=== PATIENT | male | born 1955 | race Caucasian/White ===

== ENCOUNTER 2016-09-20 09:13 | Emergency (ER) | payer MEDICARE ==
[~2016-09-20 09:13] MED LIST: ASPI81TA82 PO; PRAV20 PO
[2016-09-20 09:15] VITALS: BP 120/92; PULSE 94; RESP 22; TEMP 98.6; O2SAT 97
[2016-09-20] MEDS ORDERED: TETANUS/DIPHTHERIA TOXOID ADULT 0.5 ML VIAL IM ONE (09:15)
[2016-09-20] MEDS ORDERED: LIDOCAINE 1%/EPINEPHrine 1:100,000 SOLN 20 ML VIAL INFIL ONE (09:15)
--- NOTE | 2016-09-20 09:24 | PD ---
HPI Chief Complaint: seizure Time Seen by Provider: 09:15 Travel History International Travel<30 days: No Contact w/Intl Traveler<30days: No Traveled to known affect area: No History of Present Illness HPI 61-year-old male was brought in by EMS after a seizure episode. Patient was at a local store and had a seizure episode. Witnesses described the seizure generalized tonic clonic. Patient fell and hit his head. Patient has a laceration to the back of the head. Patient states that he has burning pain to the back to the head. Patient also states that he bit his tongue. Patient denies any visual change. Patient denies any neck pain. Patient denies any chest pain or shortness of breath. Patient denies abdominal pain. Patient denies any focal weakness or numbness of extremity. Patient denies any history of illicit drug abuse. Patient states that he drinks alcohol once in a while. Patient denies any history of DT in the past. Patient denies any history of seizure. Patient states that he is not up-to-date with TD booster. Patient has history of neck and back surgery in the past. Patient also has history of left ventricular ejection fraction of 50%. PFSH Past Medical History Hx Anticoagulant Therapy: No Arthritis: No Asthma: No Heart Rhythm Problems: No Cancer: No Cardiovascular Problems: No Chemotherapy: No Congestive Heart Failure: No COPD: No Cerebrovascular Accident: No Diabetes: No Diminished Hearing: No Endocrine: No GERD: No Glaucoma: No Genitourinary: No Headaches: No Hepatitis: No Hiatal Hernia: No Hypertension: No Immune Disorder: No Implanted Vascular Access Dvce: Yes Musculoskeletal: Yes Neurologic: No Psychiatric: No Reproductive: No Respiratory: No Immunizations Current: No Migraines: No Renal Failure: No Seizures: No Thyroid Disease: No Ulcer: No Past Surgical History Abdominal Surgery: No Body Medical Devices: CERVICAL HARDWARE Cardiac Surgery: No Ear Surgery: No Endocrine Surgery: No Eye Surgery: No Genitourinary Surgery: No Gynecologic Surgery: No Oral Surgery: No Pacemaker: No Thoracic Surgery: No Other Surgery: Yes Social History Alcohol Use: Yes ("VERY RARELY") Tobacco Use: No Substance Use: No Allergies-Medications (Allergen,Severity, Reaction): Coded Allergies: Aspirin (Verified Adverse Reaction, Severe, NAUSEA, 09/20/16) Codeine (Verified Adverse Reaction, Severe, HIVES, 09/20/16) Darvocet-N 100 (Verified Adverse Reaction, Severe, NAUSEA, 09/20/16) Ibuprofen (Verified Adverse Reaction, Severe, NAUSEA, 09/20/16) Reported Meds & Prescriptions Reported Meds & Active Scripts Active Keppra (Levetiracetam) 750 Mg Tab 750 Mg PO BID Augmentin (Amoxicillin-Clavulanate) 875-125 Mg Tab 1 Tab PO BID Review of Systems General / Constitutional: No: Fever Eyes: No: Visual changes HENT: Positive: Headaches Cardiovascular: No: Chest Pain or Discomfort Respiratory: No: Shortness of Breath Gastrointestinal: No: Abdominal Pain Genitourinary: No: Dysuria Musculoskeletal: No: Pain Skin: No Rash Neurologic: No: Weakness Psychiatric: No: Depression Endocrine: No: Polydipsia Hematologic/Lymphatic: No: Easy Bruising Physical Exam Narrative GENERAL: Well-nourished, well-developed patient. SKIN: Focused skin assessment warm/dry. HEAD: Normocephalic. Patient has a V-shaped laceration measuring about 7 centimeter on the occipital area of the scalp. No active bleeding. EYES: No scleral icterus. No injection or drainage. Pupils 3 mm equal reactive. Patient has abrasion and with mild ecchymosis tip of the tongue. No active bleeding. NECK: Supple, trachea midline. No JVD or lymphadenopathy. CARDIOVASCULAR: Regular rate and rhythm without murmurs, gallops, or rubs. RESPIRATORY: Breath sounds equal bilaterally. No accessory muscle use. GASTROINTESTINAL: Abdomen soft, non-tender, nondistended. MUSCULOSKELETAL: No cyanosis, or edema. BACK: Nontender without obvious deformity. No CVA tenderness. Neurologic exam: Patient is awake and alert oriented 3. No obvious focal neurological deficit. Data Data Last Documented VS Vital Signs Date Time Temp Pulse Resp B/P Pulse Ox O2 Delivery O2 Flow Rate FiO2 09/20/16 10:13 98.6 88 20 95/74 96 Orders Electrocardiogram (09/20/16 09:15) Complete Blood Count With Diff (09/20/16 09:15) Comprehensive Metabolic Panel (09/20/16 09:15) Prothrombin Time / Inr (Pt) (09/20/16 09:15) Act Partial Throm Time (Ptt) (09/20/16 09:15) Urinalysis - C+S If Indicated (09/20/16 09:15) Thyroid Stimulating Hormone (09/20/16 09:15) Chest, Single Ap (09/20/16 09:15) Ct Brain W/O Iv Contrast(Rout) (09/20/16 09:15) Iv Access Insert/Monitor (09/20/16 09:15) Ecg Monitoring (09/20/16 09:15) Oximetry (09/20/16 09:15) Drug Screen, Random Urine (09/20/16 09:15) Tetanus/Diphtheria Tox Adult (Tetanus/Di (09/20/16 09:15) Lidocai-Epi 1%-1:100,000 Inj (Xylocaine- (09/20/16 09:30) Sodium Chlor 0.9% 1000 Ml Inj (Ns 1000 M (09/20/16 10:15) Labs Laboratory Tests Test 09/20/16 09:25 White Blood Count 9.2 TH/MM3 Red Blood Count 4.43 MIL/MM3 Hemoglobin 13.2 GM/DL Hematocrit 37.8 % Mean Corpuscular Volume 85.4 FL Mean Corpuscular Hemoglobin 29.9 PG Mean Corpuscular Hemoglobin 35.0 % Concent Red Cell Distribution Width 13.0 % Platelet Count 265 TH/MM3 Mean Platelet Volume 7.3 FL Neutrophils (%) (Auto) % Lymphocytes (%) (Auto) % Monocytes (%) (Auto) % Eosinophils (%) (Auto) % Basophils (%) (Auto) % Neutrophils # (Auto) TH/MM3 Lymphocytes # (Auto) TH/MM3 Monocytes # (Auto) TH/MM3 Eosinophils # (Auto) TH/MM3 Basophils # (Auto) TH/MM3 CBC Comment AUTO DIFF Differential Total Cells 100 Counted Neutrophils % (Manual) 82 % Lymphocytes % 9 % Monocytes % 8 % Eosinophils % 1 % Neutrophils # (Manual) 7.5 TH/MM3 Differential Comment FINAL DIFF MANUAL Platelet Estimate NORMAL Platelet Morphology Comment NORMAL Red Cell Morphology Comment NORMAL Prothrombin Time 10.7 SEC Prothromb Time International 1.0 RATIO Ratio Activated Partial 27.0 SEC Thromboplast Time Sodium Level 140 MEQ/L Potassium Level 3.4 MEQ/L Chloride Level 105 MEQ/L Carbon Dioxide Level 24.2 MEQ/L Anion Gap 11 MEQ/L Blood Urea Nitrogen 31 MG/DL Creatinine 1.20 MG/DL Estimat Glomerular Filtration 62 ML/MIN Rate Random Glucose 118 MG/DL Calcium Level 8.4 MG/DL Total Bilirubin 0.8 MG/DL Aspartate Amino Transf 37 U/L (AST/SGOT) Alanine Aminotransferase 32 U/L (ALT/SGPT) Alkaline Phosphatase 106 U/L Total Protein 7.3 GM/DL Albumin 3.7 GM/DL Thyroid Stimulating Hormone 1.990 uIU/ML [address] [place] [address] Medical Decision Making Medical Screen Exam Complete: Yes Emergency Medical Condition: Yes Interpretation(s) Last Impressions Head CT 09/20/16914 Signed Impressions: Service Date/Time: Tuesday, September 20, 2016 09:35 - CONCLUSION: Bilateral maxillary sinus air-fluid levels and mucosal thickening. Sumeet Ruffin MD Chest X-Ray 09/20/16914 Signed Impressions: Service Date/Time: Tuesday, September 20, 2016 09:37 - CONCLUSION: No acute disease. Sumeet Rufifn MD 10:27 AM. CBC within normal limit. Potassium 3.4. CMP otherwise within normal limit. BUN 31. Differential Diagnosis Differential diagnosis including seizure, TIA, CVA, electrolyte abnormality, head injury Narrative Course 61-year-old male with seizure and head injury. TD booster given. I spoke with neurologist treasury management sales consultant, Dr. New. Advised Keppra and follow-up in the office. Keppra 1 g IV given. Normal saline solution 1 L IV bolus. Procedures Procedure Narrative LACERATION LOCATION: Scalp LENGTH: 7 cm NUMBER OF STITCHES/MACK: 14 REPAIR: The area of the laceration was prepped with Betadine and sterilely draped. The laceration was infiltrated with 1% lidocaine with epinephrine. The wound was copiously irrigated and explored without evidence of foreign body , tendon injury or neurovascular injury. The wound was closed using mack. This was a single layer repair. A sterile dressing was applied. The patient was advised to keep the dressing clean and dry. Patient tolerated the procedure well. Diagnosis Primary Impression: Seizure Additional Impressions: Scalp laceration Qualified Code: S01.01XA - Scalp laceration, initial encounter Sinusitis Qualified Code: J01.00 - Acute non-recurrent maxillary sinusitis Dehydration Abrasion of tongue Qualified Code: S00.512A - Abrasion of tongue, initial encounter Patient Instructions: General Instructions Additional Instructions: Keppra as directed. Augmentin as directed. Follow-up with neurologist. No driving until cleared by neurologist. Head trauma instructions given. Wound care daily. Return or see physician in 10 days for staple removal. Med/Other Pt SpecificInfo: Prescription(s) given Scripts Levetiracetam (Keppra)750 Mg Hyo812 Mg PO BID #60 TAB Ref 0 Prov:Buck Mercedes MD 09/20/16 Amoxicillin-Clavulanate (Augmentin)875-125 Mg Tab1 Tab PO BID #20 TAB Prov:Buck Mercedes MD 09/20/16 Disposition: 01 DISCHARGE HOME Condition: Stable Buck Mercedes MD Sep 20, 2016 09:24
[2016-09-20 09:30] VITALS: O2SAT 97
[2016-09-20] MEDS ORDERED: LIDOCAINE 1%/EPINEPHrine 1:100,000 SOLN 30 ML VIAL INFIL ONE (09:30)
[2016-09-20 09:36] LABS: HEMATOCRIT 37.8 % (39.0-51.0); MEAN CELL VOLUME 85.4 FL (80.0-100.0); MEAN CORPUSCULAR HEMOGLOBIN 29.9 PG (27.0-34.0); PLATELET COUNT 265 TH/MM3 (150-450); RED BLOOD COUNT 4.43 MIL/MM3 (4.50-5.90); WHITE BLOOD COUNT 9.2 TH/MM3 (4.0-11.0)
--- NOTE | 2016-09-20 09:46 | RADRPT ---
EXAM DATE/TIME: 09/20/2016 09:37 [facility] COMPARISON: CHEST SINGLE AP, September 18, 2015, 15:14. INDICATIONS : Syncope with fall MEDICAL HISTORY : None. SURGICAL HISTORY : Spinal ENCOUNTER: Initial ACUITY: 1 day PAIN SCORE: 0/10 LOCATION: Bilateral chest FINDINGS: A single view of the chest demonstrates the lungs to be symmetrically aerated without evidence of mas s, infiltrate or effusion. The cardiomediastinal contours are unremarkable. Osseous structures are intact. ACDF hardware overlies the cervical spine. CONCLUSION: No acute disease. Sumeet Ruffin MD on September 20, 2016 at 9:43 Board Certified Radiologist. This report was verified electronically.
[2016-09-20 09:52] LABS: HEMO FLAGS AUTO DIFF
[2016-09-20 09:55] LABS: CHLORIDE 105 MEQ/L (98-107); POTASSIUM 3.4 MEQ/L (3.5-5.1); SODIUM (NA) 140 MEQ/L (136-145)
[2016-09-20 09:58] LABS: ANION GAP 11 MEQ/L (5-15); BICARBONATE 24.2 MEQ/L (21.0-32.0)
[2016-09-20 09:59] LABS: BLOOD UREA NITROGEN 31 MG/DL (7-18); PROTHROMBIN TIME - PATIENT 10.7 SEC (9.8-11.6)
[2016-09-20 10:01] LABS: ALT (GPT) 32 U/L (12-78)
[2016-09-20 10:02] LABS: GLOMERULAR FILTRATION RATE 62 ML/MIN (>89)
[2016-09-20 10:03] LABS: AST (GOT) 37 U/L (15-37); TOTAL BILIRUBIN ADULT 0.8 MG/DL (0.2-1.0)
[2016-09-20 10:04] LABS: ALKALINE PHOSPHATASE 106 U/L (45-117)
[2016-09-20 10:07] LABS: EOSINOPHILS 1 % (0-4); NEUTROPHIL # MANUAL DIFF 7.5 TH/MM3 (1.8-7.7); PLATELET ESTIMATE SMEAR NORMAL (NORMAL); PLATELET MORPHOLOGY NORMAL (NORMAL); POLYS (SEG NEUTROPHILS) 82 % (16-70); SCAN/DIFF FINAL DIFF MANUAL; WBC DIFF SAMPLE 100
--- NOTE | 2016-09-20 10:08 | RADRPT ---
EXAM DATE/TIME: 09/20/2016 09:35 [facility] COMPARISON: No previous studies available for comparison. INDICATIONS : Witnessed seizure fell, hit the back of his head, laceration. RADIATION DOSE: 65.14 CTDIvol (mGy) MEDICAL HISTORY : None SURGICAL HISTORY : Fusion, cervical. ENCOUNTER: Initial ACUITY: 1 day PAIN SCALE: 7/10 LOCATION: posterior head TECHNIQUE: Multiple contiguous axial images were obtained of the head. Using automated exposure control and adj ustment of the mA and/or kV according to patient size, radiation dose was kept as low as reasonably a chievable to obtain optimal diagnostic quality images. DICOM format image data is available electro nically for review and comparison. FINDINGS: CEREBRUM: The ventricles are normal for age. No evidence of midline shift, mass lesion, hemorrhage or acute in farction. No extra-axial fluid collections are seen. POSTERIOR FOSSA: The cerebellum and brainstem are intact. The 4th ventricle is midline. The cerebellopontine angle i s unremarkable. EXTRACRANIAL: The visualized portion of the orbits is intact. SKULL: The calvaria is intact. No evidence of skull fracture. Air-fluid levels and mucosal thickening in bi lateral maxillary sinuses. CONCLUSION: Bilateral maxillary sinus air-fluid levels and mucosal thickening. Sumeet Ruffin MD on September 20, 2016 at 10:03 Board Certified Radiologist. This report was verified electronically.
[2016-09-20 10:13] VITALS: BP 95/74; PULSE 88; RESP 20; TEMP 98.6; O2SAT 96
[2016-09-20] MEDS ORDERED: SODIUM CHLOR 0.9% 1000 ML INJ 1,000 ML IV ONE (10:15)
[2016-09-20] MEDS ORDERED: AUGM875T3 PO (10:29)
[2016-09-20] MEDS ORDERED: KEPP750T PO (10:29)
[2016-09-20] MEDS ORDERED: levETIRAcetam 1000 MG INJ 100 ML IV ONE (10:45)
[2016-09-20 11:20] VITALS: BP 106/77
--- NOTE | 2016-09-20 11:50 | EKG ---
Date Performed: 09/20/2016 Time Performed: 09:30:20 PTAGE: 61 years EKG: Sinus rhythm LEFT ATRIAL ENLARGEMENT POSSIBLE LEFT VENTRICULAR HYPERTROPHY NONSPECIFIC ST & T-WAVE ABNORMALITY AB NORMAL ECG Compared to prior electrocardiogram, T-wave changes are more prominent. PREVIOUS TRACING : 09/18/2015 20.35 DOCTOR: Terry Jean Interpretating Date/Time 09/20/2016 11:50:12
== END 2016-09-20 11:21 | disposition home or self-care (01) ==
LOC: PHED 09:13
DX: S01.01XA Laceration without foreign body of scalp, initial encounter (principal); S00.512A Abrasion of oral cavity, initial encounter; E86.0 Dehydration; J01.00 Acute maxillary sinusitis, unspecified; R56.9 Unspecified convulsions; Z23 Encounter for immunization; R94.31 Abnormal electrocardiogram [ECG] [EKG]; W18.30XA Fall on same level, unspecified, initial encounter; Y93.9 Activity, unspecified; Y99.9 Unspecified external cause status; Y92.512 Supermarket, store or market as the place of occurrence of the external cause; I51.7 Cardiomegaly
CPT/HCPCS: 12002; 70450; 71010; 80053; 84443; 85007; 85027; 85610; 85730; 90714; 93005; 96365; 96372; 99285; J1953; J7030

== ENCOUNTER 2016-10-02 07:35 | Emergency (ER) | payer MEDICARE ==
[~2016-10-02] VITALS: Ht 170.2 cm; Wt 88.0 kg
[~2016-10-02 07:35] MED LIST changes: -ASPI81TA82 PO; +AUGM875T3 PO; +KEPP750T PO; -PRAV20 PO
--- NOTE | 2016-10-02 07:53 | PD ---
HPI Chief Complaint: Staple removal Time Seen by Provider: 07:37 Travel History International Travel<30 days: No Contact w/Intl Traveler<30days: No History of Present Illness HPI 61yo M presents to the ED for staple removal. Pt was here on 09/20/16 and had scalp laceration after seizure. States he has an outpatient neurologist appointment set up. Denies any fever, chest pain, sob, n/v, abdominal pain, focal weakness or numbness or any other seizure. PFSH Past Medical History Hx Anticoagulant Therapy: No Arthritis: No Asthma: No Heart Rhythm Problems: No Cancer: No Cardiovascular Problems: No Chemotherapy: No Congestive Heart Failure: No COPD: No Cerebrovascular Accident: No Diabetes: No Diminished Hearing: No Endocrine: No GERD: No Glaucoma: No Genitourinary: No Headaches: No Hepatitis: No Hiatal Hernia: No Hypertension: No Immune Disorder: No Implanted Vascular Access Dvce: Yes Musculoskeletal: Yes Neurologic: No Psychiatric: No Reproductive: No Respiratory: No Immunizations Current: No Migraines: No Renal Failure: No Seizures: No Thyroid Disease: No Ulcer: No Past Surgical History Abdominal Surgery: No Body Medical Devices: CERVICAL HARDWARE Cardiac Surgery: No Ear Surgery: No Endocrine Surgery: No Eye Surgery: No Genitourinary Surgery: No Gynecologic Surgery: No Oral Surgery: No Pacemaker: No Thoracic Surgery: No Other Surgery: Yes Social History Alcohol Use: Yes ("VERY RARELY") Tobacco Use: No Substance Use: No Allergies-Medications (Allergen,Severity, Reaction): Coded Allergies: Aspirin (Verified Adverse Reaction, Severe, NAUSEA, 09/20/16) Codeine (Verified Adverse Reaction, Severe, HIVES, 09/20/16) Darvocet-N 100 (Verified Adverse Reaction, Severe, NAUSEA, 09/20/16) Ibuprofen (Verified Adverse Reaction, Severe, NAUSEA, 09/20/16) Reported Meds & Prescriptions Reported Meds & Active Scripts Active Keppra (Levetiracetam) 750 Mg Tab 750 Mg PO BID Augmentin (Amoxicillin-Clavulanate) 875-125 Mg Tab 1 Tab PO BID Review of Systems Except as stated in HPI: all other systems reviewed are Neg Physical Exam Narrative GENERAL: 61yo M not in distress. SKIN: Focused skin assessment warm/dry. HEAD: +14 rosalba posterior scalp. EYES: Pupils equal and round. No scleral icterus. No injection or drainage. ENT: No nasal bleeding or discharge. Mucous membranes pink and moist. NECK: Trachea midline. No JVD. CARDIOVASCULAR: Regular rate and rhythm. No murmur appreciated. RESPIRATORY: No accessory muscle use. Clear to auscultation. Breath sounds equal bilaterally. GASTROINTESTINAL: Abdomen soft, non-tender, nondistended. MUSCULOSKELETAL: No obvious deformities. No clubbing. No cyanosis. No edema. NEUROLOGICAL: Awake and alert. No obvious cranial nerve deficits. Motor grossly within normal limits. Normal speech. PSYCHIATRIC: Appropriate mood and affect; insight and judgment normal. Data Data Last Documented VS Vital Signs Date Time Temp Pulse Resp B/P Pulse Ox O2 Delivery O2 Flow Rate FiO2 10/02/16 07:55 98.4 74 16 99/72 98 MDM Medical Decision Making Medical Screen Exam Complete: Yes Emergency Medical Condition: Yes Differential Diagnosis Staple removal Narrative Course 61yo M here with staple removal. There were some superficial bleeding after staple removal but wound is well approximated. +Scabs. Pt tolerated procedure. Procedures Procedure Narrative Total of 14 rosalba were removed. Diagnosis Primary Impression: Removal of rosalba Patient Instructions: General Instructions Departure Forms: Tests/Procedures Additional Instructions: Please follow up with your PMD in 3-7 days. Return to the ED if symptoms worsen. Med/Other Pt SpecificInfo: No Change to Meds Disposition: 01 DISCHARGE HOME Condition: Stable Yvonne Ospina DO Oct 02, 2016 07:53
[2016-10-02 07:55] VITALS: BP 99/72; PULSE 74; RESP 16; TEMP 98.4; O2SAT 98
== END 2016-10-02 08:48 | disposition home or self-care (01) ==
LOC: PHED 07:35
DX: S01.01XD Laceration without foreign body of scalp, subsequent encounter (principal); X58.XXXD Exposure to other specified factors, subsequent encounter; Z48.02 Encounter for removal of sutures
CPT/HCPCS: 99281

== ENCOUNTER 2016-11-19 10:36 | Emergency (ER) | payer MEDICARE, OTHER ==
[~2016-11-19] VITALS: Ht 170.2 cm; Wt 88.0 kg
[2016-11-19 10:39] VITALS: BP 115/78; PULSE 101; RESP 16; TEMP 97.4; O2SAT 99
[2016-11-19] MEDS ORDERED: PRED20 PO (11:22)
[2016-11-19] MEDS ORDERED: NORC5TAB PO (11:22)
[2016-11-19] MEDS ORDERED: CYCL1TAB29 PO (11:22)
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
== END 2016-11-19 11:29 | disposition home or self-care (01) ==
LOC: PHED 10:36 → PHEFT 11:29
DX: M43.6 Torticollis (principal)
CPT/HCPCS: 99284

== ENCOUNTER 2016-12-29 04:52 | Inpatient (IN) | payer MEDICARE, OTHER ==
[~2016-12-29] VITALS: Ht 172.7 cm; Wt 91.5 kg
[2016-12-29] VITALS (12 sets, daily range): BP systolic 119–135; BP diastolic 89–107; PULSE 46–100; RESP 18–20; TEMP 96.3–98.6; O2SAT 95–99
[~2016-12-29 04:52] MED LIST changes: -AUGM875T3 PO; +CYCL1TAB29 PO; -KEPP750T PO; +NORC5TAB PO; +PRED20 PO
[2016-12-29] MEDS ORDERED: SODIUM CHLORIDE 0.9% FLUSH 10 ML FLUSH IVF PRN (05:15)
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
[2016-12-29 05:27] LABS: BASOPHIL % 0.4 % (0.0-2.0); EOSINOPHIL % 0.7 % (0.0-4.0); HEMATOCRIT 41.5 % (39.0-51.0); HEMO FLAGS DIFF FINAL; LYMPH % 21.9 % (9.0-44.0); LYMPHOCYTE # 1.5 TH/MM3 (1.0-4.8); MEAN CELL VOLUME 87.2 FL (80.0-100.0); MEAN CORPUSCULAR HEMOGLOBIN 28.4 PG (27.0-34.0); MEAN CORPUSCULAR HGB CONC 32.5 % (32.0-36.0); MONO % 4.1 % (0.0-8.0); NEUT % 72.9 % (16.0-70.0); PLATELET COUNT 284 TH/MM3 (150-450); RED BLOOD COUNT 4.76 MIL/MM3 (4.50-5.90); RED CELL DISTRIBUTION WIDTH 14.2 % (11.6-17.2); WHITE BLOOD COUNT 6.8 TH/MM3 (4.0-11.0)
[2016-12-29 05:33] LABS: CHLORIDE 107 MEQ/L (98-107); POTASSIUM 4.4 MEQ/L (3.5-5.1); SODIUM (NA) 138 MEQ/L (136-145)
[2016-12-29 05:37] LABS: ANION GAP 7 MEQ/L (5-15); BLOOD UREA NITROGEN 23 MG/DL (7-18)
[2016-12-29 05:40] LABS: ALT (GPT) 42 U/L (12-78); AST (GOT) 23 U/L (15-37); GLOMERULAR FILTRATION RATE 68 ML/MIN (>89)
[2016-12-29 05:41] LABS: TOTAL BILIRUBIN ADULT 0.5 MG/DL (0.2-1.0)
[2016-12-29 05:43] LABS: ALKALINE PHOSPHATASE 97 U/L (45-117)
--- NOTE | 2016-12-29 05:50 | RADRPT ---
EXAM DATE/TIME: 12/29/2016 05:17 [facility] COMPARISON: CHEST SINGLE AP, September 20, 2016, 9:37. INDICATIONS : Shortness of breath. MEDICAL HISTORY : None. SURGICAL HISTORY : Fusion, cervical. ENCOUNTER: Initial ACUITY: 1 day PAIN SCORE: 0/10 LOCATION: Bilateral chest FINDINGS: Lungs are focally clear. No pleural effusion evident. Cardiac contours are stable and satisfactory cu rrent for technique and projection. CONCLUSION: No acute disease Mirza Russ MD on December 29, 2016 at 5:48 Board Certified Radiologist. This report was verified electronically.
[2016-12-29 05:57] LABS: APTT (PATIENT) 28.1 SEC (24.3-30.1); PROTHROMBIN TIME - PATIENT 10.7 SEC (9.8-11.6)
[2016-12-29 05:58] LABS: CREATINE KINASE 100 U/L (39-308)
[2016-12-29] MEDS ORDERED: IOHEXOL 350 MG/ML 10 ML VIAL (for RAD DIAG) IVCONTRAST ONE (06:43)
--- NOTE | 2016-12-29 06:49 | RADRPT ---
EXAM DATE/TIME: 12/29/2016 06:24 [facility] COMPARISON: No previous studies available for comparison. INDICATIONS : Shortness of breath. IV CONTRAST: 75 cc Omnipaque 350 (iohexol) IV RADIATION DOSE: 18.59 CTDIvol (mGy) MEDICAL HISTORY : None SURGICAL HISTORY : None. ENCOUNTER: Initial ACUITY: 1 day PAIN SCALE: 6/10 LOCATION: Bilateral chest TECHNIQUE: Volumetric scanning of the chest was performed using a pulmonary embolism protocol MIP images were re constructed. Using automated exposure control and adjustment of the mA and/or kV according to patien t size, radiation dose was kept as low as reasonably achievable to obtain optimal diagnostic quality images. DICOM format image data is available electronically for review and comparison. Follow-up recommendations for detected pulmonary nodules are based at a minimum on nodule size and pa tient risk factors according to Fleischner Society Guidelines. FINDINGS: PULMONARY ARTERIES: No filling defects are seen in the pulmonary arteries through the segmental level. LUNGS: Middle basilar atelectasis. PLEURAE: Small-moderate size bilateral effusions. Fissural fluid present. MEDIASTINUM: Mild prominence of central mediastinal lymph nodes. Coronary artery calcifications. MUSCULOSKELETAL: Within normal limits for patient age. MISCELLANEOUS: The visualized upper abdominal organs demonstrate no acute abnormality. CONCLUSION: Bilateral pleural effusions. Mild basilar atelectasis. No evidence of pulmonary embolism. Mirza Russ MD on December 29, 2016 at 6:44 Board Certified Radiologist. This report was verified electronically.
[2016-12-29] MEDS ORDERED: FUROSEMIDE 40 MG/4 ML VIAL IV PUSH ONE (07:00)
[2016-12-29] MEDS ORDERED: SODIUM CHLORIDE 0.9% FLUSH 10 ML FLUSH IV FLUSH PRN (07:15)
[2016-12-29] MEDS: SODIUM CHLORIDE 0.9% FLUSH 10 ML FLUSH IV FLUSH SCH ×2 (09:00→21:15)
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
--- NOTE | 2016-12-29 12:42 | EKG ---
Date Performed: 12/29/2016 Time Performed: 05:23:58 PTAGE: 61 years EKG: Sinus rhythm LEFT ATRIAL ENLARGEMENT NONSPECIFIC T-WAVE ABNORMALITY ABNORMAL ECG Compared to prior tracing no sig nificant change PREVIOUS TRACING : 09/20/2016 09.30 DOCTOR: Ashutosh Thomas Interpretating Date/Time 12/29/2016 12:36:54
[2016-12-29] MEDS: PANTOPRAZOLE SOD 40 MG DELAYED RELEASE TAB PO SCH (17:19)
[2016-12-29] MEDS ORDERED: diphenhydrAMINE HCL 50 MG CAP PO PRN (17:30)
[2016-12-30] VITALS (10 sets, daily range): BP systolic 107–142; BP diastolic 83–110; PULSE 84–99; RESP 17–20; TEMP 97.1–98; O2SAT 96–99
[2016-12-30 06:56] LABS: BICARBONATE 27.7 MEQ/L (21.0-32.0); POTASSIUM 3.6 MEQ/L (3.5-5.1)
[2016-12-30] MEDS: PANTOPRAZOLE SOD 40 MG DELAYED RELEASE TAB PO SCH (08:16)
[2016-12-30] MEDS: SODIUM CHLORIDE 0.9% FLUSH 10 ML FLUSH IV FLUSH SCH ×2 (08:16→21:00)
[2016-12-30] MEDS ORDERED: LISINOPRIL 10 MG TAB PO SCH (09:30)
--- NOTE | 2016-12-30 09:59 | PD.PN.STU ---
Subjective Remarks Pt is a 61y M who came in the ER on 12/29/16 for SOB lasting about a week. Initially, symptomatic on exertion and relieved by rest, but progressed to symptoms while at rest with no relief. Today, pt reports feeling well and denies SOB, MACKAY, CP, peripheral edema. Pt reports ambulating well to the bathroom and around the room. Objective Vitals Vital Signs Date Time Temp Pulse Resp B/P (MAP) Pulse Ox O2 Delivery O2 Flow Rate FiO2 12/30/16 08:00 97.9 90 18 120/94 (103) 98 12/30/16 04:00 97.9 91 20 142/110 (121) 99 12/30/16 00:00 97.9 94 18 131/97 (108) 98 12/29/16 20:29 95 21 12/29/16 20:00 98.6 98 20 120/92 (101) 96 12/29/16 16:00 98.5 100 20 133/107 (116) 97 12/29/16 12:00 98.2 93 18 119/100 (106) 98 12/29/16 10:13 46 I/O 12/29/16 12/29/16 12/29/16 12/30/16 12/30/16 12/30/16 07:00 15:00 23:00 07:00 15:00 23:00 Intake Total 60 ml 240 ml Output Total 300 ml Balance -240 ml 240 ml Intake Oral 60 ml 240 ml Output Urine Total 300 ml # Voids 5 # Bowel Movements 1 Result Diagram: 12/29/16 0510 12/30/16 0617 Other Results 12/30/16 12/30/16 12/31/16 15:00 23:00 07:00 Intake Total 240 ml Balance 240 ml Intake Oral 240 ml # Voids 5 # Bowel Movements 1 Imaging Laboratory Tests Test 12/29/16 05:10 12/29/16 12:15 12/30/16 06:17 Neutrophils (%) (Auto) 72.9 % (16.0-70.0) D-Dimer Quantitative (PE/DVT) 1.30 MG/L FEU (0.00-0.50) Blood Urea Nitrogen 23 MG/DL (7-18) 24 MG/DL (7-18) Calcium Level 8.3 MG/DL (8.5-10.1) Estimat Glomerular Filtration Rate 68 ML/MIN (>89) 62 ML/MIN (>89) Troponin I 0.06 NG/ML (0.02-0.05) B-Type Natriuretic Peptide 1513 PG/ML (0-100) Last Impressions CT Angiography 12/29/16 0559 Signed Impressions: Service Date/Time: Thursday, December 29, 2016 06:24 - CONCLUSION: Bilateral pleural effusions. Mild basilar atelectasis. No evidence of pulmonary embolism. Mirza Russ MD Chest X-Ray 12/29/16 0509 Signed Impressions: Service Date/Time: Thursday, December 29, 2016 05:17 - CONCLUSION: No acute disease Mirza Russ MD Objective Remarks GENERAL: very pleasant, well-developed male who was in no acute distress SKIN: Warm and dry. HEAD: Normocephalic. EYES: No scleral icterus. No injection or drainage. NECK: Supple, trachea midline. No JVD or lymphadenopathy. CARDIOVASCULAR: Regular rate and rhythm with a systolic murmur heard in left 3rd and 4th intercostal space. RESPIRATORY: Breath sounds equal bilaterally. No accessory muscle use. GASTROINTESTINAL: Abdomen soft, non-tender, nondistended. MUSCULOSKELETAL: moves all 4 extremities with no difficulty. No cyanosis, or edema. BACK: Nontender without obvious deformity. Procedures Reviewed echo results from Dr. Pyane A/P Assessment and Plan 1. SOB- improved. Echo results reviewed, consulted cardiology for severe aortic stenosis/chf, transfer patient to [facility] for poss aortic valve replacement surgery. Troponin and TSH wnl. 2. Mildly elevated troponin- normalized 3. Mild hypocalcemia- normalized Medical Decision Making Impression and Plan The exam, history, and the medical decision-making described in the above note were completed by the student with my assistance as the dictating practitioner. I attest that I had a [id number] encounter with the patient on the same day, and personally performed all of the history, exam, or medical decision making. I reviewed and agree with the plan. Patient examined, Plan discussed with patient, spouse and [id number] at bedside Care plan also discussed with instructor watch assembly Dr. Payne Patient will transfer to the [facility] for left heart catheter and further evaluation and treatment planning for symptomatic severe aortic stenosis with congestive heart failure Padmini Fuentes M3 Dec 30, 2016 09:59 Deana Rojas MD Dec 30, 2016 11:56
--- NOTE | 2016-12-30 10:56 | RADRPT ---
EXAM DATE/TIME: 12/30/2016 10:08 [facility] COMPARISON: CT PULMONARY ANGIOGRAM, December 29, 2016, 6:24. INDICATIONS : Short of breath. Pleural effusion. MEDICAL HISTORY : None. SURGICAL HISTORY : Discectomy, cervical. Tonsillectomy. ENCOUNTER: Initial ACUITY: 2 days PAIN SCORE: 0/10 LOCATION: chest FINDINGS: Interstitial prominence associated with small pleural effusions and fluid within the interlobar fissu res has developed. Heart remains normal in size. There are no consolidating infiltrates. CONCLUSION: Diffuse interstitial prominence associated with small bilateral effusions and fluid in interlobar fis sures. This characteristic of either mild congestion or acute interstitial pneumonitis. Ricardo Chase MD on December 30, 2016 at 10:52 Board Certified Radiologist. This report was verified electronically.
--- NOTE | 2016-12-30 11:33 | ECHRPT ---
Indication: Heart Failure CONCLUSIONS The left ventricular systolic function is severely reduced with an estimated ejection fraction in th e range of 25-30%. Mildly dilated left ventricle. There is global left ventricular dysfunction. Mild mitral valve regurgitation. Severe calcification of the aortic valve. Possible bicuspid aortic valve, although difficult to determine from this study Severe aortic valve stenosis (peak 71, mean 45, PARTH 0.5) Trace aortic valve regurgitation. BP: 131 / 97 HR: 108 Rhythm: Sinus MEASUREMENTS (Male / Female) Normal Values Technical Quality:Good 2D ECHO LV Diastolic Diameter PLAX 5.7 cm 4.2 - 5.9 / 3.9 - 5.3 cm LV Systolic Diameter PLAX 4.8 cm IVS Diastolic Thickness 1.0 cm 0.6 - 1.0 / 0.6 - 0.9 cm LVPW Diastolic Thickness 1.0 cm 0.6 - 1.0 / 0.6 - 0.9 cm LV Relative Wall Thickness 0.4 RV Internal Dim ED PLAX 2.5 cm LVOT Diameter 2.5 cm LA Systolic Diameter LX 4.0 cm 3.0 - 4.0 / 2.7 - 3.8 cm LV Ejection Fraction MOD 4C 29.7 % LV Cardiac Index MOD 4C 2932.9 cm/minm LV Ejection Fraction 4C AL 27.8 % LV Cardiac Index 4C AL 2813.2 cm/minm M-MODE Aortic Root Diameter MM 3.7 cm LA Systolic Diameter MM 4.0 cm LA Ao Ratio MM 1.1 AV Cusp Separation MM 1.0 cm DOPPLER AV Peak Velocity 421.5 cm/s AV Peak Gradient 71.1 mmHg AV Mean Gradient 44.5 mmHg AV Velocity Time Integral 95.0 cm AI Peak Velocity 347.0 cm/s AI Peak Gradient 48.2 mmHg AI Pressure Half Time 586.0 ms LVOT Peak Velocity 42.8 cm/s LVOT Peak Gradient 0.7 mmHg LVOT Velocity Time Integral 10.3 cm LVOT Cardiac Index 2698.7 cm/minm AV Area Cont Eq vti 0.5 cm AV Area Cont Eq pk 0.5 cm MV Peak Velocity 88.2 cm/s MV Peak Gradient 3.1 mmHg MV Mean Velocity 45.5 cm/s MV Mean Gradient 1.0 mmHg MV Area PHT 2.3 cm Mitral E Point Velocity 104.0 cm/s Mitral A Point Velocity 51.8 cm/s Mitral E to A Ratio 2.0 LV E' Lateral Velocity 5.0 cm/s Mitral E to LV E' Lateral Ratio 20.9 PV Peak Velocity 57.0 cm/s PV Peak Gradient 1.3 mmHg FINDINGS LEFT VENTRICLE The left ventricular systolic function is severely reduced with an estimated ejection fraction in th e range of 25-30%. Mildly dilated left ventricle. Wall thickness is normal. There is global left ventricular dysfunction. RIGHT VENTRICLE The right ventricular systoilc function is mildly decreased. LEFT ATRIUM The left atrial size is normal. RIGHT ATRIUM The right atrial size is normal. ATRIAL SEPTUM Normal atrial septal thickness without atrial level shunting by limited color doppler interrogation. AORTA The aortic root and proximal ascending aorta are normal in size on limited imaging. MITRAL VALVE Structurally normal mitral valve. Mild thickening of the mitral valve leaflets. Mild mitral valve regurgitation. No mitral valve stenosis. AORTIC VALVE The aortic valve is not well visualized. Severe calcification of the aortic valve. Possible bicuspid aortic valve, although difficult to determine from this study Trace aortic valve regurgitation. Severe aortic valve stenosis (peak 71, mean 45, PARTH 0.5) TRICUSPID VALVE Structurally normal tricuspid valve. No tricuspid valve stenosis or regurgitation. PULMONARY VALVE The pulmonary valve is not well visualized. VESSELS The inferior vena cava is normal in size. PERICARDIUM No pericardial effusion. Al Payne DO (Electronically Signed) Final Date:30 December 2016 11:32
[2016-12-31] VITALS (30 sets, daily range): BP systolic 90–111; BP diastolic 63–81; PULSE 72–101; RESP 16–18; TEMP 97.1–98.6; O2SAT 97–100
[2016-12-31] MEDS ORDERED: HEPARIN-NS/PF INJ 1,500 ML ONE (08:13)
[2016-12-31] MEDS ORDERED: MIDAZOLAM HCL 2 MG/2 ML VIAL ONE (08:13)
[2016-12-31] MEDS ORDERED: HEPARIN SODIUM - IV 10,000 UNITS/10 ML VIAL ONE (08:14)
[2016-12-31] MEDS ORDERED: VERAPAMIL HCL 5 MG/2 ML VIAL ONE (08:14)
[2016-12-31] MEDS ORDERED: NITROGLYCERIN INJ 5 ML ONE (08:14)
[2016-12-31] MEDS: SODIUM CHLORIDE 0.9% FLUSH 10 ML FLUSH IV FLUSH SCH ×2 (09:00→21:00)
[2016-12-31] MEDS ORDERED: ATROPINE SULFATE 1 MG/ML VIAL IV PUSH PRN (09:45)
[2016-12-31] MEDS ORDERED: SODIUM CHLOR 0.9% 250 ML INJ 250 ML IV PRN (09:45)
[2016-12-31] MEDS ORDERED: ONDANSETRON HCL 4 MG/2 ML VIAL IV PUSH PRN (09:45)
[2016-12-31] MEDS ORDERED: MISC INFORMATION XX ONE (09:45)
--- NOTE | 2016-12-31 09:45 | CATHPROC ---
[facility] HIS Report Study Information Study Number Admission Scheduled Start Study Start [id number] Dec 30 2016 11:54AM 12/30/2016 Dec 31 2016 8:00AM [place] Service Cardiac Catheterization Admit Source Facility Department Emergency department [facility] - [facility] Physician and Clinical Staff Initial MD Payne, Al Investigator Fraudfabiana Villegas RN, Jon Recorder Mounika Clark,COAT EXAMINER TECH2 Scrub Tatianna Nowak,STU TECH2 Procedures Performed Procedure Location (Site) Vessel Name Coronary Angiograms LCA Left Coronary Coronary Angiograms RCA Right Coronary IVUS Lft Main Prox Left Coronary Wire insertion Fem Art (right) Femoral Art Equipment Time Ruffling Hemmer Automatic Description Size Mfg Part Number Used/Scraped [id number] 09:17 GUIDO [employer] WIRE, ASACEED Tech PROWATER 180CM 180CM Used *[id number] 08:39 GRANGER VELÁZQUEZ SWAN RAFIA CATHETER FR 7 Used *[id number] TRANSDUCER, TRUWAVE [id number] 08:39 GRANGER VELÁZQUEZ * Used W/STOCKCOCK *[id number] TRANSDUCER, TRUWAVE [id number] 08:39 GRANGER VELÁZQUEZ * Used W/STOCKCOCK *[id number]- INTRODUCER SET, 08:47 [employer]. FR 5 SC-NT-U-SST Used MICROPUNCTURE, STIFFENED *[id number] [id number] *[id number] [id number] *[id number] 534-521T *[id number] 08:39 Baoku PACK, CCL CUSTOM * Used *[id number] 09:16 MEDTRONIC/AVE EBU 3.5 Z2 GUIDE CATHETER FR 6 Used *[id number] 08:39 SandForce MEDICAL SHEATH, FR5.5 PRELUDE 11CM FR 5 [id number] Used [id number]- 09:16 MERIT MEDICAL SHEATH, FR6.5 PRELUDE 11CM FR 6.5 038ACT Used *[id number]- 08:40 MERIT MEDICAL SHEATH, FR7.5 PRELUDE 11CM FR 7.5 11CM Used 038ACT [id number] 08:39 [employer] MEDICAL WIRE, 3MMJ .035 180CM 180CM Used *[id number] 08:39 NAMIC MANIFOLD, 2 PORT * Used *[id number] 08:39 NAMIC MANIFOLD, 4 PORT * Used *[id number] 08:39 NYCOMED OMNIPAQUE, 350 MG, 150ML 150ML [id number] Used [id number] 08:39 [employer] [place] MEDICAL BLANKET,WARM AIR CCL * Used *[id number] CATHETER, NENANA EYE KONGIGANAK [id number] 09:19 [place]OL[place]O Used IMAGING *[id number] Equipment Model, Serial, Lot Number and Expiration Data Description Model Number Serial Number Lot Number Expiration Date CATHETER, NENANA EYE KONGIGANAK [id number] 10-20-2018 IMAGING History: Allergies Allergy Reaction aspirin NAUSEA codeine HIVES Darvocet-N 100 NAUSEA ibuprofen NAUSEA propoxyphene NAUSEA acetaminophen NAUSEA No Known Allergies History: Risk Factors Family History of Hypertension Dyslipidemia Previous MD Previous Heart Failure Premature CAD No No No No No Prior Valve Prior PCI Prior CABG Surgery No No No Cerebrovascular Peripheral Artery Chronic Lung On Dialysis Diabetes Disease Disease Disease No No No No No History: Symptoms/Diagnosis Selection Items MCGILL SOB History: Stress Tests Stress or Imaging Studies Performed No History: Other Current Smoker No Labs Hgb (g/dl) Hct (%) RBC (MIL/MM3) WBC (l/cumm) Platelets (thousands) 11.60-17.00 35.00-51.00 4.00-5.90 4.00-11.00 150.00-450.00 13.5 41.5 4.7 6.8 284 Glucose (mg/dl) BUN (mg/dl) Creatinine (mg/dl) BUN:Creatinine (1:x) 74.00-106.00 7.00-18.00 0.50-1.30 10.00-20.00 101 27 1.2 22.5 Na (meq/l) K (meq/l) Cl (meq/l) CO2 (mmol/L) Ca (mg/dl) 136.00-145.00 3.50-5.10 98.00-107.00 21.00-32.00 8.50-10.10 139 3.6 105 27.7 8.5 PT (sec) PTT (sec) INR (PTT:PT) 9.80-11.60 24.30-30.10 0.90-1.10 10.7 28.1 1 Troponin I (ng/ml) 0.02-0.05 0.05 Medication Medication Total Dose (Bolus/Oral) Medication Total Dosage/Unit 1% XYLOCAINE 20 mL FENTANYL 50 mcg HEPARIN 6300 units Medications (Bolus/Oral) Medication Time Given Dosage/Unit Administered By Reason FENTANYL 12/31/2016 8:36:13 AM 50 mcg Jon Villegas RN 50 mcg FENTANYL given in lab by Jon Villegas RN in Left Antecubital via Peripheral IV. Ordered by Al Bennett. 1% XYLOCAINE 12/31/2016 8:37:38 AM 20 mL Al Payne 20 mL 1% XYLOCAINE given in lab by Al Payne in Right Groin via Subcutaneous. Ordered by Al Wallis. HEPARIN 12/31/2016 9:19:07 AM 6300 units Jon Villegas RN 6300 units HEPARIN given in lab by Jon Villegas RN in Left Antecubital via Peripheral IV. Ordered by Al Payne. Medication (Drip) Medication Time Given Dosage/Unit Concentration/Unit Diluent (ml) Solution IV Solutions 12/31/2016 8:15:11 AM 0 mL (IV) 500 NaCl .9 IV Solutions given in lab by Jon Villegas RN in Left Antecubital via Peripheral IV. Pump/Drip Flow = 20 ml/hr using NaCl .9. Ordered by Al Payne. Initial Case Assessment Cardiovascular HR NIBP 89 114/94 Edema Present Skin color Skin None Normal Warm Dry Circulatory - Right Pulses Dorsalis Pedis Femoral 3 3 Scale (0,1,2,3,4,d) Circulatory - Left Pulses Dorsalis Pedis Femoral 3 3 Scale (0,1,2,3,4,d) Neurological State Oriented to time-place- Alert Moves all extremities person Respiration - General Respiration Rate SpO2 (%) (B/min) 18 99 Final Case Assessment Cardiovascular HR NIBP 87 103/88 Edema Present Skin color Skin None Normal Warm Dry Circulatory - Right Pulses Dorsalis Pedis Femoral 3 3 Scale (0,1,2,3,4,d) Circulatory - Left Pulses Dorsalis Pedis Femoral 3 3 Scale (0,1,2,3,4,d) Neurological State Oriented to time-place- Alert Moves all extremities person Respiration - General Respiration Rate SpO2 (%) (B/min) 15 95 Chronological Log Time Study Chronological Log 8:09:11 Patient arrived via Bed. 8:09:13 Patient Name, D.O.B, / Armband Verified By R.N. 8:09:14 Consent signed by the physician and the patient and verified by the [facility] staff. 8:15:02 Pre-op and post- op instructions given; patient acknowledges understanding of instructions. 8:15:04 Patient has been NPO for More than 6Hrs. 8:15:05 NO Skin Breakdown- 8:15:06 Patient Warmer Placed on the Table. 8:15:07 Pablito Prominences Protected 8:15:10 A # 2 IV was noted in the Antecubital (left). Grade = 0 IV Solutions given in lab by Jon Villegas RN in Left Antecubital via Peripheral IV. Pump/Drip F low = 20 ml/hr using NaCl 8:15:11 .9. Ordered by Al Payne. Vitals capture started with the following parameters, Patient=Adult, Interval=3 min, Initial Pr grhovi=711 mmHg, 8:18:08 Deflation Rate=5 mmHg, Cuff placed on Left Ankle 8:18:43 HR=89 bpm, ZVGH=859/94 mmhg, SpO2=98.0 %, Resp=18 B/min, Pain=0, Kimmy=10, Ty=2 Assessment: Initial Case, HR=89 BPM, ENIC=705/94 mmhg, Edema=None, Color=Normal, Skin = Warm, D ry Right Pulses: Osman Ped=3, Femoral=3 8:18:56 Left Pulses: Osman Ped=3, Femoral=3 Neurological: State=Alert, Ox3, ARELLANO Respiration: Resp=18 B/min, SpO2=99 % 8:20:59 Reference ECG taken 8:21:35 HR=89 bpm, SZHJ=300/88 mmhg, SpO2=99.0 %, Resp=19 B/min, Pain=0, Kimmy=10, Ty=2 8:24:35 HR=79 bpm, DXRL=497/85 mmhg, SpO2=98 %, Resp=15 B/min, Pain=0, Kimmy=10, Ty=2 8:27:35 HR=91 bpm, UKOJ=404/85 mmhg, SpO2=98.0 %, Resp=14 B/min, Pain=0, Kimmy=10, Ty=2 8:30:38 HR=85 bpm, TRVK=681/87 mmhg, SpO2=99.0 %, Resp=13 B/min, Pain=0, Kimmy=10, Ty=2 8:31:23 Bilateral groins prepped with 2% chlorhexidine, and draped after a 3 minute waiting time. 8:32:22 Pressure channel 1 zeroed. 8:33:36 HR=92 bpm, AACJ=775/89 mmhg, SpO2=97 %, Resp=15 B/min, Pain=0, Kimmy=10, Ty=2 Time Out. Correct patient, correct procedure, correct physician, power injector not loaded with contrast with surgical 8:35:51 team present. Time Out Concurred by MD and individual staff in procedure. 8:36:13 50 mcg FENTANYL given in lab by Jon Villegas RN in Left Antecubital via Peripheral IV. Order ed by Al Payne. 8:36:36 HR=88 bpm, LJMI=834/75 mmhg, SpO2=95.0 %, Resp=14 B/min, Pain=0, Kimmy=10, Ty=2 8:36:38 Case Start 8:37:38 20 mL 1% XYLOCAINE given in lab by Al Payne in Right Groin via Subcutaneous. Ordere d by Al Payne. 8:39:16 Access site was Right Femoral Artery. A INTRODUCER SET, MICROPUNCTURE, STIFFENED FR 5 was advanced into the Fem Art (right) using the Modified 8:39:21 Seldinger technique. 8:39:34 HR=86 bpm, GWRU=675/86 mmhg, SpO2=98.0 %, Resp=14 B/min, Pain=0, Kimmy=10, Ty=2 A SHEATH, FR5.5 PRELUDE 11CM FR 5 was exchanged in the Fem Art (right). This was necessary in or itzel to achieve 8:39:40 vascular hemostasis. 8:42:35 HR=91 bpm, UVDQ=736/88 mmhg, SpO2=95.0 %, Resp=15 B/min, Pain=0, Kimmy=10, Ty=2 8:45:20 Access site was Right Femoral Vein. 8:45:35 HR=91 bpm, QLHA=142/87 mmhg, SpO2=96 %, Resp=13 B/min, Pain=0, Kimmy=10, Ty=2 A INTRODUCER SET, MICROPUNCTURE, STIFFENED FR 5 was advanced into the Fem Vein (right) using the Modified 8:45:40 Seldinger technique. A SHEATH, FR7.5 PRELUDE 11CM FR 7.5 11CM was exchanged in the Fem Vein (right). This was necessa ry in order 8:46:06 to achieve vascular hemostasis. Recorded Pressure: FA, HR=84, Condition=Condition 1 8:48:11 (Femoral Artery) FA 116/81/95 8:48:35 HR=95 bpm, VGDM=812/93 mmhg, SpO2=96 %, Resp=15 B/min, Pain=0, Kimmy=10, Ty=2 8:48:50 A SWAN RAFIA CATHETER FR 7 was inserted via Fem Vein (right) Recorded Pressure: PCW, HR=84, Condition=Condition 1 8:51:27 (Pulmonary Capillary Wedge) PCW 37/34/32 8:51:37 HR=85 bpm, NIBP=99/81 mmhg, SpO2=96 %, Resp=19 B/min, Pain=0, Kimmy=10, Ty=2 Recorded Pressure: MPA, HR=89, Condition=Condition 1 8:54:25 (Main Pulmonary Artery) MPA 55/37/44 8:54:33 HR=86 bpm, TJNM=192/85 mmhg, SpO2=96 %, Resp=15 B/min, Pain=0, Kimmy=10, Ty=2 Recorded Pressure: RV, HR=92, Condition=Condition 1 8:55:06 (Right Ventricle) RV 43/7/10 Recorded Pressure: RA, HR=88, Condition=Condition 1 8:55:28 (Right Atrium) RA 117 8:55:40 [place] Rafia Catheter Removed 8:56:07 Saturation: Site=Ao (Aorta) , O2=98.3 %, Hgb=98.3 gm/dl, Condition=Condition 1. Used in calc ulation. 8:56:28 Saturation: Site=PA (Pulmonary Artery) , O2=70.9 %, Hgb=13.5 gm/dl, Condition=Condition 1. U sed in calculation. A JR 4.0 INFINITI CATHETER FR 5 was advanced over a wire. OMNIPAQUE, 350 MG, 150ML 150ML was use d for 8:57:03 injections. Recorded Pressure: Ao, HR=92, Condition=Condition 1 8:57:19 (Aorta) Ao 112/90/101 8:57:38 HR=89 bpm, KNFA=657/81 mmhg, SpO2=95.0 %, Resp=15 B/min, Pain=0, Kimmy=10, Ty=2 After removing the current catheter a JL 4.0 INFINITI CATHETER FR 5 was advanced over a WIRE, 3M MJ .035 180CM 9:00:00 180CM. 9:00:38 HR=88 bpm, OFHO=204/80 mmhg, SpO2=97 %, Resp=17 B/min, Pain=0, Kimmy=10, Ty=2 9:02:26 The LCA was injected and visualized at various angles. OMNIPAQUE, 350 MG, 150ML 150ML used. 9:03:36 HR=92 bpm, KJLP=612/86 mmhg, SpO2=94 %, Resp=14 B/min, Pain=0, Kimmy=10, Ty=2 9:06:41 HR=87 bpm, LENY=966/77 mmhg, SpO2=95.0 %, Resp=14 B/min, Pain=0, Kimmy=10, Ty=2 After removing the current catheter a AL 1 INFINITI CATHETER FR 5 was advanced over a WIRE, 3MMJ .035 180CM 9:08:40 180CM. 9:09:39 HR=92 bpm, ONJB=290/82 mmhg, SpO2=94.0 %, Resp=17 B/min, Pain=0, Kimmy=10, Ty=2 9:11:33 The RCA was injected and visualized at various angles. OMNIPAQUE, 350 MG, 150ML 150ML used. 9:12:41 HR=94 bpm, GFXA=326/84 mmhg, SpO2=95.0 %, Resp=14 B/min, Pain=0, Kimmy=10, Ty=2 9:15:43 HR=85 bpm, NIBP=96/68 mmhg, SpO2=97 %, Resp=14 B/min, Pain=0, Kimmy=10, Ty=2 A SHEATH, FR6.5 PRELUDE 11CM FR 6.5 was exchanged in the Fem Art (right). This was necessary in order for 9:18:10 catheter support. 9:18:37 HR=86 bpm, NBVG=578/78 mmhg, SpO2=95.0 %, Resp=18 B/min, Pain=0, Kimmy=10, Ty=2 9:19:07 6300 units HEPARIN given in lab by Jon Villegas RN in Left Antecubital via Peripheral IV. Or dered by Al Payne. After removing the current catheter a EBU 3.5 Z2 GUIDE CATHETER FR 6 was advanced over a WIRE, 3 MMJ .035 9:19:22 180CM 180CM. 9:21:40 HR=89 bpm, DMQC=858/76 mmhg, SpO2=92 %, Resp=19 B/min, Pain=0, Kimmy=10, Ty=2 9:21:58 A WIRE, [employer] PROWATER 180CM 180CM was inserted via Fem Art (right). 9:23:45 An CATHETER, NENANA EYE KONGIGANAK IMAGING was advanced through the lesion. Images saved o [employer] IVUS hard drive 9:24:25 IVUS in progress using CATHETER, NENANA EYE KONGIGANAK IMAGING 9:24:42 HR=77 bpm, OPPI=623/81 mmhg, SpO2=92 %, Resp=17 B/min, Pain=0, Kimmy=10, Ty=2 9:25:11 IVUS catheter removed 9:25:59 Wire removed 9:26:06 A WIRE, 3MMJ .035 180CM 180CM was inserted via Fem Art (right). 9:26:26 Catheter was removed 9:27:22 Activated Clotting Time Drawn 9:27:40 HR=86 bpm, TLPV=840/80 mmhg, SpO2=95.0 %, Resp=13 B/min, Pain=0, Kimmy=10, Ty=2 9:30:07 Activated Clotting Time Drawn 9:30:40 HR=88 bpm, WTOO=604/81 mmhg, SpO2=95 %, Resp=11 B/min, Pain=0, Kimmy=10, Ty=2 9:33:05 Case End 9:33:39 HR=85 bpm, NPKQ=646/83 mmhg, SpO2=95.0 %, Resp=8 B/min, Pain=0, Kimmy=10, Ty=2 9:34:53 ACT (Normal Range 90-180) = 247 9:35:25 In the Fem Art (right) the SHEATH, FR6.5 PRELUDE 11CM FR 6.[address] by Tatianna Nowak RCIS TECH2. In the Fem Vein (right) the SHEATH, FR7.5 PRELUDE 11CM FR 7.5 11CM was sutured in place by Tatianna Brown RCIS 9:35:27 TECH2. 9:36:24 Sterile dressing applied to site 9:36:43 HR=87 bpm, QYCA=505/77 mmhg, SpO2=95 %, Resp=15 B/min, Pain=0, Kimmy=10, Ty=2 Assessment: Final Case, HR=87 BPM, REBC=351/88 mmhg, Edema=None, Color=Normal, Skin = Warm, Dry Right Pulses: Osman Ped=3, Femoral=3 9:38:01 Left Pulses: Osman Ped=3, Femoral=3 Neurological: State=Alert, Ox3, ARELLANO Respiration: Resp=15 B/min, SpO2=95 % Vitals capture started with the following parameters, Patient=Adult, Interval=3 min, Initial Pre glvrm=986 mmHg, 9:38:19 Deflation Rate=5 mmHg, Cuff placed on Left Ankle 9:38:55 Vitals capture stopped. 9:40:47 No case complications noted. 9:40:49 Cine recording checked. 9:40:52 Bedside Report will be given. 9:40:58 A Left and Right Heart Cath was performed. 9:41:03 Patient moved to stretcher 9:41:06 Clinical correlaton risk stratification. End Study - Contrast Media Used In Study Contrast Total Opened (mL) Total Used (mL) Total Wasted (mL) Omnipaque 100 100 0 End Study - Maximum Contrast Load Max Contrast Load (mL) 370.1 End Study - Radiation Exposure Fluoro Time (minutes) 11.8 End Study - Patient Disposition Complications Transferred To Telemetry Bed
[2016-12-31] MEDS ORDERED: INFLUENZA VIRUS VACCINE (QUADRIVALENT) 0.5 ML SYR IM ONE (10:00)
[2016-12-31] MEDS: PANTOPRAZOLE SOD 40 MG DELAYED RELEASE TAB PO SCH (11:55)
--- NOTE | 2016-12-31 13:16 | HHI.PR ---
Subjective Remarks Patient was transferred from [place] for evaluation with Dr. Payne underwent cardiac catheterization. It is felt that he will need coronary artery bypass graft of a couple vessels as well as a valve surgery Exact details are not available yet since the patient cardiac catheterization report is not available yet Cardiovascular surgery has been counseled to eval the patient also. Patient is currently laying flat in the bed with a right groin sheath in place Currently denies any nausea, vomiting, or diarrhea or constipation, denies any fevers, chills, or dysuria, urgency, frequency, hematuria, or hematochezia Objective Vitals Vital Signs Date Time Temp Pulse Resp B/P (MAP) Pulse Ox O2 Delivery O2 Flow Rate FiO2 12/31/16 12:00 91 12/31/16 11:15 97.1 72 16 111/80 (90) 98 12/31/16 11:00 81 12/31/16 10:00 90 12/31/16 09:00 78 12/31/16 07:30 97.4 89 16 107/81 (90) 97 12/31/16 07:00 84 12/31/16 06:29 75 12/31/16 05:08 90 12/31/16 04:24 93 12/31/16 03:42 78 12/31/16 03:42 97.6 90 16 98/65 (76) 97 12/31/16 03:30 97 12/31/16 02:28 97 12/31/16 01:22 95 12/31/16 00:10 89 12/30/16 23:30 84 12/30/16 23:30 98.0 88 17 110/83 (92) 97 12/30/16 22:12 89 12/30/16 21:30 92 12/30/16 20:40 97.6 99 18 113/83 (93) 98 12/30/16 20:40 96 12/30/16 20:00 97.1 89 20 110/93 (99) 97 12/30/16 16:01 97.7 92 18 108/91 (97) 97 I/O 12/30/16 12/30/16 12/30/16 12/31/16 12/31/16 12/31/16 07:00 15:00 23:00 07:00 15:00 23:00 Intake Total 240 ml 180 ml Output Total 200 ml Balance 240 ml -20 ml Intake Oral 240 ml 180 ml Output Urine Total 200 ml # Voids 5 # Bowel Movements 1 Result Diagram: 12/29/16 0510 12/30/16 0617 Other Results Laboratory Tests Test 12/29/16 05:10 12/29/16 12:15 12/30/16 06:17 12/31/16 01:30 White Blood Count 6.8 TH/MM3 Red Blood Count 4.76 MIL/MM3 Hemoglobin 13.5 GM/DL Hematocrit 41.5 % Mean Corpuscular Volume 87.2 FL Mean Corpuscular Hemoglobin 28.4 PG Mean Corpuscular Hemoglobin Concent 32.5 % Red Cell Distribution Width 14.2 % Platelet Count 284 TH/MM3 Mean Platelet Volume 8.1 FL Neutrophils (%) (Auto) 72.9 % Lymphocytes (%) (Auto) 21.9 % Monocytes (%) (Auto) 4.1 % Eosinophils (%) (Auto) 0.7 % Basophils (%) (Auto) 0.4 % Neutrophils # (Auto) 5.0 TH/MM3 Lymphocytes # (Auto) 1.5 TH/MM3 Monocytes # (Auto) 0.3 TH/MM3 Eosinophils # (Auto) 0.0 TH/MM3 Basophils # (Auto) 0.0 TH/MM3 CBC Comment DIFF FINAL Differential Comment Prothrombin Time 10.7 SEC Prothromb Time International Ratio 1.0 RATIO Activated Partial Thromboplast Time 28.1 SEC D-Dimer Quantitative (PE/DVT) 1.30 MG/L FEU Blood Urea Nitrogen 23 MG/DL 24 MG/DL Creatinine 1.10 MG/DL 1.20 MG/DL Random Glucose 102 MG/DL 101 MG/DL Total Protein 7.1 GM/DL Albumin 3.4 GM/DL Calcium Level 8.3 MG/DL 8.5 MG/DL Alkaline Phosphatase 97 U/L Aspartate Amino Transf (AST/SGOT) 23 U/L Alanine Aminotransferase (ALT/SGPT) 42 U/L Total Bilirubin 0.5 MG/DL Sodium Level 138 MEQ/L 139 MEQ/L Potassium Level 4.4 MEQ/L 3.6 MEQ/L Chloride Level 107 MEQ/L 105 MEQ/L Carbon Dioxide Level 24.0 MEQ/L 27.7 MEQ/L Anion Gap 7 MEQ/L 6 MEQ/L Estimat Glomerular Filtration Rate 68 ML/MIN 62 ML/MIN Total Creatine Kinase 100 U/L Troponin I 0.06 NG/ML 0.05 NG/ML B-Type Natriuretic Peptide 1513 PG/ML Thyroid Stimulating Hormone 3rd Gen 0.592 uIU/ML Urine Opiates Screen NEG Urine Barbiturates Screen NEG Urine Amphetamines Screen NEG Urine Benzodiazepines Screen NEG Urine Cocaine Screen NEG Urine Cannabinoids Screen NEG Imaging Last Impressions Chest X-Ray 12/30/16 0600 Signed Impressions: Service Date/Time: Friday, December 30, 2016 10:08 - CONCLUSION: Diffuse interstitial prominence associated with small bilateral effusions and fluid in interlobar fissures. This characteristic of either mild congestion or acute interstitial pneumonitis. Ricardo Chase MD CT Angiography 12/29/16 0559 Signed Impressions: Service Date/Time: Thursday, December 29, 2016 06:24 - CONCLUSION: Bilateral pleural effusions. Mild basilar atelectasis. No evidence of pulmonary embolism. Mirza Russ MD Objective Remarks GENERAL: Awake alert and oriented talkative and cooperative SKIN: Warm and dry. Multiple tattoos HEAD: Atraumatic. Normocephalic. EYES: Pupils equal and round. No scleral icterus. No injection or drainage. Extraocular muscles intact ENT: No nasal bleeding or discharge. Mucous membranes pink and moist. Tongue is midline NECK: Trachea midline. No JVD. Supple CARDIOVASCULAR: Regular rate and rhythm. S1 and S2 no S3 or S4 no heave or thrill or rub or gallop RESPIRATORY: No accessory muscle use. Clear to auscultation. Breath sounds equal bilaterally. GASTROINTESTINAL: Abdomen soft, non-tender, nondistended. Hepatic and splenic margins not palpable. MUSCULOSKELETAL: Extremities without clubbing, cyanosis, or edema. No obvious deformities. Right groin sheath in place NEUROLOGICAL: Awake and alert. No obvious cranial nerve deficits. Motor grossly within normal limits. Five out of 5 muscle strength in the arms and legs. Normal speech. PSYCHIATRIC: Appropriate mood and affect; insight and judgment normal. Procedures Cardiac catheterization December [address] Higgins Medications and IVs Current Medications Sodium Chloride (NS Flush) 2 ml UNSCH PRN IVF FLUSH AFTER USING IV ACCESS; Start 12/29/16 at 05:15; Stop 12/31/16 at 11:38; Status DC Iohexol (Omnipaque 350 Inj) 75 ml Delivered-MED ONCE IVCONTRAST Last administered on 12/29/16 06:43; Start 12/29/16 at 06:43; Stop 12/29/16 at 06:44; Status DC Furosemide (Lasix Inj) 40 mg ONCE ONCE IV PUSH Last administered on 12/29/16 07:22; Start 12/29/16 at 07:00; Stop 12/29/16 at 07:01; Status DC Sodium Chloride (NS Flush) 2 ml UNSCH PRN IV FLUSH FLUSH AFTER USING IV ACCESS ; Start 12/29/16 at 07:15 Sodium Chloride (NS Flush) 2 ml BID IV FLUSH Last administered on 12/31/16 09 :00; Start 12/29/16 at 09:00 Pantoprazole Sodium (Protonix) 40 mg DAILY PO Last administered on 12/31/16 11:55; Start 12/29/16 at 11:30 Diphenhydramine HCl (Benadryl) 50 mg HS PRN PO insomnia; Start 12/29/16 at 17: 30 Lisinopril (Prinivil) 10 mg DAILY PO Last administered on 12/30/16 09:41; Start 12/30/16 at 09:30; Stop 12/31/16 at 09:47; Status DC Influenza Virus Vaccine (Flu (Quadrivalent) Vaccine Inj) 0.5 ml ONCE ONCE IM Last administered on 12/31/16 11:57; Start 12/31/16 at 10:00; Stop 12/31/16 at 10:01; Status DC Heparin Sodium/ Sodium Chloride 1,500 ml @ As Directed STK-MED ONCE .ROUTE Last administered on 12/31/16 08:13; Start 12/31/16 at 08:13; Stop 12/31/16 at 08:14; Status DC Midazolam HCl (Versed Inj) 2 mg STK-MED ONCE .ROUTE ; Start 12/31/16 at 08:13; Stop 12/31/16 at 08:14; Status DC Fentanyl Citrate (fentaNYL INJ) 100 mcg STK-MED ONCE .ROUTE Last administered on 12/31/16 08:36; Start 12/31/16 at 08:14; Stop 12/31/16 at 08:15; Status DC Verapamil HCl (Isoptin Inj) 5 mg STK-MED ONCE .ROUTE ; Start 12/31/16 at 08:14 ; Stop 12/31/16 at 08:15; Status DC Heparin Sodium (Porcine) (Heparin Inj) 10,000 units STK-MED ONCE .ROUTE Last administered on 12/31/16 09:19; Start 12/31/16 at 08:14; Stop 12/31/16 at 08 :15; Status DC Nitroglycerin 5 ml @ As Directed STK-MED ONCE .ROUTE ; Start 12/31/16 at 08:14 ; Stop 12/31/16 at 08:15; Status DC Miscellaneous Information 1 ONCE ONCE XX Last administered on 12/31/16 09:45 ; Start 12/31/16 at 09:45; Stop 12/31/16 at 11:40; Status DC Atropine Sulfate (Atropine Inj) 0.5 mg UNSCH PRN IV PUSH VAGAL REPONSE; Start 12/31/16 at 09:45 Sodium Chloride 250 ml @ 500 mls/hr ONCE PRN IV VAGAL REPONSE; Start at 09:45; Stop 01/01/17 at 09:44 Ondansetron HCl (Zofran Inj) 4 mg Q4H PRN IV PUSH NAUSEA; Start 12/31/16 at 09 :45 Aspirin (Aspirin Chew) 81 mg DAILY CHEW ; Start 01/01/17 at 09:00 Urinary Catheter: No Vascular Central Line Catheter: No A/P Assessment and Plan 1. SOB- improved. Echo results reviewed, consulted cardiology for severe aortic stenosis/chf, transfer patient to [facility] for poss aortic valve replacement surgery. Troponin and TSH wnl. 2. Mildly elevated troponin- normalized 3. Mild hypocalcemia- normalized Severe aortic stenosis with congestive heart failure Underwent cardiac catheterization today with Dr. Higgins noted to have aortic valve issues and couple vessel coronary artery disease We'll get a.m. labs Discussed with patient and RN and family Await cardiovascular opinion and decision as to surgery Discharge Planning Await surgery before discharge Silvio Hernandez DO Dec 31, 2016 13:15
[2016-12-31] MEDS ORDERED: MAGNESIUM HYDROXIDE SUSP 30 ML CUP PO PRN (13:30)
[2016-12-31] MEDS ORDERED: SENNOSIDES 8.6 MG TAB PO PRN (13:30)
[2016-12-31] MEDS ORDERED: MORPHINE SULFATE 4 MG/ML INJ IV PUSH PRN ×2 (13:30)
[2016-12-31] MEDS ORDERED: LACTULOSE SYRUP 20 GM/30 ML CUP PO PRN (13:30)
[2016-12-31] MEDS ORDERED: SODIUM CHLORIDE 0.9% FLUSH 10 ML FLUSH IV FLUSH PRN ×2 (13:30→15:45)
[2016-12-31] MEDS ORDERED: BISACODYL 10 MG SUPP RECTAL PRN (13:30)
[2016-12-31] MEDS ORDERED: NALOXONE HCL 0.4 MG/ML AMP IV PUSH PRN (13:30)
[2016-12-31] MEDS ORDERED: ACETAMINOPHEN 325 MG TAB PO PRN ×2 (13:30)
[2016-12-31] MEDS ORDERED: PROCHLORPERAZINE 25 MG SUPP RECTAL PRN (13:30)
[2016-12-31] MEDS ORDERED: ONDANSETRON HCL 4 MG/2 ML VIAL IVP PRN (13:30)
[2016-12-31] MEDS ORDERED: IOHEXOL 350 MG/ML 100 ML BTL (for Cath Lab) OTHER ONE (13:32)
[2016-12-31] MEDS ORDERED: FUROSEMIDE 40 MG/4 ML VIAL IV PUSH ONE (14:45)
[2016-12-31 15:43] LABS: HEMOGLOBIN A1b 0.9 %; HEMOGLOBIN Ao 84.8 %; HEMOGLOBIN F 0.9 %; HEMOGLOBIN LA1C 2.2 %; HEMOGLOBIN P3 5.3 %
[2016-12-31] MEDS ORDERED: ceFAZolin 2 GM PREMIX 50 ML IV SCH (15:45)
[2016-12-31] MEDS ORDERED: METOPROLOL TARTRATE 25 MG TAB PO SCH (15:45)
[2016-12-31] MEDS ORDERED: INSULIN REGULAR (IV INFUSION) 100 UNITS in SODIUM CHLORIDE 0.9% INJ 99 ML IV PRN (15:45)
[2016-12-31] MEDS ORDERED: PAPAVERINE INJ 60 MG, NITROGLYCERIN INJ 100 MCG, DILTIAZEM INJ 100 MG in SODIUM CHLORID... IRRIGATION SCH (15:45)
[2016-12-31] MEDS ORDERED: CHLORHEXIDINE GLUCONATE 4% SOLN 120 ML BTL TOPICAL SCH (15:45)
[2016-12-31] MEDS ORDERED: CEFAZOLIN INJ 500 MG in SODIUM CHLORIDE 0.9% IRR BTL 500 ML IRRIGATION SCH (15:45)
--- NOTE | 2016-12-31 15:59 | PD.CAR.PN ---
CVT Progress Note Subjective/Hospital Course: sts data discussed with pt RISK SCORES About the STS Risk Calculator Procedure: AV Replacement + CAB Risk of Mortality: 2.743% Morbidity or Mortality: 20.268% Long Length of Stay: 9.22% Short Length of Stay: 29.512% Permanent Stroke: 1.035% Prolonged Ventilation: 13.134% DSW Infection: 0.334% Renal Failure: 3.765% Reoperation: 9.211% Objective: Vital Signs Date Time Temp Pulse Resp B/P (MAP) Pulse Ox O2 Delivery O2 Flow Rate FiO2 12/31/16 15:15 97.7 89 16 90/69 (76) 99 12/31/16 14:00 87 12/31/16 13:00 92 12/31/16 12:00 91 12/31/16 11:30 97.1 72 16 111/80 (90) 98 12/31/16 11:15 97.1 72 16 111/80 (90) 98 12/31/16 11:00 81 12/31/16 10:00 90 12/31/16 09:00 78 12/31/16 07:30 97.4 89 16 107/81 (90) 97 12/31/16 07:00 84 12/31/16 06:29 75 12/31/16 05:08 90 12/31/16 04:24 93 12/31/16 03:42 78 12/31/16 03:42 97.6 90 16 98/65 (76) 97 12/31/16 03:30 97 12/31/16 02:28 97 12/31/16 01:22 95 12/31/16 00:10 89 12/30/16 23:30 84 12/30/16 23:30 98.0 88 17 110/83 (92) 97 12/30/16 22:12 89 12/30/16 21:30 92 12/30/16 20:40 97.6 99 18 113/83 (93) 98 12/30/16 20:40 96 12/30/16 20:00 97.1 89 20 110/93 (99) 97 12/30/16 16:01 97.7 92 18 108/91 (97) 97 Labs: Laboratory Tests Test 12/31/16 12:05 Result Diagram: 12/29/16 0510 12/30/16 0617 Lilia Vega Dec 31, 2016 15:59
[2016-12-31 17:38] LABS: BLOOD, URINE NEG (NEG); GLUCOSE,URINE NEG (NEG); HYALINE CAST, URINE 1 /lpf (RARE); KETONE, URINE NEG (NEG); NITRITE,URINE NEG (NEG); SQUAMOUS EPITHELIAL CELL URINE <1 /hpf (0-5); URINE COLOR LIGHT-YELLOW (YELLW/STRAW)
[2016-12-31 17:40] LABS: COMMENT (UR) CULT NOT INDICATED; CULTURE IF INDICATED CULT NOT INDICATED
--- NOTE | 2016-12-31 17:52 | RADRPT ---
EXAM DATE/TIME: 12/31/2016 16:28 [facility] COMPARISON: No previous studies available for comparison. INDICATIONS : Preop cardiac surgery. MEDICAL HISTORY : Congestive heart failure. Dyspnea. SURGICAL HISTORY : Tonsillectomy. Orthopedic surgery, neck and back. Cardiac cath. ENCOUNTER: Initial ACUITY: 1 day PAIN SCORE: 0/10 LOCATION: Bilateral neck PEAK SYSTOLIC VELOCITIES (cm/sec): ICA/CCA RATIO: Right: 0.7 Left: 1.0 ICA: Right: 33.4 Left: 42.6 CCA: Right: 45.3 Left: 43.9 ECA: Right: 34.8 Left: 37.5 VERTEBRAL: Right: 21.8 antegrade Left: 19.7 antegrade Elevated flow velocities and ICA/CCA ratios have been found to correlate with increased degrees of vessel stenosis, calculated as percentage of diameter relative to a normal segment of distal ICA/CCA FINDINGS: RIGHT CAROTID: No significant stenosis is visualized. The waveforms are within normal limits. LEFT CAROTID: No significant stenosis is visualized. The waveforms are within normal limits. VERTEBRAL ARTERIES: Antegrade flow is seen in both vertebral arteries. MISCELLANEOUS: None. CONCLUSION: Negative for hemodynamically significant stenosis. Silvio Bernstein MD FACR on December 31, 2016 at 17:50 Board Certified Radiologist. This report was verified electronically.
--- NOTE | 2016-12-31 17:53 | RADRPT ---
EXAM DATE/TIME: 12/31/2016 16:54 [facility] COMPARISON: No previous studies available for comparison. INDICATIONS : Preop cardiac surgery. MEDICAL HISTORY : Congestive heart failure. Dyspnea. SURGICAL HISTORY : Tonsillectomy. Orthopedic surgery, neck and back. Cardiac cath. ENCOUNTER: Initial ACUITY: 1 day PAIN SCORE: 0/10 LOCATION: Bilateral leg. TECHNIQUE: Venous ultrasound of the left and right leg was performed from the inguinal ligament to the proximal calf. Real-time, color Doppler and spectral tracing, compression and augmentation techniques were us ed. FINDINGS: RIGHT LEG: There is normal compressibility of the deep venous system from the inguinal region to the proximal ca lf. No echogenic clot is seen in the lumen of the common femoral, femoral, popliteal, and posterior tibial veins. There is a normal response of the venous system to proximal and distal augmentation an d respiration. LEFT LEG: There is normal compressibility of the deep venous system from the inguinal region to the proximal ca lf. No echogenic clot is seen in the lumen of the common femoral, femoral, popliteal, and posterior tibial veins. There is a normal response of the venous system to proximal and distal augmentation an d respiration. CONCLUSION: Negative for deep venous thrombosis. . Silvio Bernstein MD FACR on December 31, 2016 at 17:51 Board Certified Radiologist. This report was verified electronically.
--- NOTE | 2016-12-31 17:59 | RADRPT ---
EXAM DATE/TIME: 12/31/2016 17:14 [facility] COMPARISON: No previous studies available for comparison. INDICATIONS : Preop cardiac surgery. MEDICAL HISTORY : Congestive heart failure. Dyspnea. SURGICAL HISTORY : Tonsillectomy. Orthopedic surgery, neck and back. Cardiac cath. ENCOUNTER: Initial ACUITY: 1 day PAIN SCORE: 0/10 LOCATION: Bilateral leg. GREATER SAPHENOUS VEIN THIGH: PROXIMAL: Right 6 mm Left 5 mm MID: Right 2 mm Left 2 mm DISTAL: Right Non-visualized Left Non-visualized CALF: PROXIMAL: Right Non-visualized Left Non-visualized MID: Right Non-visualized Left Non-visualized DISTAL: Right Non-visualized Left Non-visualized FINDINGS: The venous system of the lower extremities are patent by color Doppler imaging. Measurements of the leg veins (in mm) are listed above. CONCLUSION: Venous mapping as described above. Silvio Bernstein MD FACR on December 31, 2016 at 17:57 Board Certified Radiologist. This report was verified electronically.
--- NOTE | 2016-12-31 18:01 | MB ---
cc: TRUPTI GLEZ DATE OF CONSULTATION: 12/31/2016 REASON FOR CONSULTATION: DATE OF : 1955 HISTORY OF PRESENT ILLNESS: The patient is a 61-year-old male admitted on the 29 of december. The patient presented to the emergency room for several day history of dyspnea on exertion and shortness of breath per the son who is a chief business development officer. He says his father has been short of breath for a few months. Apparently two months ago he was at a local store and had a questionable seizure episode. A bystander said it was more like a generalized tonic clonic, fell on his head, had a laceration on the back of his head, had 21 rosalba. They also said he bit his tongue but he did not have any urinary or bowel incontinence. There was no focal weakness or numbness of the extremities. No prior history of illicit drug use. He drinks alcohol once in a while. He denied having any history of DTs in the past and no prior history of seizures. They did a CT at that time in September which showed some maxillary sinus air fluid levels. No evidence of skull fracture. No midline shift, mass lesions, hemorrhage or acute infarct. The patient was discharged home. On this admission he was found to have a BMP of 1500. Troponin mildly elevated at 0.06, 0.05. Chest x-ray showed some pulmonary edema. CTA ruled out for PE was negative. It did show some bilateral pleural effusion, small, some mild basilar atelectasis. He has been treated with some IV Lasix. He is currently on room air. We were consulted after the patient underwent cardiac catheterization which showed left main disease at 20%, mid distal LAD 80%, the RCA was 80%. His echocardiogram showed an EF of 25 to 30%, some mildly dilated left ventricle, global left ventricular dysfunction, some mild mitral regurgitation, possible bicuspid aortic valve with severe aortic valve stenosis, peak gradient of 71, mean gradient of 45 with aortic valve area 0.5, some trace aortic insufficiency. Again, we were consulted to evaluate for aortic valve replacement and coronary artery bypass grafting x2. PAST SURGICAL HISTORY, PAST MEDICAL HISTORY: Very limited. He has not seen a doctor in many years. 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 He was hit from a truck. He was still on a harness, he ended up having plates and screws to his cervical area five or six years ago, and also surgery on his lower back. Tonsillectomy. ALLERGIES: NONE KNOWN. HOME MEDICATIONS: None. FAMILY HISTORY: Mother still alive at 83, father of complications of multiple sclerosis in his 60s. SOCIAL HISTORY: No tobacco, rare alcohol, , two children, is on disability because of his back. REVIEW OF SYSTEMS: GENERAL: No night sweats, fever, heat and cold intolerance. SKIN: No psoriasis, itching or hives. HEENT: No blurred vision, hearing loss. RESPIRATORY: Positive for shortness of breath. CARDIOVASCULAR: As above in the HPI. GASTROINTESTINAL: No diarrhea or vomiting. GENITOURINARY: No burning, frequency, urgency. ORDERLIES TEACHER: No history of TIA, CVA, seizure disorder. ENDOCRINE: No history of diabetes and/or hypothyroidism. PHYSICAL EXAMINATION: VITAL SIGNS: Blood pressure 110/80, heart rate 87, afebrile. GENERAL: The patient is awake, alert, no acute distress. HEAD: Normocephalic, atraumatic. Pupils equal and reactive. Oral mucosa, pink, moist. NECK: Supple. No JVD. HEART: Heart sounds, S1-S2. Regular rate and rhythm. He has a 2 to 3/6 systolic murmur best heard at the left sternal border. LUNGS: Clear to auscultation, no rales, rhonchi or wheezing. ABDOMEN: Soft, nontender, no masses or organomegaly. EXTREMITIES: No clubbing, cyanosis or edema. LABORATORY DATA: Hemoglobin 13, hematocrit 41, white cell count is 6.8, platelet count 284. Sodium 136, potassium 3.6, BUN 24, creatinine 1.20, negative drug screen. Micro: Unremarkable. IMAGING STUDIES: As above. IMPRESSION This is a patient with symptomatic aortic stenosis, valve area 0.5, possibly bicuspid, also two-vessel disease including the mid distal LAD and the RCA. Cardiac films will be evaluated by Dr. Trupti Glez. Procedures, alternatives and risks will be discussed with the patient. The STS data will be discussed and documented in the electronic record. PLAN: The plan will be for aortic valve replacement with a tissue valve, coronary artery bypass grafting x2 to the LAD and the RCA. Further planning and testing pending. Planning will possibly be on Thursday. Dictated by: SYLVESTER Prince Trupti MD ATTILA Wilcox/SYLVIE /3:46 PM /5:29 PM
[2016-12-31] MEDS ORDERED: SODIUM CHLORIDE 0.9% FLUSH 10 ML FLUSH IV FLUSH SCH (21:00)
[2016-12-31] MEDS: DOCUSATE SODIUM 50 MG/SENNA 8.6 MG TAB PO SCH (21:01)
[2016-12-31] MEDS: ZOLPIDEM TARTRATE 5 MG TAB PO PRN (21:01)
--- NOTE | 2016-12-31 22:25 | MB ---
cc: KINDRA PALMER DO DATE OF CONSULTATION: 12/31/2016 REASON FOR CONSULTATION: Shortness of breath, heart failure, aortic stenosis. HISTORY OF PRESENT ILLNESS Aryan Ackerman is a pleasant 61-year-old male who presented to [facility] on December 29, 2016 due to shortness of breath. 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 He has even started getting shortness of breath while at rest. He felt that the shortness of breath was most likely due to the outside heat so he put it off for the past few weeks but since then it has gotten worse. He denies any chest pain. Lastly he states that around a month ago he was in a store and started walking towards the front and had an episode where he synopized. While in [facility], he was noted to have an echocardiogram which showed severe aortic stenosis and because of this, I asked that he be transferred to the main campus for further workup for his aortic stenosis. In seeing him, he is currently without chest pain or shortness of breath. PAST MEDICAL HISTORY Denies. PAST SURGICAL HISTORY Neck and back surgery from an accident. ALLERGIES NO KNOWN DRUG ALLERGIES. MEDICATIONS Denies. SOCIAL HISTORY Denies tobacco or alcohol. Lives at home with his . 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 FAMILY HISTORY: Mother and sister are living and healthy. Father is . REVIEW OF SYSTEMS: 14-systems were reviewed including osteopathic pertinent positives and negatives above otherwise negative. PHYSICAL EXAMINATION Vital signs: Temperature 97.4, heart rate 89, blood pressure 107/81, respirations 16, pulse ox 97% on room air. GENERAL: In general the patient appears well in no acute distress, alert, awake and oriented x3. Extraocular muscles intact. Mucous membranes moist. Neck: Supple. No JVD at 45 degrees. No carotid bruits heard bilaterally. Carotid upstroke is brisk in nature. Heart: Heart is regular rate and rhythm. Positive first and second heart sound with a 3/6 crescendo-decrescendo murmur which is late peaking to the right sternal border. Lungs: Lungs have decreased breath sounds at bilateral bases but no overt wheezes, rubs or rhonchi. Abdomen: Soft, non-tender, non-distended. No organomegaly noted. Extremities: No clubbing, cyanosis or edema. Femoral and distal pulses intact bilaterally. Neurologic: No focal deficits. Skin: Warm, dry and intact. Osteopathic: No kyphoscoliosis, lordosis or paraspinal tender points. LABORATORY FINDINGS Hemoglobin 13.5, hematocrit 41.5, platelets 284. Potassium 3.6, BUN 24, creatinine 1.2, troponin 0.06. Electrocardiogram (December 29, 2016 at 05:23) sinus rhythm, left atrial enlargement, nonspecific ST-T wave changes. IMPRESSION 1. Acute systolic heart failure upon presentation. 2. Episode of syncope around a month ago. 3. Ejection fraction of 25-30%, mild mitral regurgitation, severe aortic valve stenosis (peak 71, mean 45, aortic valve area 0.5) possible bicuspid aortic valve, although difficult to determine from the study. RECOMMENDATIONS 1. Mr. Ackerman presented with congestive heart failure and this is most likely due to his cardiomyopathy s well as severe aortic stenosis. 2. I have recommended that he undergo right and left heart catheterization in anticipation of possible open heart surgery for AVR. 3. Risks, benefits and alternatives were explained to him and he consents as such. 4. Further recommendations will be made after coronary visualization. Thank you for allowing me to see Aryan Ackerman. If there are any questions, please do not hesitate to call. Kindra Palmer DO VGP/SYLVIE /5:44 PM /10:00 PM
[2017-01-01] VITALS (25 sets, daily range): BP systolic 90–107; BP diastolic 63–80; PULSE 71–99; RESP 16–18; TEMP 97.3–98; O2SAT 97–98
[2017-01-01 05:47] LABS: BASOPHIL % 0.6 % (0.0-2.0); EOSINOPHIL # 0.1 TH/MM3 (0-0.4); EOSINOPHIL % 0.9 % (0.0-4.0); HEMATOCRIT 44.1 % (39.0-51.0); HEMO FLAGS DIFF FINAL; LYMPH % 21.8 % (9.0-44.0); LYMPHOCYTE # 1.6 TH/MM3 (1.0-4.8); MEAN CELL VOLUME 86.9 FL (80.0-100.0); MEAN CORPUSCULAR HEMOGLOBIN 29.8 PG (27.0-34.0); MEAN CORPUSCULAR HGB CONC 34.3 % (32.0-36.0); MONO % 7.5 % (0.0-8.0); NEUT % 69.2 % (16.0-70.0); PLATELET COUNT 278 TH/MM3 (150-450); RED BLOOD COUNT 5.08 MIL/MM3 (4.50-5.90); RED CELL DISTRIBUTION WIDTH 14.5 % (11.6-17.2); WHITE BLOOD COUNT 7.2 TH/MM3 (4.0-11.0)
[2017-01-01 05:53] LABS: PROTHROMBIN TIME - PATIENT 11.1 SEC (9.8-11.6)
--- NOTE | 2017-01-01 05:53 | MA ---
cc: AL PALMER DO DATE OF PROCEDURE December 31, 2016 PROCEDURE Coronary angiogram, right heart catheterization, IVUS left main. PREPROCEDURE DIAGNOSIS Severe for possible surgery, acute systolic heart failure. POSTPROCEDURE DIAGNOSES 1. Severe aortic stenosis, coronary artery disease. 2. Elevated left-sided filling pressures, moderate pulmonary hypertension (type 2 secondary to elevated left-sided filling pressures). MEDICATIONS 1. Fentanyl 50 mcg. 2. Heparin 6300 units. CONTRAST USED 100 cc. FLUOROSCOPY 11.8 minutes MODERATE SEDATION 0 minutes. ESTIMATED BLOOD LOSS 10 cc. PROCEDURAL SUMMARY Aryan Ackerman is a pleasant 61-year-old male who presented to [facility] with acute systolic heart failure. He was found to have an ejection fraction of 25-30% and severe aortic stenosis by echocardiogram. Because of this he was recommended right and left heart catheterization. The risks, benefits and alternatives were explained to him he consented as such. He was brought to lab and prepped in the usual sterile fashion. The right femoral artery was accessed using a modified Seldinger technique and placement of a 5-Romansh sheath. The right femoral vein was then accessed using a modified Seldinger technique and placement of a 7-Romansh sheath. Both were easily aspirated and flushed. The [place]-Gilberto catheter was taken up to a wedge position and on pullback oxygen saturations and pressures were done in a standard fashion. [place]-Gilberto catheter was then removed. A JR-4 catheter was advanced over a J-wire to the ascending aorta. Due to the patient having known severe aortic stenosis, it was not felt prudent to cross the aortic valve. I attempted to use the JR-4 for angiography of the right coronary artery but was unable to find the ostium. The JR-4 was exchanged out for a JL-4 which was used for selective angiography of the left coronary artery. The JL-4 was then exchanged out for an AL-1 which was used for angiography of the right coronary artery. As there was a question in one view of possible left main disease versus the angle of takeoff, I felt that it was prudent to further investigate this as it would change his possible surgery. The patient was given heparin as an additional anticoagulant. An EBU 3.5 guide catheter was then engaged into the left main. A Prowater wire was then advanced into the LAD. IVUS catheter was then advanced and the guide was pulled back out of the left main. IVUS catheter was pulled back during recording and then removed. The [place] wire was removed. Final angiography shows no disruption of the coronary artery system. Review of the IVUS recordings of the left main showed no significant stenosis and this is most likely a superior takeoff of the left main. Sheaths were sutured in place and will be removed once ACT is appropriate with pressure held for hemostasis. 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 FINDINGS LEFT MAIN: Has a superior takeoff with no significant disease. Overall a large vessel. It trifurcates into an LAD, ramus and circumflex. LAD: Normal-sized vessel with no significant disease in the proximal portion. At the transition from the proximal to midportion there is a long tubular 80% lesion. Otherwise the LAD has good runoff distally. It gives off one small diagonal with no significant disease. RAMUS: Normal-size vessel with no significant disease. CIRCUMFLEX: Large vessel with 20% disease in the midportion. It gives off two major obtuse marginals with no significant disease. RCA: High anterior takeoff with an 80% lesion in the midportion. Overall it is a dominant vessel with no significant disease distally. HEMODYNAMICS RA 8. RV 43/7. RVEDP 10. PA 55/37. Mean PA 44. Wedge 32. Cardiac output 5.0. Cardiac index 2.5. IMPRESSIONS 1. Severe aortic stenosis by echocardiogram. 2. Acute systolic heart failure with an ejection fraction of 35%. 3. Coronary artery disease as above. 4. Elevated left-sided filling pressures. 5. Moderate pulmonary hypertension (type 2 secondary to elevated left-sided filling pressures). RECOMMENDATIONS 1. Mr. Ackerman presented with acute systolic heart failure and was found to have severe aortic stenosis with coronary artery disease. Because of this he will be recommended consideration of AVR with CABG. 2. Case was discussed with Dr. Glasgow who will see him in consult. 3. He was previously on an JAMES inhibitor and this will be stopped in anticipation of surgery. 4. He still has elevated left-sided filling pressures and we will attempt to try to diurese him as possible, although he appears relatively compensated from a clinical standpoint. 5. Further recommendations after cardiothoracic surgery evaluation. Thank you for allowing me to see Aryan Ackerman. If there area any questions, please do not hesitate to call. Al HASKINS/DAVID /10:32 PM /5:27 AM
[2017-01-01 06:06] LABS: ALT (GPT) 45 U/L (12-78); ANION GAP 9 MEQ/L (5-15); AST (GOT) 26 U/L (15-37); BICARBONATE 25.4 MEQ/L (21.0-32.0); BLOOD UREA NITROGEN 25 MG/DL (7-18); CHLORIDE 102 MEQ/L (98-107); GLOMERULAR FILTRATION RATE 67 ML/MIN (>89); MAGNESIUM 2.1 MG/DL (1.5-2.5); POTASSIUM 3.6 MEQ/L (3.5-5.1); SODIUM (NA) 136 MEQ/L (136-145)
[2017-01-01 06:14] LABS: ALKALINE PHOSPHATASE 100 U/L (45-117); FREE T4 0.92 NG/DL (0.76-1.46); LDL CHOLESTEROL 111 MG/DL (0-99); TOTAL BILIRUBIN ADULT 0.8 MG/DL (0.2-1.0)
[2017-01-01] MEDS: ASPIRIN 81 MG CHEW TAB CHEW SCH (08:46)
[2017-01-01] MEDS: DOCUSATE SODIUM 50 MG/SENNA 8.6 MG TAB PO SCH ×2 (08:46→20:00)
[2017-01-01] MEDS: PANTOPRAZOLE SOD 40 MG DELAYED RELEASE TAB PO SCH (08:46)
[2017-01-01] MEDS: SODIUM CHLORIDE 0.9% FLUSH 10 ML FLUSH IV FLUSH SCH ×2 (08:49→20:01)
[2017-01-01] MEDS ORDERED: FUROSEMIDE 20 MG/2 ML VIAL IV PUSH SCH (09:00)
--- NOTE | 2017-01-01 10:23 | PD.PN.STU ---
Subjective Remarks CC: difficulty breathing 61y M came in the ER reported experiencing shortness of breath for the past week. 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 Pt. believes that the difficulty breathing may be attributed to the outside heat but reports maintaining adequate hydration while working. Report improvement of symptoms at rest initially. Last episode of difficulty breathing occurred on 12/28/16 at home while watching TV. Denies experiencing similar symptoms in the past. Denies MACKAY, chest pain, dizziness, syncope, upper and lower extremity swelling, cough, fever and chills. 01/01- reports feeling well and has no complaints. Denies experiencing headache , chest pain, lightheadedness, or recurrence of SOB, but reports that he has not been exerting himself. Objective Vitals Vital Signs Date Time Temp Pulse Resp B/P (MAP) Pulse Ox O2 Delivery O2 Flow Rate FiO2 01/01/17 10:01 21 01/01/17 10:00 72 01/01/17 09:00 87 01/01/17 08:00 86 01/01/17 07:00 97.6 91 16 107/80 (89) 97 01/01/17 07:00 91 01/01/17 06:11 81 01/01/17 05:06 86 01/01/17 04:11 71 01/01/17 03:42 77 01/01/17 03:42 98.0 77 16 107/78 (88) 98 01/01/17 02:14 96 01/01/17 01:19 82 01/01/17 00:08 88 12/31/16 23:23 97.8 93 17 103/75 (84) 98 12/31/16 23:00 94 12/31/16 22:20 90 12/31/16 21:00 88 12/31/16 20:10 92 12/31/16 19:30 98.6 101 18 98/63 (75) 100 12/31/16 19:30 94 12/31/16 19:29 98 21 12/31/16 18:14 96 12/31/16 17:00 94 12/31/16 16:00 93 12/31/16 15:15 97.7 89 16 90/69 (76) 99 12/31/16 15:00 96 12/31/16 14:00 87 12/31/16 13:00 92 12/31/16 12:00 91 12/31/16 11:30 97.1 72 16 111/80 (90) 98 12/31/16 11:15 97.1 72 16 111/80 (90) 98 12/31/16 11:00 81 I/O 12/31/16 12/31/16 12/31/16 01/01/17 01/01/17 01/01/17 07:00 15:00 23:00 07:00 15:00 23:00 Intake Total 180 ml 720 ml 240 ml Output Total 200 ml 900 ml 700 ml Balance -20 ml -180 ml -460 ml Intake Oral 180 ml 720 ml 240 ml Output Urine Total 200 ml 900 ml 700 ml # Voids 2 Result Diagram: 01/01/17 0436 01/01/17 0436 Other Results Laboratory Tests Test 12/29/16 12:15 12/30/16 06:17 12/31/16 01:30 12/31/16 12:05 Blood Urea Nitrogen 24 MG/DL (7-18) Estimat Glomerular Filtration Rate 62 ML/MIN (>89) Test 12/31/16 16:50 12/31/16 16:55 01/01/17 04:36 Blood Urea Nitrogen 25 MG/DL (7-18) Estimat Glomerular Filtration Rate 67 ML/MIN (>89) LDL Cholesterol 111 MG/DL (0-99) Imaging Last Impressions Lower Extremity Ultrasound 12/31/16 0000 Signed Impressions: Service Date/Time: Saturday, December 31, 2016 17:14 - CONCLUSION: Venous mapping as described above. Silvio Bernstein MD FACR Carotid Artery Ultrasound 12/31/16 0000 Signed Impressions: Service Date/Time: Saturday, December 31, 2016 16:28 - CONCLUSION: Negative for hemodynamically significant stenosis. Silvio Bernstein MD FACR Chest X-Ray 12/30/16 0600 Signed Impressions: Service Date/Time: Friday, December 30, 2016 10:08 - CONCLUSION: Diffuse interstitial prominence associated with small bilateral effusions and fluid in interlobar fissures. This characteristic of either mild congestion or acute interstitial pneumonitis. Ricardo Chase MD CT Angiography 12/29/16 0559 Signed Impressions: Service Date/Time: Thursday, December 29, 2016 06:24 - CONCLUSION: Bilateral pleural effusions. Mild basilar atelectasis. No evidence of pulmonary embolism. Mirza Russ MD Objective Remarks GENERAL: very pleasant, WDWN male who was in NAD SKIN: Warm and dry. HEAD: Atraumatic. Normocephalic. EYES: JOEY, EOMI. No scleral icterus. No injection or drainage. ENT: No nasal bleeding or discharge. Mucous membranes pink and moist. NECK: Trachea midline. No JVD. CARDIOVASCULAR: Regular rate and rhythm. S1 and S2 heard, no murmurs, gallops, rubs. RESPIRATORY: No accessory muscle use. Clear to auscultation. Breath sounds equal bilaterally. GASTROINTESTINAL: Abdomen soft, non-tender, nondistended. Hepatic and splenic margins not palpable. MUSCULOSKELETAL: Extremities without clubbing, cyanosis, or edema. No obvious deformities. NEUROLOGICAL: Awake and alert. No obvious cranial nerve deficits. Motor grossly within normal limits. Five out of 5 muscle strength in the arms and legs. Normal speech. PSYCHIATRIC: Appropriate mood and affect; insight and judgment normal. A/P Assessment and Plan 1. SOB- improved. cardiology following up at [facility]. 2. Mildly elevated troponin- normalized. likely secondary to demand ischemia vs chf 3. Mild hypocalcemia- normalized 4. Severe aortic stenosis- reviewed echo, following up with cardiology. CABGx2 scheduled for Tuesday 01/02 Discharge Planning Seen and examined. [facility] at [facility] PL[facility] FOR SURGERY TOMORROW AlfredoChetane M3 Jan 01, 2017 10:23 Elidia Cheng MD Jan 01, 2017 15:08
--- NOTE | 2017-01-01 10:24 | HHI.PR ---
Subjective Remarks In bed, says he feel fairly well, wants to do the surgery tomorrow has family suppoer. Also patient and family would like to talk with surgical team. Patient appears in nad. He denies having any sob, lightheadedness, chest pain. No diaphoresis, nausea. No n/v/d/c. Objective Vitals Vital Signs Date Time Temp Pulse Resp B/P (MAP) Pulse Ox O2 Delivery O2 Flow Rate FiO2 01/01/17 10:01 21 01/01/17 10:00 72 01/01/17 09:00 87 01/01/17 08:00 86 01/01/17 07:00 97.6 91 16 107/80 (89) 97 01/01/17 07:00 91 01/01/17 06:11 81 01/01/17 05:06 86 01/01/17 04:11 71 01/01/17 03:42 77 01/01/17 03:42 98.0 77 16 107/78 (88) 98 01/01/17 02:14 96 01/01/17 01:19 82 01/01/17 00:08 88 12/31/16 23:23 97.8 93 17 103/75 (84) 98 12/31/16 23:00 94 12/31/16 22:20 90 12/31/16 21:00 88 12/31/16 20:10 92 12/31/16 19:30 98.6 101 18 98/63 (75) 100 12/31/16 19:30 94 12/31/16 19:29 98 21 12/31/16 18:14 96 12/31/16 17:00 94 12/31/16 16:00 93 12/31/16 15:15 97.7 89 16 90/69 (76) 99 12/31/16 15:00 96 12/31/16 14:00 87 12/31/16 13:00 92 12/31/16 12:00 91 12/31/16 11:30 97.1 72 16 111/80 (90) 98 12/31/16 11:15 97.1 72 16 111/80 (90) 98 12/31/16 11:00 81 I/O 12/31/16 12/31/16 12/31/16 01/01/17 01/01/17 01/01/17 07:00 15:00 23:00 07:00 15:00 23:00 Intake Total 180 ml 720 ml 240 ml Output Total 200 ml 900 ml 700 ml Balance -20 ml -180 ml -460 ml Intake Oral 180 ml 720 ml 240 ml Output Urine Total 200 ml 900 ml 700 ml # Voids 2 Result Diagram: 01/01/17 0436 01/01/17 0436 Imaging Last Impressions Lower Extremity Ultrasound 12/31/16 0000 Signed Impressions: Service Date/Time: Saturday, December 31, 2016 17:14 - CONCLUSION: Venous mapping as described above. Silvio Bernstein MD FACR Carotid Artery Ultrasound 12/31/16 0000 Signed Impressions: Service Date/Time: Saturday, December 31, 2016 16:28 - CONCLUSION: Negative for hemodynamically significant stenosis. Silvio Bernstein MD FACR Chest X-Ray 12/30/16 0600 Signed Impressions: Service Date/Time: Friday, December 30, 2016 10:08 - CONCLUSION: Diffuse interstitial prominence associated with small bilateral effusions and fluid in interlobar fissures. This characteristic of either mild congestion or acute interstitial pneumonitis. Ricardo Chase MD CT Angiography 12/29/16 0559 Signed Impressions: Service Date/Time: Thursday, December 29, 2016 06:24 - CONCLUSION: Bilateral pleural effusions. Mild basilar atelectasis. No evidence of pulmonary embolism. Mirza Russ MD Objective Remarks GENERAL: Awake alert and oriented talkative and cooperative SKIN: Warm and dry. Multiple tattoos CARDIOVASCULAR: Regular rate and rhythm. S1 and S2 no S3 or S4 no heave or thrill or rub or gallop RESPIRATORY: No accessory muscle use. Clear to auscultation. Breath sounds equal bilaterally. GASTROINTESTINAL: Abdomen soft, non-tender, nondistended. Hepatic and splenic margins not palpable. MUSCULOSKELETAL: Extremities without clubbing, cyanosis, or edema. No obvious deformities. Right groin sheath in place NEUROLOGICAL: Awake and alert. No obvious cranial nerve deficits. Motor grossly within normal limits. Five out of 5 muscle strength in the arms and legs. Normal speech. PSYCHIATRIC: Appropriate mood and affect; insight and judgment normal. Procedures Cardiac catheterization December [address] Higgins A/P Assessment and Plan SOB- improved. Echo results reviewed, consulted cardiology for severe aortic stenosis/chf, transfer patient to [facility] for poss aortic valve replacement surgery. Troponin and TSH wnl. Mildly elevated troponin- likely 2/2 demand ischemia, trops normalized Mild hypocalcemia- normalized Severe aortic stenosis with congestive heart failure S/p cardiac catheterization today with Dr. Higgins noted to have aortic valve issues and couple vessel coronary artery disease Seen by Dr Glez, plan for aortic valve replacement and CABG x2 on 01/02 Discussed with patient, nurse and family Discharge Planning Await surgery before discharge, plan for aortic valve replacement and CABG x2 on Thursday01/02/17 Elidia Cheng MD Jan 01, 2017 10:24
--- NOTE | 2017-01-01 10:28 | PD.CARD.PN ---
Subjective Subjective Remarks No events overnight No chest pain/SOB Objective Medications Current Medications Medications (Trade) Dose Ordered Sig/Elsa Route Start Time Stop Time Status Last Admin (Protonix) 40 mg DAILY PO 12/29/16 11:30 01/01/17 08:46 (Benadryl) 50 mg HS PRN PO 12/29/16 17:30 (Atropine Inj) 0.5 mg UNSCH PRN IV PUSH 12/31/16 09:45 (Aspirin Chew) 81 mg DAILY CHEW 01/01/17 09:00 01/01/17 08:46 (Tylenol) 650 mg Q4H PRN PO 12/31/16 13:30 (Zofran Inj) 4 mg Q6H PRN IVP 12/31/16 13:30 (Compazine Supp) 25 mg Q12H PRN RECTAL 12/31/16 13:30 (Ambien) 5 mg HS PRN PO 12/31/16 13:30 12/31/16 21:01 (Tylenol) 650 mg Q6H PRN PO 12/31/16 13:30 (Percocet 5-325 Mg) 1 tab Q6H PRN PO 12/31/16 13:30 (Percocet 10-325 Mg) 1 tab Q6H PRN PO 12/31/16 13:30 (Morphine Inj) 2 mg Q3H PRN IV PUSH 12/31/16 13:30 (Morphine Inj) 4 mg Q3H PRN IV PUSH 12/31/16 13:30 (Narcan Inj) 0.4 mg UNSCH PRN IV PUSH 12/31/16 13:30 (Gaviota-Colace) 1 tab BID PO 12/31/16 21:00 01/01/17 08:46 (Milk Of Magnesia Liq) 30 ml Q12H PRN PO 12/31/16 13:30 (Senokot) 17.2 mg Q12H PRN PO 12/31/16 13:30 (Dulcolax Supp) 10 mg DAILY PRN RECTAL 12/31/16 13:30 (Lactulose Liq) 30 ml DAILY PRN PO 12/31/16 13:30 (Lasix Inj) 20 mg DAILY IV PUSH 01/01/17 09:00 01/01/17 08:46 (NS Flush) 2 ml BID IV FLUSH 12/31/16 21:00 01/01/17 08:49 (NS Flush) 2 ml UNSCH PRN IV FLUSH 12/31/16 15:45 Papaverine HCl 60 mg/Nitroglycerin 100 mcg/Diltiazem HCl 100 mg/Sodium Chloride 100 ml @ 0 mls/hr [employer] 12/31/16 15:45 01/07/17 15:44 Cefazolin Sodium 500 mg/Sodium Chloride 505 ml @ 0 mls/hr [employer] 12/31/16 15:45 01/07/17 15:44 Cefazolin Sodium/ Dextrose 50 ml @ 150 mls/hr [employer] IV 12/31/16 15:45 01/07/17 15:44 (Lopressor) 12.5 mg [employer] PO 12/31/16 15:45 01/07/17 15:44 (Hibiclens 4% Top Soln) 1 applic [employer] TOPICAL 12/31/16 15:45 01/07/17 15:44 Insulin Human Regular 100 units/ Sodium Chloride 100 ml @ 3 mls/hr TITRATE PRN IV 12/31/16 15:45 01/07/17 15:44 Vital Signs / I&O Vital Signs Date Time Temp Pulse Resp B/P (MAP) Pulse Ox O2 Delivery O2 Flow Rate FiO2 01/01/17 10:01 21 01/01/17 10:00 72 01/01/17 09:00 87 01/01/17 08:00 86 01/01/17 07:00 97.6 91 16 107/80 (89) 97 01/01/17 07:00 91 01/01/17 06:11 81 01/01/17 05:06 86 01/01/17 04:11 71 01/01/17 03:42 77 01/01/17 03:42 98.0 77 16 107/78 (88) 98 01/01/17 02:14 96 01/01/17 01:19 82 01/01/17 00:08 88 12/31/16 23:23 97.8 93 17 103/75 (84) 98 12/31/16 23:00 94 12/31/16 22:20 90 12/31/16 21:00 88 12/31/16 20:10 92 12/31/16 19:30 98.6 101 18 98/63 (75) 100 12/31/16 19:30 94 12/31/16 19:29 98 21 12/31/16 18:14 96 12/31/16 17:00 94 12/31/16 16:00 93 12/31/16 15:15 97.7 89 16 90/69 (76) 99 12/31/16 15:00 96 12/31/16 14:00 87 12/31/16 13:00 92 12/31/16 12:00 91 12/31/16 11:30 97.1 72 16 111/80 (90) 98 12/31/16 11:15 97.1 72 16 111/80 (90) 98 12/31/16 11:00 81 I/O 12/31/16 12/31/16 12/31/16 01/01/17 01/01/17 01/01/17 07:00 15:00 23:00 07:00 15:00 23:00 Intake Total 180 ml 720 ml 240 ml Output Total 200 ml 900 ml 700 ml Balance -20 ml -180 ml -460 ml Intake Oral 180 ml 720 ml 240 ml Output Urine Total 200 ml 900 ml 700 ml # Voids 2 Physical Exam GENERAL: NAD, AAOx3 SKIN: Warm and dry. HEAD: Atraumatic. Normocephalic. EYES: Pupils equal and round. No scleral icterus. No injection or drainage. ENT: No nasal bleeding or discharge. Mucous membranes pink and moist. NECK: Trachea midline. No JVD. CARDIOVASCULAR: Regular rate and rhythm. 3/6 crescendo-decrescendo to the RSB RESPIRATORY: No accessory muscle use. Clear to auscultation. Breath sounds equal bilaterally. GASTROINTESTINAL: Abdomen soft, non-tender, nondistended. Hepatic and splenic margins not palpable. MUSCULOSKELETAL: Extremities without clubbing, cyanosis, or edema. No obvious deformities. NEUROLOGICAL: Awake and alert. No obvious cranial nerve deficits. Motor grossly within normal limits. Five out of 5 muscle strength in the arms and legs. Normal speech. PSYCHIATRIC: Appropriate mood and affect; insight and judgment normal. Laboratory Laboratory Tests Test 12/31/16 12:05 12/31/16 16:50 12/31/16 16:55 01/01/17 04:36 Hemoglobin A1c 5.8 % Nasal Screen MRSA (PCR) MRSA NOT DETECTED Urine Color LIGHT-YELLOW Urine Turbidity CLEAR Urine pH 7.0 Urine Specific [place] 1.013 Urine Protein NEG mg/dL Urine Glucose (UA) NEG mg/dL Urine Ketones NEG mg/dL Urine Occult Blood NEG Urine Nitrite NEG Urine Bilirubin NEG Urine Urobilinogen LESS THAN 2.0 MG/DL Urine Leukocyte Esterase NEG Urine Squamous Epithelial Cells <1 /hpf Urine Hyaline Casts 1 /lpf Microscopic Urinalysis Comment CULT NOT INDICATED White Blood Count 7.2 TH/MM3 Red Blood Count 5.08 MIL/MM3 Hemoglobin 15.1 GM/DL Hematocrit 44.1 % Mean Corpuscular Volume 86.9 FL Mean Corpuscular Hemoglobin 29.8 PG Mean Corpuscular Hemoglobin Concent 34.3 % Red Cell Distribution Width 14.5 % Platelet Count 278 TH/MM3 Mean Platelet Volume 7.5 FL Neutrophils (%) (Auto) 69.2 % Lymphocytes (%) (Auto) 21.8 % Monocytes (%) (Auto) 7.5 % Eosinophils (%) (Auto) 0.9 % Basophils (%) (Auto) 0.6 % Neutrophils # (Auto) 5.0 TH/MM3 Lymphocytes # (Auto) 1.6 TH/MM3 Monocytes # (Auto) 0.5 TH/MM3 Eosinophils # (Auto) 0.1 TH/MM3 Basophils # (Auto) 0.0 TH/MM3 CBC Comment DIFF FINAL Differential Comment Prothrombin Time 11.1 SEC Prothromb Time International Ratio 1.0 RATIO Blood Urea Nitrogen 25 MG/DL Creatinine 1.12 MG/DL Random Glucose 90 MG/DL Total Protein 7.3 GM/DL Albumin 3.4 GM/DL Calcium Level 8.7 MG/DL Phosphorus Level 3.0 MG/DL Magnesium Level 2.1 MG/DL Alkaline Phosphatase 100 U/L Aspartate Amino Transf (AST/SGOT) 26 U/L Alanine Aminotransferase (ALT/SGPT) 45 U/L Total Bilirubin 0.8 MG/DL Sodium Level 136 MEQ/L Potassium Level 3.6 MEQ/L Chloride Level 102 MEQ/L Carbon Dioxide Level 25.4 MEQ/L Anion Gap 9 MEQ/L Estimat Glomerular Filtration Rate 67 ML/MIN Triglycerides Level 142 MG/DL Cholesterol Level 191 MG/DL LDL Cholesterol 111 MG/DL HDL Cholesterol 52.0 MG/DL Cholesterol/HDL Ratio 3.67 RATIO Free Thyroxine 0.92 NG/DL Thyroid Stimulating Hormone 3rd Gen 1.570 uIU/ML Assessment and Plan Problem List: (1) Aortic stenosis, severe ICD Codes: I35.0 - Nonrheumatic aortic (valve) stenosis (2) CAD (coronary artery disease) ICD Codes: I25.10 - Atherosclerotic heart disease of [place] coronary artery without angina pectoris (3) Pulmonary edema ICD Codes: J81.1 - Chronic pulmonary edema Status: Acute Assessment and Plan 1) Severe (mean 45, PARTH 0.5) with CAD Plan for AVR/CABG tomorrow with Dr. Glez Discussed with patient and family, answered all questions 2) Pulmonary edema Lungs sound clear, appears well compensated 3) Lisinopril on hold for CT surgery Al Payne DO Jan 01, 2017 10:28
--- NOTE | 2017-01-01 15:23 | PD.CAR.PN ---
CVT Progress Note Subjective/Hospital Course: 61-year-old male, presented to the emergency room for several day history of dyspnea on exertion, and shortness of breath per the son who is a parole director. He says his father has been short of breath for a few months. Apparently two months ago he was at a local store and had a questionable seizure episode. A bystander said it was more like a generalized tonic clonic, fell on his head, had a laceration on the back of his head, had 21 rosalba. They also said he bit his tongue but he did not have any urinary or bowel incontinence. There was no focal weakness or numbness of the extremities. No prior history of illicit drug use. They did a CT at that time in September which showed some maxillary sinus air fluid levels. No evidence of skull fracture. No midline shift, mass lesions, hemorrhage or acute infarct. Pt underwent underwent cardiac catheterization which showed left main disease at 20%, mid distal LAD 80 %, the RCA was 80%. echocardiogram showed an EF of 25 to 30%, some mildly dilated left ventricle, global left ventricular dysfunction, some mild mitral regurgitation, possible bicuspid aortic valve with severe aortic valve stenosis, peak gradient of 71, mean gradient of 45 with aortic valve area 0.5, some trace aortic insufficiency. were consulted to evaluate for aortic valve replacement and coronary artery bypass grafting x2. PMH: no MD follow up in many years, disabled 2/2 prior work accident with back injury and surgery C spine and lower back 01/01 pt denies having any chest pain pt on ASA, statin no BB 2/2 labile BP plan is fvery AVR tissue valve and CABG x 2 in am Objective: GENERAL: SKIN: Warm and dry. HEAD: Normocephalic. EYES: No scleral icterus. No injection or drainage. NECK: Supple, trachea midline. No JVD or lymphadenopathy. CARDIOVASCULAR: Regular rate and rhythm 3/6 sm murmurs, gallops, or rubs. RESPIRATORY: Breath sounds equal bilaterally. No accessory muscle use. GASTROINTESTINAL: Abdomen soft, non-tender, nondistended. MUSCULOSKELETAL: No cyanosis, or edema. BACK: Nontender without obvious deformity. No CVA tenderness. Vital Signs Date Time Temp Pulse Resp B/P (MAP) Pulse Ox O2 Delivery O2 Flow Rate FiO2 01/01/17 14:00 87 01/01/17 13:00 99 01/01/17 12:00 92 01/01/17 11:00 89 01/01/17 11:00 97.3 89 16 90/64 (73) 98 01/01/17 10:01 21 01/01/17 10:00 72 01/01/17 09:00 87 01/01/17 08:00 86 01/01/17 07:00 97.6 91 16 107/80 (89) 97 01/01/17 07:00 91 01/01/17 06:11 81 01/01/17 05:06 86 01/01/17 04:11 71 01/01/17 03:42 77 01/01/17 03:42 98.0 77 16 107/78 (88) 98 01/01/17 02:14 96 01/01/17 01:19 82 01/01/17 00:08 88 12/31/16 23:23 97.8 93 17 103/75 (84) 98 12/31/16 23:00 94 12/31/16 22:20 90 12/31/16 21:00 88 12/31/16 20:10 92 12/31/16 19:30 98.6 101 18 98/63 (75) 100 12/31/16 19:30 94 12/31/16 19:29 98 21 12/31/16 18:14 96 12/31/16 17:00 94 12/31/16 16:00 93 12/31/16 15:15 97.7 89 16 90/69 (76) 99 Labs: Laboratory Tests Test 01/01/17 04:36 White Blood Count 7.2 TH/MM3 (4.0-11.0) Red Blood Count 5.08 MIL/MM3 (4.50-5.90) Hemoglobin 15.1 GM/DL (13.0-17.0) Hematocrit 44.1 % (39.0-51.0) Mean Corpuscular Volume 86.9 FL (80.0-100.0) Mean Corpuscular Hemoglobin 29.8 PG (27.0-34.0) Mean Corpuscular Hemoglobin Concent 34.3 % (32.0-36.0) Red Cell Distribution Width 14.5 % (11.6-17.2) Platelet Count 278 TH/MM3 (150-450) Mean Platelet Volume 7.5 FL (7.0-11.0) Neutrophils (%) (Auto) 69.2 % (16.0-70.0) Lymphocytes (%) (Auto) 21.8 % (9.0-44.0) Monocytes (%) (Auto) 7.5 % (0.0-8.0) Eosinophils (%) (Auto) 0.9 % (0.0-4.0) Basophils (%) (Auto) 0.6 % (0.0-2.0) Neutrophils # (Auto) 5.0 TH/MM3 (1.8-7.7) Lymphocytes # (Auto) 1.6 TH/MM3 (1.0-4.8) Monocytes # (Auto) 0.5 TH/MM3 (0-0.9) Eosinophils # (Auto) 0.1 TH/MM3 (0-0.4) Basophils # (Auto) 0.0 TH/MM3 (0-0.2) CBC Comment DIFF FINAL Differential Comment Prothrombin Time 11.1 SEC (9.8-11.6) Prothromb Time International Ratio 1.0 RATIO Blood Urea Nitrogen 25 MG/DL (7-18) Creatinine 1.12 MG/DL (0.60-1.30) Random Glucose 90 MG/DL (74-106) Total Protein 7.3 GM/DL (6.4-8.2) Albumin 3.4 GM/DL (3.4-5.0) Calcium Level 8.7 MG/DL (8.5-10.1) Phosphorus Level 3.0 MG/DL (2.5-4.9) Magnesium Level 2.1 MG/DL (1.5-2.5) Alkaline Phosphatase 100 U/L (45-117) Aspartate Amino Transf (AST/SGOT) 26 U/L (15-37) Alanine Aminotransferase (ALT/SGPT) 45 U/L (12-78) Total Bilirubin 0.8 MG/DL (0.2-1.0) Sodium Level 136 MEQ/L (136-145) Potassium Level 3.6 MEQ/L (3.5-5.1) Chloride Level 102 MEQ/L (98-107) Carbon Dioxide Level 25.4 MEQ/L (21.0-32.0) Anion Gap 9 MEQ/L (5-15) Estimat Glomerular Filtration Rate 67 ML/MIN (>89) Triglycerides Level 142 MG/DL (42-150) Cholesterol Level 191 MG/DL (120-200) LDL Cholesterol 111 MG/DL (0-99) HDL Cholesterol 52.0 MG/DL (40.0-60.0) Cholesterol/HDL Ratio 3.67 RATIO Free Thyroxine 0.92 NG/DL (0.76-1.46) Thyroid Stimulating Hormone 3rd Gen 1.570 uIU/ML (0.358-3.740) Result Diagram: 01/01/17 0436 01/01/17 0436 (1) Aortic stenosis, severe (2) CAD (coronary artery disease) Plan: statin , ASA for OR in am carotid US ok US lower ext , no DVT fair targets in upper legs , poor in lower ext (3) Pulmonary edema Lilia Vega Jan 01, 2017 15:23
[2017-01-01 16:12] LABS: HEMOGLOBIN A1a 1.1 %; HEMOGLOBIN A1b 0.9 %; HEMOGLOBIN F 0.9 %; HEMOGLOBIN P3 5.2 %
[2017-01-01] MEDS: ATORVASTATIN 40 MG TAB PO SCH (20:01)
[2017-01-01] MEDS: ZOLPIDEM TARTRATE 5 MG TAB PO PRN (20:56)
[2017-01-02] VITALS (21 sets, daily range): BP systolic 75–108; BP diastolic 39–77; PULSE 69–92; RESP 10–18; TEMP 96.7–98.6; O2SAT 86–97
[2017-01-02] MEDS ORDERED: POVIDONE IODINE 5% (ANTISEPSIS KIT) 4 APPLICATIONS EACH NARE PRN (04:00)
[2017-01-02] MEDS ORDERED: LACTATED RINGER'S 1000 ML IV PRN (04:00)
[2017-01-02] MEDS ORDERED: SODIUM CHLORID 0.9% 500 ML IV PRN (04:00)
[2017-01-02] MEDS ORDERED: INSULIN HUMAN REGULAR 1,000 UNITS/10 ML VIAL SQ PRN (04:00)
[2017-01-02] MEDS ORDERED: CHLORHEXIDINE GLUCONATE 2 % 1 PACK (2 CLOTHS) TOPICAL PRN (04:00)
[2017-01-02] MEDS ORDERED: HEPARIN SODIUM - SQ 10,000 UNITS/ML VIAL ONE (07:11)
[2017-01-02] MEDS ORDERED: methylPREDNISolone SOD SUCC 125 MG/2 ML VIAL ONE (07:11)
[2017-01-02] MEDS ORDERED: ceFAZolin 2 GM PREMIX 50 ML ONE (07:11)
[2017-01-02] MEDS ORDERED: VANCOMYCIN HCL 1000 MG VIAL ONE ×2 (07:11→08:08)
[2017-01-02] MEDS ORDERED: CUSTODIOL HTK IRR SOLN 3,000 ML ONE (07:57)
[2017-01-02] MEDS ORDERED: HEPARIN SODIUM - IV 10,000 UNITS/10 ML VIAL ONE (07:57)
[2017-01-02] MEDS ORDERED: ALBUMIN 25% INJ 50 ML IV ONE (07:58)
[2017-01-02] MEDS ORDERED: MANNITOL INJ 100 ML ONE (07:58)
[2017-01-02] MEDS ORDERED: ePHEDrine/NS 25 MG/5 ML SYR ONE (08:10)
[2017-01-02] MEDS ORDERED: PHENYLEPH/NS 1000 MCG/10 ML SYR ONE (08:10)
--- NOTE | 2017-01-02 08:48 | HHI.PR ---
Subjective Remarks In bed, appears in nad. He is not moving much. No chest pain, sob, lightheadedness. No n/v/d/c. No diaphoresis. Feels good, ready for surgery. Objective Vitals Vital Signs Date Time Temp Pulse Resp B/P (MAP) Pulse Ox O2 Delivery O2 Flow Rate FiO2 01/02/17 08:00 76 01/02/17 07:00 97.8 76 16 97/74 (82) 97 01/02/17 07:00 76 01/02/17 06:00 71 01/02/17 05:00 88 01/02/17 04:00 87 01/02/17 03:20 97.6 92 16 99/77 (84) 96 01/02/17 03:00 80 01/02/17 02:00 81 01/02/17 01:00 90 01/02/17 00:00 92 01/01/17 23:10 97.7 88 18 101/75 (84) 97 01/01/17 23:00 77 01/01/17 22:00 85 01/01/17 21:00 94 01/01/17 20:00 97.9 86 18 91/65 (74) 97 01/01/17 20:00 90 01/01/17 19:00 85 01/01/17 18:00 98 01/01/17 17:00 90 01/01/17 16:00 73 01/01/17 15:00 83 01/01/17 15:00 98.0 83 16 90/63 (72) 98 01/01/17 14:00 87 01/01/17 13:00 99 01/01/17 12:00 92 01/01/17 11:00 89 01/01/17 11:00 97.3 89 16 90/64 (73) 98 01/01/17 10:01 21 01/01/17 10:00 72 01/01/17 09:00 87 I/O 01/01/17 01/01/17 01/01/17 01/02/17 01/02/17 01/02/17 07:00 15:00 23:00 07:00 15:00 23:00 Intake Total 240 ml 780 ml 240 ml Output Total 700 ml 950 ml 200 ml Balance -460 ml -170 ml 40 ml Intake Oral 240 ml 780 ml 240 ml IV Total 0 ml Output Urine Total 700 ml 950 ml 200 ml Stool Total 0 ml # Voids 2 2 # Bowel Movements 1 0 Result Diagram: 01/01/17 0436 01/01/17 0436 Imaging Last Impressions Lower Extremity Ultrasound 12/31/16 0000 Signed Impressions: Service Date/Time: Saturday, December 31, 2016 17:14 - CONCLUSION: Venous mapping as described above. Silvio Bernstein MD FACR Carotid Artery Ultrasound 12/31/16 0000 Signed Impressions: Service Date/Time: Saturday, December 31, 2016 16:28 - CONCLUSION: Negative for hemodynamically significant stenosis. Silvio Bernstein MD FACR Chest X-Ray 12/30/16 0600 Signed Impressions: Service Date/Time: Friday, December 30, 2016 10:08 - CONCLUSION: Diffuse interstitial prominence associated with small bilateral effusions and fluid in interlobar fissures. This characteristic of either mild congestion or acute interstitial pneumonitis. Ricardo Chase MD CT Angiography 12/29/16 0559 Signed Impressions: Service Date/Time: Thursday, December 29, 2016 06:24 - CONCLUSION: Bilateral pleural effusions. Mild basilar atelectasis. No evidence of pulmonary embolism. Mirza Russ MD Objective Remarks GENERAL: Awake alert and oriented talkative and cooperative SKIN: Warm and dry. Multiple tattoos CARDIOVASCULAR: Regular rate and rhythm. S1 and S2 no S3 or S4 no heave or thrill or rub or gallop RESPIRATORY: No accessory muscle use. Clear to auscultation. Breath sounds equal bilaterally. GASTROINTESTINAL: Abdomen soft, non-tender, nondistended. Hepatic and splenic margins not palpable. MUSCULOSKELETAL: Extremities without clubbing, cyanosis, or edema. No obvious deformities. Right groin sheath in place NEUROLOGICAL: Awake and alert. No obvious cranial nerve deficits. Motor grossly within normal limits. Five out of 5 muscle strength in the arms and legs. Normal speech. PSYCHIATRIC: Appropriate mood and affect; insight and judgment normal. Procedures Cardiac catheterization December [address] Higgins A/P Assessment and Plan SOB- improved. Echo results reviewed, consulted cardiology for severe aortic stenosis/chf, transfer patient to [facility] for poss aortic valve replacement surgery. Troponin and TSH wnl. Mildly elevated troponin- likely 2/2 demand ischemia, trops normalized Mild hypocalcemia- normalized Severe aortic stenosis with congestive heart failure S/p cardiac catheterization today with Dr. Higgins noted to have aortic valve issues and couple vessel coronary artery disease Seen by Dr Glez, CTS plan for aortic valve replacement and CABG x2 on Discussed with patient, nurse Discharge Planning Await surgery before discharge, plan for aortic valve replacement and CABG x2 on Thursday01/02/17 Elidia Cheng MD Jan 02, 2017 08:48
[2017-01-02] MEDS ORDERED: SODIUM CHLORIDE 0.9% INJ 100 ML IV ONE ×2 (08:50→12:00)
[2017-01-02] MEDS ORDERED: SODIUM CHLOR 0.9% 1000 ML INJ 1,000 ML IV ONE ×2 (08:50→12:00)
[2017-01-02] MEDS ORDERED: SODIUM CHLOR 0.9% 250 ML INJ 250 ML IV ONE ×2 (08:50→12:00)
[2017-01-02] MEDS ORDERED: LACTATED RINGER'S 1000 ML INJ 1,000 ML IV ONE ×2 (08:50→12:00)
[2017-01-02] MEDS ORDERED: fentaNYL CITRATE 1000 MCG/20 ML VIAL IV ONE (08:52)
[2017-01-02] MEDS ORDERED: MIDAZOLAM HCL 2 MG/2 ML VIAL IV ONE (08:52)
[2017-01-02] MEDS: SODIUM CHLORIDE 0.9% FLUSH 10 ML FLUSH IV FLUSH SCH ×2 (09:00→21:00)
[2017-01-02] MEDS: DOCUSATE SODIUM 50 MG/SENNA 8.6 MG TAB PO SCH ×2 (09:00→21:47)
[2017-01-02] MEDS: PANTOPRAZOLE SOD 40 MG DELAYED RELEASE TAB PO SCH (09:00)
[2017-01-02] MEDS: ASPIRIN 81 MG CHEW TAB CHEW SCH (09:00)
--- NOTE | 2017-01-02 09:06 | PD.PN.STU ---
Subjective Remarks 61y M came in the ER reported experiencing shortness of breath for the past week. 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 Pt. believes that the difficulty breathing may be attributed to the outside heat but reports maintaining adequate hydration while working. Report improvement of symptoms at rest initially. Last episode of difficulty breathing occurred on 12/28/16 at home while watching TV. Denies experiencing similar symptoms in the past. Denies MACKAY, chest pain, dizziness, syncope, upper and lower extremity swelling, cough, fever and chills. 01/01- reports feeling well and has no complaints. Denies experiencing headache , chest pain, lightheadedness, or recurrence of SOB, but reports that he has not been exerting himself. 01/02- reports feeling well and has no complaints. Scheduled to receive surgery this AM. Denies SOB, MACKAY, CP. Objective Vitals Vital Signs Date Time Temp Pulse Resp B/P (MAP) Pulse Ox O2 Delivery O2 Flow Rate FiO2 01/02/17 08:00 76 01/02/17 07:00 97.8 76 16 97/74 (82) 97 01/02/17 07:00 76 01/02/17 06:00 71 01/02/17 05:00 88 01/02/17 04:00 87 01/02/17 03:20 97.6 92 16 99/77 (84) 96 01/02/17 03:00 80 01/02/17 02:00 81 01/02/17 01:00 90 01/02/17 00:00 92 01/01/17 23:10 97.7 88 18 101/75 (84) 97 01/01/17 23:00 77 01/01/17 22:00 85 01/01/17 21:00 94 01/01/17 20:00 97.9 86 18 91/65 (74) 97 01/01/17 20:00 90 01/01/17 19:00 85 01/01/17 18:00 98 01/01/17 17:00 90 01/01/17 16:00 73 01/01/17 15:00 83 01/01/17 15:00 98.0 83 16 90/63 (72) 98 01/01/17 14:00 87 01/01/17 13:00 99 01/01/17 12:00 92 01/01/17 11:00 89 01/01/17 11:00 97.3 89 16 90/64 (73) 98 01/01/17 10:01 21 01/01/17 10:00 72 I/O 01/01/17 01/01/17 01/01/17 01/02/17 01/02/17 01/02/17 07:00 15:00 23:00 07:00 15:00 23:00 Intake Total 240 ml 780 ml 240 ml Output Total 700 ml 950 ml 200 ml Balance -460 ml -170 ml 40 ml Intake Oral 240 ml 780 ml 240 ml IV Total 0 ml Output Urine Total 700 ml 950 ml 200 ml Stool Total 0 ml # Voids 2 2 # Bowel Movements 1 0 Result Diagram: 01/01/17 0436 01/01/17 0436 Other Results Last Impressions Lower Extremity Ultrasound 12/31/16 0000 Signed Impressions: Service Date/Time: Saturday, December 31, 2016 17:14 - CONCLUSION: Venous mapping as described above. Silvio Bernstein MD FACR Carotid Artery Ultrasound 12/31/16 0000 Signed Impressions: Service Date/Time: Saturday, December 31, 2016 16:28 - CONCLUSION: Negative for hemodynamically significant stenosis. Silvio Bernstein MD FACR Chest X-Ray 12/30/16 0600 Signed Impressions: Service Date/Time: Friday, December 30, 2016 10:08 - CONCLUSION: Diffuse interstitial prominence associated with small bilateral effusions and fluid in interlobar fissures. This characteristic of either mild congestion or acute interstitial pneumonitis. Ricardo Chase MD CT Angiography 12/29/16 0559 Signed Impressions: Service Date/Time: Thursday, December 29, 2016 06:24 - CONCLUSION: Bilateral pleural effusions. Mild basilar atelectasis. No evidence of pulmonary embolism. Mirza Russ MD Objective Remarks GENERAL: very pleasant, WDWN male who was in NAD SKIN: Warm and dry. HEAD: Atraumatic. Normocephalic. EYES: Pupils equal and round. EOMI. No scleral icterus. No injection or drainage. ENT: No nasal bleeding or discharge. Mucous membranes pink and moist. NECK: Trachea midline. No JVD. CARDIOVASCULAR: Regular rate and rhythm. S1 and S2 heard. systolic murmur appreciated in the 2nd Rt intercostal space, no gallops or rubs RESPIRATORY: No accessory muscle use. Clear to auscultation. Breath sounds equal bilaterally. GASTROINTESTINAL: Abdomen soft, non-tender, nondistended. Hepatic and splenic margins not palpable. MUSCULOSKELETAL: Able to move all extremities with no difficulty, without clubbing, cyanosis, or edema. No obvious deformities. NEUROLOGICAL: Awake and alert. No obvious cranial nerve deficits. Motor grossly within normal limits. Five out of 5 muscle strength in the arms and legs. Normal speech. PSYCHIATRIC: Appropriate mood and affect; insight and judgment normal. A/P Assessment and Plan 1. SOB- improved. CABGx2 and AVR replacement to be performed this AM 2. Mildly elevated troponin- normalized. likely secondary to demand ischemia vs chf 3. Mild hypocalcemia- normalized 4. Severe aortic stenosis- CABGx2 and AVR replacement to be performed this AM, follow up after surgery. 5. Elevated LDL- continue atorvastatin. Padmini Fuentes M3 Jan 02, 2017 09:06
--- NOTE | 2017-01-02 09:18 | PD.CARD.PN ---
Subjective Subjective Remarks No events overnight No chest pain/SOB For AVR/CABG today Objective Medications Current Medications Medications (Trade) Dose Ordered Sig/Elsa Route Start Time Stop Time Status Last Admin (Protonix) 40 mg DAILY PO 12/29/16 11:30 01/01/17 08:46 (Benadryl) 50 mg HS PRN PO 12/29/16 17:30 (Atropine Inj) 0.5 mg UNSCH PRN IV PUSH 12/31/16 09:45 (Aspirin Chew) 81 mg DAILY CHEW 01/01/17 09:00 01/01/17 08:46 (Tylenol) 650 mg Q4H PRN PO 12/31/16 13:30 (Zofran Inj) 4 mg Q6H PRN IVP 12/31/16 13:30 (Compazine Supp) 25 mg Q12H PRN RECTAL 12/31/16 13:30 (Ambien) 5 mg HS PRN PO 12/31/16 13:30 01/01/17 20:56 (Tylenol) 650 mg Q6H PRN PO 12/31/16 13:30 (Percocet 5-325 Mg) 1 tab Q6H PRN PO 12/31/16 13:30 (Percocet 10-325 Mg) 1 tab Q6H PRN PO 12/31/16 13:30 (Morphine Inj) 2 mg Q3H PRN IV PUSH 12/31/16 13:30 (Morphine Inj) 4 mg Q3H PRN IV PUSH 12/31/16 13:30 (Narcan Inj) 0.4 mg UNSCH PRN IV PUSH 12/31/16 13:30 (Gaviota-Colace) 1 tab BID PO 12/31/16 21:00 01/01/17 20:00 (Milk Of Magnesia Liq) 30 ml Q12H PRN PO 12/31/16 13:30 (Senokot) 17.2 mg Q12H PRN PO 12/31/16 13:30 (Dulcolax Supp) 10 mg DAILY PRN RECTAL 12/31/16 13:30 (Lactulose Liq) 30 ml DAILY PRN PO 12/31/16 13:30 (Lasix Inj) 20 mg DAILY IV PUSH 01/01/17 09:00 01/01/17 08:46 (NS Flush) 2 ml BID IV FLUSH 12/31/16 21:00 01/01/17 20:01 (NS Flush) 2 ml UNSCH PRN IV FLUSH 12/31/16 15:45 Papaverine HCl 60 mg/Nitroglycerin 100 mcg/Diltiazem HCl 100 mg/Sodium Chloride 100 ml @ 0 mls/hr ASSISTANT ACTIVITIES DIRECTOR IRRIGATION 12/31/16 15:45 01/07/17 15:44 Cefazolin Sodium 500 mg/Sodium Chloride 505 ml @ 0 mls/hr ASSISTANT ACTIVITIES DIRECTOR IRRIGATION 12/31/16 15:45 01/07/17 15:44 Cefazolin Sodium/ Dextrose 50 ml @ 150 mls/hr ASSISTANT ACTIVITIES DIRECTOR IV 12/31/16 15:45 01/07/17 15:44 (Lopressor) 12.5 mg ASSISTANT ACTIVITIES DIRECTOR PO 12/31/16 15:45 01/07/17 15:44 01/02/17 05:57 (Hibiclens 4% Top Soln) 1 applic ASSISTANT ACTIVITIES DIRECTOR TOPICAL 12/31/16 15:45 01/07/17 15:44 01/02/17 03:53 Insulin Human Regular 100 units/ Sodium Chloride 100 ml @ 3 mls/hr TITRATE PRN IV 12/31/16 15:45 01/07/17 15:44 (Lipitor) 40 mg HS PO 01/01/17 21:00 01/01/17 20:01 Lactated Ringer's 1,000 ml @ 30 mls/hr Q24H PRN IV 01/02/17 04:00 01/05/17 03:59 Sodium Chloride 500 ml @ 30 mls/hr [id number] PRN IV 01/02/17 04:00 01/05/17 03:59 (Betadine 5% Antisepsis Kit) 1 applic ASSISTANT ACTIVITIES DIRECTOR PRN EACH NARE 01/02/17 04:00 01/05/17 03:59 (Chlorhexidine 2% Cloth) 3 pack ASSISTANT ACTIVITIES DIRECTOR PRN TOPICAL 01/02/17 04:00 01/05/17 03:59 (NovoLIN R INJ) See Protocol Table ... ASSISTANT ACTIVITIES DIRECTOR PRN SQ 01/02/17 04:00 01/05/17 03:59 Vital Signs / I&O Vital Signs Date Time Temp Pulse Resp B/P (MAP) Pulse Ox O2 Delivery O2 Flow Rate FiO2 01/02/17 08:00 76 01/02/17 07:00 97.8 76 16 97/74 (82) 97 01/02/17 07:00 76 01/02/17 06:00 71 01/02/17 05:00 88 01/02/17 04:00 87 01/02/17 03:20 97.6 92 16 99/77 (84) 96 01/02/17 03:00 80 01/02/17 02:00 81 01/02/17 01:00 90 01/02/17 00:00 92 01/01/17 23:10 97.7 88 18 101/75 (84) 97 01/01/17 23:00 77 01/01/17 22:00 85 01/01/17 21:00 94 01/01/17 20:00 97.9 86 18 91/65 (74) 97 01/01/17 20:00 90 01/01/17 19:00 85 01/01/17 18:00 98 01/01/17 17:00 90 01/01/17 16:00 73 01/01/17 15:00 83 01/01/17 15:00 98.0 83 16 90/63 (72) 98 01/01/17 14:00 87 01/01/17 13:00 99 01/01/17 12:00 92 01/01/17 11:00 89 01/01/17 11:00 97.3 89 16 90/64 (73) 98 01/01/17 10:01 21 01/01/17 10:00 72 I/O 01/01/17 01/01/17 01/01/17 01/02/17 01/02/17 01/02/17 07:00 15:00 23:00 07:00 15:00 23:00 Intake Total 240 ml 780 ml 240 ml Output Total 700 ml 950 ml 200 ml Balance -460 ml -170 ml 40 ml Intake Oral 240 ml 780 ml 240 ml IV Total 0 ml Output Urine Total 700 ml 950 ml 200 ml Stool Total 0 ml # Voids 2 2 # Bowel Movements 1 0 Physical Exam GENERAL: NAD, AAOx3 SKIN: Warm and dry. HEAD: Atraumatic. Normocephalic. EYES: Pupils equal and round. No scleral icterus. No injection or drainage. ENT: No nasal bleeding or discharge. Mucous membranes pink and moist. NECK: Trachea midline. No JVD. CARDIOVASCULAR: Regular rate and rhythm. 3/6 crescendo-decrescendo to the RSB RESPIRATORY: No accessory muscle use. Clear to auscultation. Breath sounds equal bilaterally. GASTROINTESTINAL: Abdomen soft, non-tender, nondistended. Hepatic and splenic margins not palpable. MUSCULOSKELETAL: Extremities without clubbing, cyanosis, or edema. No obvious deformities. NEUROLOGICAL: Awake and alert. No obvious cranial nerve deficits. Motor grossly within normal limits. Five out of 5 muscle strength in the arms and legs. Normal speech. PSYCHIATRIC: Appropriate mood and affect; insight and judgment normal. Laboratory Laboratory Tests Test 12/31/16 01:30 12/31/16 12:05 12/31/16 16:50 12/31/16 16:55 Urine Opiates Screen NEG (NEG) Urine Barbiturates Screen NEG (NEG) Urine Amphetamines Screen NEG (NEG) Urine Benzodiazepines Screen NEG (NEG) Urine Cocaine Screen NEG (NEG) Urine Cannabinoids Screen NEG (NEG) Hemoglobin A1c 5.8 % (4.3-6.0) Nasal Screen MRSA (PCR) MRSA NOT DETECTED (NOT Urine Color LIGHT-YELLOW (YELLW/STRAW) Urine Turbidity CLEAR (CLEAR) Urine pH 7.0 (5.0-8.5) Urine Specific [place] 1.013 (1.002-1.035) Urine Protein NEG mg/dL (NEG-TRACE) Urine Glucose (UA) NEG mg/dL (NEG) Urine Ketones NEG mg/dL (NEG) Urine Occult Blood NEG (NEG) Urine Nitrite NEG (NEG) Urine Bilirubin NEG (NEG) Urine Urobilinogen LESS THAN 2.0 MG/DL (LESS Urine Leukocyte Esterase NEG (NEG) Urine Squamous Epithelial Cells <1 /hpf (0-5) Urine Hyaline Casts 1 /lpf (RARE) Microscopic Urinalysis Comment CULT NOT INDICATED Test 01/01/17 04:36 White Blood Count 7.2 TH/MM3 (4.0-11.0) Red Blood Count 5.08 MIL/MM3 (4.50-5.90) Hemoglobin 15.1 GM/DL (13.0-17.0) Hematocrit 44.1 % (39.0-51.0) Mean Corpuscular Volume 86.9 FL (80.0-100.0) Mean Corpuscular Hemoglobin 29.8 PG (27.0-34.0) Mean Corpuscular Hemoglobin Concent 34.3 % (32.0-36.0) Red Cell Distribution Width 14.5 % (11.6-17.2) Platelet Count 278 TH/MM3 (150-450) Mean Platelet Volume 7.5 FL (7.0-11.0) Neutrophils (%) (Auto) 69.2 % (16.0-70.0) Lymphocytes (%) (Auto) 21.8 % (9.0-44.0) Monocytes (%) (Auto) 7.5 % (0.0-8.0) Eosinophils (%) (Auto) 0.9 % (0.0-4.0) Basophils (%) (Auto) 0.6 % (0.0-2.0) Neutrophils # (Auto) 5.0 TH/MM3 (1.8-7.7) Lymphocytes # (Auto) 1.6 TH/MM3 (1.0-4.8) Monocytes # (Auto) 0.5 TH/MM3 (0-0.9) Eosinophils # (Auto) 0.1 TH/MM3 (0-0.4) Basophils # (Auto) 0.0 TH/MM3 (0-0.2) CBC Comment DIFF FINAL Differential Comment Prothrombin Time 11.1 SEC (9.8-11.6) Prothromb Time International Ratio 1.0 RATIO Blood Urea Nitrogen 25 MG/DL (7-18) Creatinine 1.12 MG/DL (0.60-1.30) Random Glucose 90 MG/DL (74-106) Total Protein 7.3 GM/DL (6.4-8.2) Albumin 3.4 GM/DL (3.4-5.0) Calcium Level 8.7 MG/DL (8.5-10.1) Phosphorus Level 3.0 MG/DL (2.5-4.9) Magnesium Level 2.1 MG/DL (1.5-2.5) Alkaline Phosphatase 100 U/L (45-117) Aspartate Amino Transf (AST/SGOT) 26 U/L (15-37) Alanine Aminotransferase (ALT/SGPT) 45 U/L (12-78) Total Bilirubin 0.8 MG/DL (0.2-1.0) Sodium Level 136 MEQ/L (136-145) Potassium Level 3.6 MEQ/L (3.5-5.1) Chloride Level 102 MEQ/L (98-107) Carbon Dioxide Level 25.4 MEQ/L (21.0-32.0) Anion Gap 9 MEQ/L (5-15) Estimat Glomerular Filtration Rate 67 ML/MIN (>89) Hemoglobin A1c 5.7 % (4.3-6.0) Triglycerides Level 142 MG/DL (42-150) Cholesterol Level 191 MG/DL (120-200) LDL Cholesterol 111 MG/DL (0-99) HDL Cholesterol 52.0 MG/DL (40.0-60.0) Cholesterol/HDL Ratio 3.67 RATIO Free Thyroxine 0.92 NG/DL (0.76-1.46) Thyroid Stimulating Hormone 3rd Gen 1.570 uIU/ML (0.358-3.740) Assessment and Plan Problem List: (1) Aortic stenosis, severe ICD Codes: I35.0 - Nonrheumatic aortic (valve) stenosis (2) CAD (coronary artery disease) ICD Codes: I25.10 - Atherosclerotic heart disease of [place] coronary artery without angina pectoris (3) Pulmonary edema ICD Codes: J81.1 - Chronic pulmonary edema Status: Acute Assessment and Plan 1) Severe (mean 45, PARTH 0.5) with CAD Plan for AVR/CABG today with Dr. Glez Discussed with patient and family, answered all questions 2) Pulmonary edema Lungs sound clear, appears well compensated 3) Lisinopril on hold for CT surgery 4) Will see post-CABG/AVR Al Payne DO Jan 02, 2017 09:18
--- NOTE | 2017-01-02 11:36 | RSPPFT ---
DATE OF PROCEDURE: 01/01/17 COMMENTS: Spirometry with FVC of 3.4 predicted 3.9, FEV1 of 2.8 predicted 3.1, FEV1/FVC ratio 82% predicted 80%. IMPRESSION: On the basis of the above, patient's spirometry is within the predicted range.
[2017-01-02] MEDS ORDERED: PHENYLEPH/NS 1000 MCG/10 ML SYR IV ONE (12:00)
[2017-01-02] MEDS ORDERED: PROTAMINE SULFATE 250 MG/25 ML VIAL IV ONE (12:00)
[2017-01-02] MEDS ORDERED: DOPamine INJ PREMIX 500 ML IV ONE (12:00)
[2017-01-02] MEDS ORDERED: GLYCOPYRROLATE 1 MG/5 ML SYRINGE IV PUSH ONE (12:00)
[2017-01-02] MEDS ORDERED: HEPARIN SODIUM - SQ 10,000 UNITS/ML VIAL SQ ONE (12:00)
[2017-01-02] MEDS ORDERED: EPINEPHrine HCL (1:1000) 30 MG/30 ML VIAL IV ONE (12:00)
[2017-01-02] MEDS ORDERED: AMINOCAPROIC ACID INJ 250 MG/ML 20 ML VIAL IV ONE (12:00)
[2017-01-02] MEDS ORDERED: VECURONIUM BROMIDE 10 MG VIAL IV ONE (12:00)
[2017-01-02] MEDS ORDERED: CALCIUM CHLORIDE 10% SOLN 1 GRAM/10 ML SYR IV ONE (12:00)
[2017-01-02] MEDS ORDERED: ARTIFICIAL TEARS OPTH OINT 3.5 APPLIC/3.5 GM TUBO EACH EYE ONE (12:00)
[2017-01-02] MEDS ORDERED: SODIUM BICARBONATE 8.4% INJ 50 MEQ/50 ML SYR IV ONE (12:00)
[2017-01-02] MEDS ORDERED: PHENYLEPHRINE HCL 10 MG/ML VIAL IV ONE (12:00)
[2017-01-02] MEDS ORDERED: MAGNESIUM SULFATE 1 GM/2 ML VIAL IV ONE (12:00)
--- NOTE | 2017-01-02 13:36 | HHI.FF ---
Face to Face Verification Diagnosis: (1) AVR/ CABG x 2 (2) CAD (coronary artery disease) (3) Aortic stenosis, severe Home Health Nursing Order: Signs/symptoms of disease process Medication education-adverse effect Wound care and dressing changes Nursing assessment with vital signs Instructions: Heart and Vascular Surgery patients *Special attention to sternal dressing Mandatory frequency Assess and evaluation, 4 days in a row The next week 3X week 2 times a week for 4 weeks 1 time a week for 5 weeks Schedule Heart and Vascular patients for full 60 day certification period Initial visit Review Open Heart Surgery Discharge Instructions (Sternal precautions, Activity, Elastic hose, Incision care, Driving, Incentive spirometry, Smoking, [place], Work and other) Need Betadine to paint incision Medication reconciliation Importance of follow up care/ check on appointments Make calendar record temperature daily When to call [facility] nurse, review instructions, phone list Incentive Spirometry, demonstration Visit 1- Begin discharge instruction for patient family and/ or caregiver using teach back method- Signs and symptoms of infection Disease characteristics Medicines and side effects Foods and nutrition/ appetite Infection control/ hand washing/ hygiene Visit 2- Continue teaching Discharge instructions- include additional information on smoking cessation , sternal dressing (sternal vac) Visit 3- Continue teaching- Cough and deep breathing, incision monitoring. Choose my plate Visit 4- Continue teaching- Discuss limitations Discuss how they are feeling Discuss progress toward goals Remaining visits- continue teaching and monitoring For any questions please call : Thursday 8am-5pm Heart & Vascular Surgery Office ( Dr. Glasgow & Dr. Glez), After Hours / Nights (5pm -8am) Weekends and Holidays Please call [facility] [address] Cardiac Intermediate Care Unit (CIC) Charge Nurse PREVENA Single Use Negative Wound Therapy System Caregiver Instruction Sheet 1. A Prevena dressing system was applied to the chest incision during surgery , to promote wound healing. It works via a suction device (negative pressure wound therapy) to remove low to moderate levels of exudate (drainage) and infectious materials. We recommend that the device stay in place for up to seven days, from day of surgery. 2. Day of Surgery___/ Day of Removal __01/09/17 3. The dressing should only be removed by a health adult care manager. Please arrange removal of device to coincide with Home Health visit and or with Nursing staff at Rehab 4. If skin reddening or irritation of skin occurs, or excessive drainage, please notify the Cardiovascular Surgeons office at [phone]. 5. Light showering is permissible; however the pump should be disconnected and placed in safe location, where it will not get wet. The dressing should not be exposed to direct spray or submerged in water. No bath tub / shower only. Ensure the end of the tubing attached to the dressing is facing down so that water does not enter the top of the tube. 6. To remove Prevena dressing: press purple button to turn off device / remove the suction. Then disconnect the tubing from the pump. The fixation strips should be stretched away from the skin and the dressing lifted at one corner and peeled back until it has been fully removed. 7. After removal, it is ok to shower daily using liquid dial soap and clean wash cloth, rinse and pat dry, and leave incision open to air dry. For any concerns regarding Prevena dressing, and or wounds, please contact Luisana Conner, patient navigator at [phone] or notify the Cardiovascular Surgeons office at [phone]. Incentive spirometry Q1 hr x 10, while awake, also use acapella device hourly whole awake Sternal Breast Bone Precautions: NO pushing or pulling, ( pt must use sternal pillow to support chest with all activities and with coughing ( takes up to 3 months breast bone to heal ) Daily incision care: ok to shower daily, no tub bath. Wash all incisions with liquid dial soap, clean wash cloth to each site, rinse and pat dry. Observe for any signs of infection, such as drainage which is dark yellow, key, green or foul smelling. Immediately report to the surgeon any drainage from the chest incision, or legs, and for any abnormal drainage from the chest tube sites. Notify surgeon if any temp >101.5 degrees F. When specialty dressing removed/ or if you do not have one, continue to shower daily as above, then rinse and pat incision dry and paint with betadine daily x 5 days. Allow steri strips to fall off if you have any. Avoid lotions, creams, salves, oils, etc. for the first month Please see attached forms for additional instructions regarding post Open Heart specialty wound vacuum dressings. BRITNEY or Prevena , Dressing to be removed by Nursing staff on __01/09/[address] Glez patients , please obtain CBC, BMP, PA & Lat CXR in 2 weeks, results to Dr. Glez ( prescription will be given) ( ) (Tele: [phone]) , Valve replacement pts will need 2decho in 2 weeks with results to Dr. Glez . Please obtain 2 d echo at your ritual circumciser office if possible F/U appointment: as per DC instructions: PCP in 2 weeks, CV surgeon 2 weeks, Pharmacy Technician Per Diem 3-4 weeks For any questions regarding incisions/ dressing / meds / post op care or above Symptoms, Thursday 8am-5pm Heart & Vascular Surgery Office ( Dr. Glasgow & Dr. Glez), After Hours / Nights (5pm -8am) Weekends and Holidays Please call [facility] [address] Cardiac Intermediate Care Unit (CIC) Charge Nurse I have seen patient Aryan Ackerman on 01/02/17. My clinical findings support the need for the requested home health care services because: Patient has SOB Deconditioned w/ increased weakness I certify that my clinical findings support that this patient is homebound because: Post-op weakness Lilia Vega Jan 02, 2017 13:36
[2017-01-02] MEDS ORDERED: DEXMEDETOMIDINE HCL 200 MCG/2 ML VIAL ONE (14:03)
[2017-01-02] MEDS ORDERED: ceFAZolin INJ 1,000 MG VIAL ONE (14:22)
[2017-01-02] MEDS ORDERED: POTASSIUM CHLOR 20 MEQ PREMIX 100 ML IV PRN ×3 (14:45)
[2017-01-02] MEDS ORDERED: CALCIUM CHLORIDE INJ 1 GM in SODIUM CHLORIDE 0.9% INJ 100 ML IV PRN (14:45)
[2017-01-02] MEDS ORDERED: RESP: ALBUTEROL 2.5 MG/IPRATROPIUM 0.5 MG NEB (PRN) NEB (14:45)
[2017-01-02] MEDS ORDERED: ALBUMIN 5% INJ 250 ML IV PRN (14:45)
[2017-01-02] MEDS ORDERED: Post-op Orders (for Pharmacy) MISC OTHER ONE (14:45)
[2017-01-02] MEDS ORDERED: ONDANSETRON HCL 4 MG/2 ML VIAL IV PUSH PRN (14:45)
[2017-01-02] MEDS ORDERED: DEXTROSE 50% IN WATER 50 ML VIAL(D50) IV PUSH PRN (14:45)
[2017-01-02] MEDS ORDERED: RESP: RACEPINEPHRINE 2.25% 0.5 ML NEB NEB PRN (14:45)
[2017-01-02] MEDS ORDERED: ACETAMINOPHEN 325 MG TAB PO PRN (14:45)
[2017-01-02] MEDS ORDERED: CALCIUM CHLORIDE 10% 1 GRAM/10 ML VIAL IV PUSH PRN (14:45)
[2017-01-02] MEDS ORDERED: KETOROLAC TROMETHAMINE 30 MG/ML (IVP) VIAL IV PUSH PRN (14:45)
[2017-01-02] MEDS ORDERED: DOPamine INJ PREMIX 500 ML IV PRN (14:45)
[2017-01-02] MEDS ORDERED: MAGNESIUM SULFATE INJ 2 GM in SODIUM CHLORIDE 0.9% INJ 100 ML IV PRN ×4 (14:45)
[2017-01-02] MEDS ORDERED: SODIUM BICARBONATE 8.4% SOLN 50 MEQ/50 ML VIAL IV PUSH PRN ×2 (14:45)
[2017-01-02] MEDS ORDERED: ACETAMINOPHEN 650 MG SUPP RECTAL PRN (14:45)
[2017-01-02] MEDS ORDERED: POTASSIUM CHLORIDE 20 MEQ CONTROLLED RELEASE TAB PO PRN ×2 (14:45)
[2017-01-02] MEDS ORDERED: hydrALAZINE HCL 20 MG/ML VIAL IV PUSH PRN (14:45)
[2017-01-02] MEDS ORDERED: METOPROLOL TARTRATE 5 MG/5 ML VIAL IV PUSH PRN (14:45)
--- NOTE | 2017-01-02 15:08 | PD.OP ---
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 Phillips Surgeon: Trupti Glez [employer] Radio Operator(s): VIRGILIO Berger Operation and Findings: After adequate general anesthesia, the patient was prepped and draped in the usual manner. A median sternotomy was performed and electrocautery was used to obtain hemostasis. Left internal mammary artery was procured as a pedicle from the 7th ribs to the 1st rib in the usual manner. Simultaneously, the left greater saphenous vein was procured using a minimally invasive technique. The vein was prepared for anastomosis and the leg wound was irrigated and closed in 2 layers. The pericardium was opened and the distal mammary artery was instrumented for anastomosis after adequate heparinization for cardiopulmonary bypass. The heart was instrumented for cardiopulmonary bypass in the usual manner. Antegrade Custodiol cardioplegia was used. The left ventricle was vented through the right superior pulmonary vein. The patient was placed on cardiopulmonary bypass and target vessels were identified. And aortic cross-clamp was applied and the heart was arrest is using cold Custodiol antegrade cardioplegia. After adequate arrest, the right coronary artery was opened with a [place] blade and found to be a 1.5 millimeter good target. The saphenous vein was approximated to the artery using a running 7-0 Prolene suture. The vein was measured for length and orientation and suspended from the pericardium.The distal LAD was then opened with a [place] blade and found to be a 1-1/2 millimeters good target. The left internal mammary artery was approximated to the LAD using a running 7 0 Prolene suture. The pedicle was tacked to the epicardium using interrupted 5 0 silk suture. The aorta was vented and opened above the sinotubular ridge. The valve was found to be heavily calcified and bicuspid. Aortic valve was excised sharply and the annulus was decalcified using rongeurs. The annulus was sized to a 25 Intuity bioprosthetic valve which was seated using 3 interrupted 2-0 Tycron sutures. After seating the valve and deploying the valve, the aorta was repaired in 2 layers using running 4-0 Prolene suture. The patient was placed in steep Trendelenburg position and received a hotshot doses of warm blood cardioplegia. The aorta was vented and the proximal anastomosis to the RCA graft was performed using a running 5-0 Prolene suture after creating an aortotomy with a 5 millimeter punch. The aorta and left ventricle were vented and the aortic cross-clamp was removed for a total cross-clamp time of 72 minutes. The heart resumed a bradycardic rhythm which eventually converted to a sinus rhythm after several minutes. The heart was filled allowed to eject. The aortic valve replacement was then assessed by intraoperative HERI. The valve was found to be well seated with no significant perivalvular leak. Left ventricular function was noted to be improved from 20% to ~40%. A left femoral arterial line was placed by Seldinger technique due to the radial arterial line being dampened. The patient was weaned from cardiopulmonary bypass for total bypass run of 107 minutes. Protamine was administered to reverse the heparin and all cannulae were removed without incident. A 36 Palestinian mediastinal/ 32 Palestinian left pleural chest tubes were positioned and each was secured to the skin with a 0 silk suture. The operative field was then examined again for hemostasis which was obtained using electrocautery. The wound was then closed in layers by approximating the sternal tables with interrupted number 6 stainless steel wires following which the presternal fashion was approximately around a 1. PDS suture. The wound was copiously irrigated. The subcutaneous tissue was approximated using a running 2-0 Vicryl suture and the skin was approximated with running 4-0 Monocryl subcuticular stitch. All sponge and instrument counts were correct at the close of the procedure and the patient was transported the CVICU in stable, but guarded condition. Trupti Glez M.D., F.A.C.C., F.A.C.S. Trupti Glez MD Jan 02, 2017 15:07
[2017-01-02] MEDS: PHENYLEPHRINE INJ 40 MG in DEXTROSE 5% IN WATE 500 ML INJ 496 ML IV PRN ×4 (15:43→18:47)
[2017-01-02] MEDS ORDERED: INSULIN REGULAR (IV INFUSION) 100 UNITS in SODIUM CHLORIDE 0.9% INJ 99 ML IV PRN (16:00)
[2017-01-02] MEDS ORDERED: CLEVIDIPINE INJ 50 ML IV PRN (16:00)
[2017-01-02] MEDS: ACETAMINOPHEN 1000 MG/100 ML 100 ML IV SCH ×2 (16:14→21:48)
[2017-01-02] MEDS: LACTATED RINGER'S 1000 ML INJ 500 ML IV PRN ×2 (16:17→17:37)
--- NOTE | 2017-01-02 16:46 | RADRPT ---
EXAM DATE/TIME: 01/02/2017 16:25 [facility] COMPARISON: CHEST SINGLE AP, December 29, 2016, 5:17. INDICATIONS : Stat post CABG. MEDICAL HISTORY : None. SURGICAL HISTORY : Tonsillectomy. Discectomy, cervical. ENCOUNTER: Initial ACUITY: 1 day PAIN SCORE: Non-responsive. LOCATION: Bilateral chest FINDINGS: ET tube, central line, mediastinal drain and left chest tube in good position. The heart is enlarged . The vascularity is normal. There is no pneumothorax. Sternal wires and bypass are evident. CONCLUSION: Support apparatus in good position. There is no congestive failure. Silvio Bernstein MD FACR on January 02, 2017 at 16:44 Board Certified Radiologist. This report was verified electronically.
[2017-01-02] MEDS ORDERED: DEXMEDETOMIDINE INJ 200 MCG in SODIUM CHLORIDE 0.9% INJ 50 ML IV PRN (17:30)
[2017-01-02] MEDS: RESP: ALBUTEROL 2.5 MG/IPRATROPIUM 0.5 MG NEB (SCH) NEB (21:19)
[2017-01-02] MEDS: AMIODARONE 200 MG TAB PO SCH (21:42)
[2017-01-02] MEDS: ATORVASTATIN 40 MG TAB PO SCH (21:42)
[2017-01-03] VITALS (9 sets, daily range): BP systolic 84–107; BP diastolic 54–65; PULSE 86–104; RESP 16–20; TEMP 97.3–98.3; O2SAT 92–98
[2017-01-03] MEDS: RESP: ALBUTEROL 2.5 MG/IPRATROPIUM 0.5 MG NEB (SCH) NEB ×4 (03:02→20:56)
[2017-01-03] MEDS: ACETAMINOPHEN 1000 MG/100 ML 100 ML IV SCH ×2 (03:32→08:48)
[2017-01-03] MEDS: oxyCODONE/ACETAMINOPHEN 10 MG/325 MG TAB PO PRN ×3 (03:33→21:57)
[2017-01-03 04:50] LABS: HEMATOCRIT 35.3 % (39.0-51.0); MEAN CELL VOLUME 86.4 FL (80.0-100.0); MEAN CORPUSCULAR HEMOGLOBIN 28.9 PG (27.0-34.0); MEAN CORPUSCULAR HGB CONC 33.4 % (32.0-36.0); PLATELET COUNT 177 TH/MM3 (150-450); RED BLOOD COUNT 4.09 MIL/MM3 (4.50-5.90); RED CELL DISTRIBUTION WIDTH 14.3 % (11.6-17.2); REVIEW FLAG FINAL; WHITE BLOOD COUNT 12.4 TH/MM3 (4.0-11.0)
[2017-01-03 05:31] LABS: BICARBONATE 22.8 MEQ/L (21.0-32.0); MAGNESIUM 2.3 MG/DL (1.5-2.5); POTASSIUM 3.9 MEQ/L (3.5-5.1)
--- NOTE | 2017-01-03 06:33 | RADRPT ---
EXAM DATE/TIME: 01/03/2017 04:49 [facility] COMPARISON: CHEST SINGLE AP, January 02, 2017, 16:25. INDICATIONS : Shortness of breath, possible pulmonary disease. MEDICAL HISTORY : None. SURGICAL HISTORY : Tonsillectomy. Discectomy, cervical. CABG. ENCOUNTER: Subsequent ACUITY: 2 days PAIN SCORE: 9/10 LOCATION: Bilateral chest FINDINGS: The patient is status post sternotomy. A mediastinal drain and left chest tube are well placed. A pne umothorax is not seen. There is a right internal jugular central vein catheter in place with tip over lying the SVC. The heart size is within normal limits. The lungs are grossly clear. There is an anter ior cervical fusion plate present. CONCLUSION: Remaining tubes and lines are in good position. Mirza Knight MD on January 03, 2017 at 6:31 Board Certified Radiologist. This report was verified electronically.
--- NOTE | 2017-01-03 08:01 | PD.PN.STU ---
Subjective Remarks POD1 s/p CABGx2 and AVR with Dr. Caballero. In bed, conversive but appeared tired. Reports experiencing chest pain from the surgery that he rates at a 7 on the pain scale, which was constant and tolerable throughout the night. He also reports muscle aches/soreness, mild chest tightness and Lt leg pain from where they performed the vein stripping. Denies SOB, MACKAY, lightheadedness, fever, chills, abdominal pain, urinary incontinence, and leg swelling. Objective Vitals Vital Signs Date Time Temp Pulse Resp B/P (MAP) Pulse Ox O2 Delivery O2 Flow Rate FiO2 01/03/17 03:31 86/44 01/03/17 03:18 99 01/03/17 03:12 94 Mechanical Ventilator 5.00 Nasal Cannula 01/03/17 03:12 97.3 98 16 103/63 (76) 94 101/54 (70) 01/02/17 23:10 94 Mechanical Ventilator 5.00 Nasal Cannula 01/02/17 23:10 96.9 90 18 105/68 (80) 94 108/60 (76) 01/02/17 23:00 90 01/02/17 21:21 97 Nasal Cannula 5.00 01/02/17 20:05 92 Nasal Cannula 5.00 01/02/17 19:30 98.6 69 13 89/63 (72) 96 102/55 (71) 01/02/17 19:30 40 01/02/17 19:30 96 Mechanical Ventilator 40 01/02/17 19:00 74 01/02/17 18:47 72 96/53 01/02/17 18:00 72 01/02/17 17:00 74 01/02/17 16:31 82 80/33 01/02/17 16:00 100 01/02/17 16:00 79 01/02/17 15:43 96.7 82 10 75/45 (55) 86 97/39 (58) 01/02/17 15:43 82 97/39 01/02/17 10:00 76 01/02/17 09:00 80 01/02/17 08:00 76 I/O 01/02/17 01/02/17 01/02/17 01/03/17 01/03/17 01/03/17 07:00 15:00 23:00 07:00 15:00 23:00 Intake Total 240 ml 4624 ml 290 ml Output Total 200 ml 2940 ml 1715 ml Balance 40 ml 1684 ml -1425 ml Intake Oral 240 ml 200 ml IV Total 674 ml 90 ml Autotransfusion 750 ml Other 3200 ml Output Urine Total 200 ml 1280 ml 1375 ml Gastric Drainage Total 0 ml Chest Tube Drainage Total 160 ml 340 ml Estimated Blood Loss 1500 ml # Voids 2 # Bowel Movements 0 0 0 Result Diagram: 01/03/17 0340 01/03/17 0340 Other Results Laboratory Tests Test 12/31/16 12:05 12/31/16 16:50 12/31/16 16:55 01/01/17 04:36 Blood Urea Nitrogen 25 MG/DL (7-18) Estimat Glomerular Filtration Rate 67 ML/MIN (>89) LDL Cholesterol 111 MG/DL (0-99) Test 01/03/17 03:40 White Blood Count 12.4 TH/MM3 (4.0-11.0) Red Blood Count 4.09 MIL/MM3 (4.50-5.90) Hemoglobin 11.8 GM/DL (13.0-17.0) Hematocrit 35.3 % (39.0-51.0) Blood Urea Nitrogen 26 MG/DL (7-18) Random Glucose 119 MG/DL (74-106) Calcium Level 7.7 MG/DL (8.5-10.1) Imaging Last Impressions Chest X-Ray 01/03/17 0500 Signed Impressions: Service Date/Time: Tuesday, January 03, 2017 04:49 - CONCLUSION: Remaining tubes and lines are in good position. Mirza Knight MD Lower Extremity Ultrasound 12/31/16 0000 Signed Impressions: Service Date/Time: Saturday, December 31, 2016 17:14 - CONCLUSION: Venous mapping as described above. Silvio Bernstein MD FACR Carotid Artery Ultrasound 12/31/16 0000 Signed Impressions: Service Date/Time: Saturday, December 31, 2016 16:28 - CONCLUSION: Negative for hemodynamically significant stenosis. Silvio Bernstein MD FACR CT Angiography 12/29/16 0559 Signed Impressions: Service Date/Time: Thursday, December 29, 2016 06:24 - CONCLUSION: Bilateral pleural effusions. Mild basilar atelectasis. No evidence of pulmonary embolism. Mirza Russ MD Objective Remarks GENERAL: very pleasant, WDWN, tired-appearing male who was in NAD SKIN: Warm and dry. HEAD: Atraumatic. Normocephalic. EYES: Pupils equal and round. EOMI. No scleral icterus. No injection or drainage. ENT: No nasal bleeding or discharge. Mucous membranes pink and moist. NECK: Trachea midline. No JVD. CARDIOVASCULAR: Dressing present over mediastinum s/p sternotomy. Regular rate and rhythm. S1 and S2 heard. RESPIRATORY: No accessory muscle use. Clear to auscultation. Breath sounds equal bilaterally. GASTROINTESTINAL: Abdomen soft, non-tender, nondistended. Hepatic and splenic margins not palpable. MUSCULOSKELETAL: Lt leg wrapped with an aiden bandage from the foot to the thigh. All other extremities without clubbing, cyanosis, or edema. No obvious deformities. NEUROLOGICAL: Awake and alert. No obvious cranial nerve deficits. Motor grossly within normal limits. Five out of 5 muscle strength in the arms and legs. Normal speech. PSYCHIATRIC: Appropriate mood and affect; insight and judgment normal. Medications and IVs Current Medications Medications (Trade) Dose Ordered Sig/Elsa Route Start Time Stop Time Status Last Admin (Protonix) 40 mg DAILY PO 12/29/16 11:30 01/01/17 08:46 (Benadryl) 50 mg HS PRN PO 12/29/16 17:30 (Atropine Inj) 0.5 mg UNSCH PRN IV PUSH 12/31/16 09:45 (Aspirin Chew) 81 mg DAILY CHEW 01/01/17 09:00 01/01/17 08:46 (Ambien) 5 mg HS PRN PO 12/31/16 13:30 01/01/17 20:56 (Tylenol) 650 mg Q6H PRN PO 12/31/16 13:30 (Percocet 5-325 Mg) 1 tab Q6H PRN PO 12/31/16 13:30 (Percocet 10-325 Mg) 1 tab Q6H PRN PO 12/31/16 13:30 01/03/17 03:33 (Narcan Inj) 0.4 mg UNSCH PRN IV PUSH 12/31/16 13:30 (Gaviota-Colace) 1 tab BID PO 12/31/16 21:00 01/02/17 21:47 (Milk Of Magnesia Liq) 30 ml Q12H PRN PO 12/31/16 13:30 (Senokot) 17.2 mg Q12H PRN PO 12/31/16 13:30 (Dulcolax Supp) 10 mg DAILY PRN RECTAL 12/31/16 13:30 (Lactulose Liq) 30 ml DAILY PRN PO 12/31/16 13:30 (NS Flush) 2 ml BID IV FLUSH 12/31/16 21:00 01/01/17 20:01 (NS Flush) 2 ml UNSCH PRN IV FLUSH 12/31/16 15:45 Papaverine HCl 60 mg/Nitroglycerin 100 mcg/Diltiazem HCl 100 mg/Sodium Chloride 100 ml @ 0 mls/hr GEODUCK DIVER IRRIGATION 12/31/16 15:45 01/07/17 15:44 Cefazolin Sodium 500 mg/Sodium Chloride 505 ml @ 0 mls/hr GEODUCK DIVER IRRIGATION 12/31/16 15:45 01/07/17 15:44 Cefazolin Sodium/ Dextrose 50 ml @ 150 mls/hr GEODUCK DIVER IV 12/31/16 15:45 01/07/17 15:44 (Lopressor) 12.5 mg GEODUCK DIVER PO 12/31/16 15:45 01/07/17 15:44 01/02/17 05:57 (Hibiclens 4% Top Soln) 1 applic GEODUCK DIVER TOPICAL 12/31/16 15:45 01/07/17 15:44 01/02/17 03:53 Insulin Human Regular 100 units/ Sodium Chloride 100 ml @ 3 mls/hr TITRATE PRN IV 12/31/16 15:45 01/07/17 15:44 (Lipitor) 40 mg HS PO 01/01/17 21:00 01/02/17 21:42 Lactated Ringer's 1,000 ml @ 30 mls/hr Q24H PRN IV 01/02/17 04:00 01/05/17 03:59 Sodium Chloride 500 ml @ 30 mls/hr [id number] PRN IV 01/02/17 04:00 01/05/17 03:59 (Betadine 5% Antisepsis Kit) 1 applic GEODUCK DIVER PRN EACH NARE 01/02/17 04:00 01/05/17 03:59 (Chlorhexidine 2% Cloth) 3 pack GEODUCK DIVER PRN TOPICAL 01/02/17 04:00 01/05/17 03:59 (NovoLIN R INJ) See Protocol Table ... GEODUCK DIVER PRN SQ 01/02/17 04:00 01/05/17 03:59 Dexmedetomidine HCl 200 mcg/ Sodium Chloride 52 ml @ 4.55 mls/hr TITRATE PRN IV 01/02/17 17:30 01/02/17 15:43 Dopamine HCl/ Dextrose 500 ml @ 16.406 mls/ hr UNSCH PRN IV 01/02/17 14:45 01/02/17 16:31 Phenylephrine HCl 40 mg/Dextrose 500 ml @ 30 mls/hr TITRATE PRN IV 01/02/17 18:00 01/02/17 18:47 Clevidipine 50 ml @ 2 mls/hr TITRATE PRN IV 01/02/17 16:00 Albumin Human 250 ml @ 250 mls/hr UNSCH PRN IV 01/02/17 14:45 Lactated Ringer's 500 ml @ 500 mls/hr Q1H PRN IV 01/02/17 14:38 01/02/17 17:37 Cefazolin Sodium 1000 mg/Sodium Chloride 100 ml @ 200 mls/hr Q8H IV 01/02/17 22:00 01/04/17 06:29 01/03/17 06:15 (Cordarone) 200 mg Q12HR PO 01/02/17 21:00 01/02/17 21:42 (Tylenol) 650 mg Q4H PRN PO 01/02/17 14:45 (Tylenol Supp) 650 mg Q4H PRN RECTAL 01/02/17 14:45 Acetaminophen 100 ml @ 400 mls/hr Q6H IV 01/02/17 16:00 01/03/17 10:14 01/03/17 03:32 (Toradol Inj) 15 mg Q6H PRN IV PUSH 01/02/17 14:45 01/04/17 14:44 01/03/17 03:33 (fentaNYL INJ) 25 mcg Q1H PRN IV PUSH 01/02/17 14:45 01/03/17 06:12 (Zofran Inj) 4 mg Q6H PRN IV PUSH 01/02/17 14:45 (Apresoline Inj) 10 mg Q4H PRN IV PUSH 01/02/17 14:45 (Lopressor Inj) 2.5 mg Q1H PRN IV PUSH 01/02/17 14:45 Potassium Chloride 100 ml @ 50 mls/hr UNSCH PRN IV 01/02/17 14:45 Potassium Chloride 100 ml @ 50 mls/hr UNSCH PRN IV 01/02/17 14:45 (KCl) 20 meq UNSCH PRN PO 01/02/17 14:45 (KCl) 40 meq UNSCH PRN PO 01/02/17 14:45 Magnesium Sulfate 2 gm/Sodium Chloride 104 ml @ 100 mls/hr UNSCH PRN IV 01/02/17 14:45 Magnesium Sulfate 2 gm/Sodium Chloride 104 ml @ 50 mls/hr UNSCH PRN IV 01/02/17 14:45 Calcium Chloride 1 gm/Sodium Chloride 110 ml @ 100 mls/hr UNSCH PRN IV 01/02/17 14:45 (Calcium Chloride Inj) 0.5 gm UNSCH PRN IV PUSH 01/02/17 14:45 Insulin Human Regular 100 units/ Sodium Chloride 100 ml @ 3 mls/hr TITRATE PRN IV 01/02/17 16:00 01/02/17 16:20 (D50w (Vial) Inj) 50 ml UNSCH PRN IV PUSH 01/02/17 14:45 (Sodium Bicarbonate 8.4% Inj) 50 meq UNSCH PRN IV PUSH 01/02/17 14:45 (Sodium Bicarbonate 8.4% Inj) 100 meq UNSCH PRN IV PUSH 01/02/17 14:45 (Duoneb Neb) 1 ampule Q6HR NEB NEB 01/02/17 16:00 01/03/17 03:02 (Duoneb Neb) 1 ampule Q2HR NEB PRN NEB 01/02/17 14:45 (Racepinephrine 2.25% Neb) 0.5 ml UNSCH X1 PRN NEB 01/02/17 14:45 01/03/17 14:44 A/P Assessment and Plan SOB- improved and currently asymptomatic s/p CABGx2 and AVR with Dr. Federico cervantes O2 DVT prophylaxis pulmonary toilet Hypocalcemia cont IVF supplement as needed Severe aortic stenosis- s/p CABGx2 and AVR with Dr. Federico cervantes to monitor pt cont telemetry cont heart healthy diet Elevated LDL- continue atorvastatin. Leukocytosis- poss secondary to surgery monitor labs and vitals Agree with above. Case discussed at length with Padmini Fuentes MS III AlfredoPadmini M3 Jan 03, 2017 08:01 Elidia Cheng MD Jan 03, 2017 13:43
[2017-01-03] MEDS ORDERED: SODIUM CHLORID 0.9% 500 ML INJ 500 ML IV ONE (08:30)
[2017-01-03] MEDS: DOCUSATE SODIUM 50 MG/SENNA 8.6 MG TAB PO SCH ×2 (08:48→20:19)
[2017-01-03] MEDS: AMIODARONE 200 MG TAB PO SCH ×2 (08:48→20:19)
[2017-01-03] MEDS: PANTOPRAZOLE SOD 40 MG DELAYED RELEASE TAB PO SCH (08:48)
[2017-01-03] MEDS: SODIUM CHLORIDE 0.9% FLUSH 10 ML FLUSH IV FLUSH SCH ×2 (08:48→20:23)
[2017-01-03] MEDS: ASPIRIN 81 MG CHEW TAB CHEW SCH (08:48)
--- NOTE | 2017-01-03 10:25 | HHI.PR ---
Subjective Remarks In bed, appears in nad. Says he has no pain at this time. Has pain at the surgical site with cough, movement. No sob, nausea, diaphoresis, lightheadedness. Fever or chills. No n/v/d/c. Objective Vitals Vital Signs Date Time Temp Pulse Resp B/P (MAP) Pulse Ox O2 Delivery O2 Flow Rate FiO2 01/03/17 07:00 97.6 91 16 84/54 (64) 98 94/54 (67) 01/03/17 07:00 96 01/03/17 07:00 98 Nasal Cannula 4.00 01/03/17 03:31 86/44 01/03/17 03:18 99 01/03/17 03:12 94 Mechanical Ventilator 5.00 Nasal Cannula 01/03/17 03:12 97.3 98 16 103/63 (76) 94 101/54 (70) 01/02/17 23:10 94 Mechanical Ventilator 5.00 Nasal Cannula 01/02/17 23:10 96.9 90 18 105/68 (80) 94 108/60 (76) 01/02/17 23:00 90 01/02/17 21:21 97 Nasal Cannula 5.00 01/02/17 20:05 92 Nasal Cannula 5.00 01/02/17 19:30 98.6 69 13 89/63 (72) 96 102/55 (71) 01/02/17 19:30 40 01/02/17 19:30 96 Mechanical Ventilator 40 01/02/17 19:00 74 01/02/17 18:47 72 96/53 01/02/17 18:00 72 01/02/17 17:00 74 01/02/17 16:31 82 80/33 01/02/17 16:00 100 01/02/17 16:00 79 01/02/17 15:43 96.7 82 10 75/45 (55) 86 97/39 (58) 01/02/17 15:43 82 97/39 I/O 01/02/17 01/02/17 01/02/17 01/03/17 01/03/17 01/03/17 07:00 15:00 23:00 07:00 15:00 23:00 Intake Total 240 ml 4624 ml 290 ml Output Total 200 ml 2940 ml 1715 ml Balance 40 ml 1684 ml -1425 ml Intake Oral 240 ml 200 ml IV Total 674 ml 90 ml Autotransfusion 750 ml Other 3200 ml Output Urine Total 200 ml 1280 ml 1375 ml Gastric Drainage Total 0 ml Chest Tube Drainage Total 160 ml 340 ml Estimated Blood Loss 1500 ml # Voids 2 # Bowel Movements 0 0 0 Result Diagram: 01/03/17 0340 01/03/17 0340 Imaging Last Impressions Chest X-Ray 01/03/17 0500 Signed Impressions: Service Date/Time: Tuesday, January 03, 2017 04:49 - CONCLUSION: Remaining tubes and lines are in good position. Mirza Knight MD Lower Extremity Ultrasound 12/31/16 0000 Signed Impressions: Service Date/Time: Saturday, December 31, 2016 17:14 - CONCLUSION: Venous mapping as described above. Silvio Bernstein MD FACR Carotid Artery Ultrasound 12/31/16 0000 Signed Impressions: Service Date/Time: Saturday, December 31, 2016 16:28 - CONCLUSION: Negative for hemodynamically significant stenosis. Silvio Bernstein MD FACR CT Angiography 12/29/16 0559 Signed Impressions: Service Date/Time: Thursday, December 29, 2016 06:24 - CONCLUSION: Bilateral pleural effusions. Mild basilar atelectasis. No evidence of pulmonary embolism. Mirza Russ MD Objective Remarks GENERAL: Awake alert and oriented talkative and cooperative SKIN: Warm and dry. Multiple tattoos CARDIOVASCULAR: Regular rate and rhythm. S1 and S2 no S3 or S4 no heave or thrill or rub or gallop RESPIRATORY: No accessory muscle use. Clear to auscultation. Breath sounds equal bilaterally. GASTROINTESTINAL: Abdomen soft, non-tender, nondistended. Hepatic and splenic margins not palpable. MUSCULOSKELETAL: Extremities without clubbing, cyanosis, or edema. No obvious deformities. Right groin sheath in place NEUROLOGICAL: Awake and alert. No obvious cranial nerve deficits. Motor grossly within normal limits. Five out of 5 muscle strength in the arms and legs. Normal speech. PSYCHIATRIC: Appropriate mood and affect; insight and judgment normal. Procedures Cardiac catheterization December [address] Higgins A/P Assessment and Plan Severe aortic stenosis with congestive heart failure SOB 2/2 above- improved. Echo results reviewed, consulted cardiology for severe aortic stenosis/chf, transfer patient to [facility] for poss aortic valve replacement surgery. Troponin and TSH wnl. Mildly elevated troponin- likely 2/2 demand ischemia, trops normalized Mild hypocalcemia- normalized S/p cardiac catheterization today with Dr. Higgins noted to have aortic valve issues and couple vessel coronary artery disease Seen by Dr Glez, CTS s/p aortic valve replacement and CABG x2 on 01/02/17. 01/03/17 noted hypotension BP 84/44. Will order bolus ND 500. Received amiodarone. Monitor VS closely. Discussed with patient, ICU nurse, Dr Alcaraz cardio, Dr Glez CTS Discharge Planning S/p aortic valve replacement and CABG x2 on Thursday01/02/17 Pending improvement and clearance form consultants Elidia Cheng MD Jan 03, 2017 10:25
--- NOTE | 2017-01-03 11:42 | PD.CAR.PN ---
CVT Progress Note CVT: POD #: 1 Subjective/Hospital Course: 61-year-old male, presented to the emergency room for several day history of dyspnea on exertion, and shortness of breath per the son who is a hyster driver. He says his father has been short of breath for a few months. Apparently two months ago he was at a local store and had a questionable seizure episode. A bystander said it was more like a generalized tonic clonic, fell on his head, had a laceration on the back of his head, had 21 rosalba. They also said he bit his tongue but he did not have any urinary or bowel incontinence. There was no focal weakness or numbness of the extremities. No prior history of illicit drug use. They did a CT at that time in September which showed some maxillary sinus air fluid levels. No evidence of skull fracture. No midline shift, mass lesions, hemorrhage or acute infarct. Pt underwent underwent cardiac catheterization which showed left main disease at 20%, mid distal LAD 80 %, the RCA was 80%. echocardiogram showed an EF of 25 to 30%, some mildly dilated left ventricle, global left ventricular dysfunction, some mild mitral regurgitation, possible bicuspid aortic valve with severe aortic valve stenosis, peak gradient of 71, mean gradient of 45 with aortic valve area 0.5, some trace aortic insufficiency. were consulted to evaluate for aortic valve replacement and coronary artery bypass grafting x2. PMH: no MD follow up in many years, disabled 2/2 prior work accident with back injury and surgery C spine and lower back 01/01 pt denies having any chest pain pt on ASA, statin no BB 2/2 labile BP plan is fvery AVR tissue valve and CABG x 2 in am 01/03/17 No complaints. Remains on dopamine and LISA which are being weaned. Objective: Vital Signs Date Time Temp Pulse Resp B/P (MAP) Pulse Ox O2 Delivery O2 Flow Rate FiO2 01/03/17 11:00 94 Nasal Cannula 4.00 01/03/17 07:00 97.6 91 16 84/54 (64) 98 94/54 (67) 01/03/17 07:00 96 01/03/17 07:00 98 Nasal Cannula 4.00 01/03/17 03:31 86/44 01/03/17 03:18 99 01/03/17 03:12 94 Mechanical Ventilator 5.00 Nasal Cannula 01/03/17 03:12 97.3 98 16 103/63 (76) 94 101/54 (70) 01/02/17 23:10 94 Mechanical Ventilator 5.00 Nasal Cannula 01/02/17 23:10 96.9 90 18 105/68 (80) 94 108/60 (76) 01/02/17 23:00 90 01/02/17 21:21 97 Nasal Cannula 5.00 01/02/17 20:05 92 Nasal Cannula 5.00 01/02/17 19:30 98.6 69 13 89/63 (72) 96 102/55 (71) 01/02/17 19:30 40 01/02/17 19:30 96 Mechanical Ventilator 40 01/02/17 19:00 74 01/02/17 18:47 72 96/53 01/02/17 18:00 72 01/02/17 17:00 74 01/02/17 16:31 82 80/33 01/02/17 16:00 100 01/02/17 16:00 79 01/02/17 15:43 96.7 82 10 75/45 (55) 86 97/39 (58) 01/02/17 15:43 82 97/39 Labs: Laboratory Tests Test 01/03/17 03:40 White Blood Count 12.4 TH/MM3 (4.0-11.0) Red Blood Count 4.09 MIL/MM3 (4.50-5.90) Hemoglobin 11.8 GM/DL (13.0-17.0) Hematocrit 35.3 % (39.0-51.0) Mean Corpuscular Volume 86.4 FL (80.0-100.0) Mean Corpuscular Hemoglobin 28.9 PG (27.0-34.0) Mean Corpuscular Hemoglobin Concent 33.4 % (32.0-36.0) Red Cell Distribution Width 14.3 % (11.6-17.2) Platelet Count 177 TH/MM3 (150-450) Mean Platelet Volume 7.7 FL (7.0-11.0) Blood Urea Nitrogen 26 MG/DL (7-18) Creatinine 0.79 MG/DL (0.60-1.30) Random Glucose 119 MG/DL (74-106) Calcium Level 7.7 MG/DL (8.5-10.1) Magnesium Level 2.3 MG/DL (1.5-2.5) Sodium Level 137 MEQ/L (136-145) Potassium Level 3.9 MEQ/L (3.5-5.1) Chloride Level 105 MEQ/L (98-107) Carbon Dioxide Level 22.8 MEQ/L (21.0-32.0) Anion Gap 9 MEQ/L (5-15) Estimat Glomerular Filtration Rate 100 ML/MIN (>89) Result Diagram: 01/03/17 0340 01/03/17 0340 Imaging: Last Impressions Chest X-Ray 01/03/17 0500 Signed Impressions: Service Date/Time: Tuesday, January 03, 2017 04:49 - CONCLUSION: Remaining tubes and lines are in good position. Mirza Knight MD Lower Extremity Ultrasound 12/31/16 0000 Signed Impressions: Service Date/Time: Saturday, December 31, 2016 17:14 - CONCLUSION: Venous mapping as described above. Silvio Bernstein MD FACR Carotid Artery Ultrasound 12/31/16 0000 Signed Impressions: Service Date/Time: Saturday, December 31, 2016 16:28 - CONCLUSION: Negative for hemodynamically significant stenosis. Silvio Bernstein MD FACR CT Angiography 12/29/16 0559 Signed Impressions: Service Date/Time: Thursday, December 29, 2016 06:24 - CONCLUSION: Bilateral pleural effusions. Mild basilar atelectasis. No evidence of pulmonary embolism. Mirza Russ MD Cardiovascular: RRR Telemetry: NSR Pulmonary: Few crackles bilat GI/: NABS, NT Incision: dry and intact CT: 500ml since OR Plan: Wean LISA and dopamine off. Up to chair, ambulate advance diet Remove olmos Continue chest tubes No BB due to low BP today. (1) Aortic stenosis, severe (2) CAD (coronary artery disease) Plan: statin , ASA for OR in am carotid US ok US lower ext , no DVT fair targets in upper legs , poor in lower ext (3) Pulmonary edema Trupti Glez MD Jan 03, 2017 11:42
--- NOTE | 2017-01-03 12:02 | PD.CARD.PN ---
Subjective Subjective Remarks Self extubated overnight No complaints today Appropriate chest pain along sternotomy Objective Medications Current Medications Medications (Trade) Dose Ordered Sig/Elsa Route Start Time Stop Time Status Last Admin (Protonix) 40 mg DAILY PO 12/29/16 11:30 01/03/17 08:48 (Benadryl) 50 mg HS PRN PO 12/29/16 17:30 (Atropine Inj) 0.5 mg UNSCH PRN IV PUSH 12/31/16 09:45 (Aspirin Chew) 81 mg DAILY CHEW 01/01/17 09:00 01/03/17 08:48 (Ambien) 5 mg HS PRN PO 12/31/16 13:30 01/01/17 20:56 (Tylenol) 650 mg Q6H PRN PO 12/31/16 13:30 (Percocet 5-325 Mg) 1 tab Q6H PRN PO 12/31/16 13:30 (Percocet 10-325 Mg) 1 tab Q6H PRN PO 12/31/16 13:30 01/03/17 11:26 (Narcan Inj) 0.4 mg UNSCH PRN IV PUSH 12/31/16 13:30 (Gaviota-Colace) 1 tab BID PO 12/31/16 21:00 01/03/17 08:48 (Milk Of Magnesia Liq) 30 ml Q12H PRN PO 12/31/16 13:30 (Senokot) 17.2 mg Q12H PRN PO 12/31/16 13:30 (Dulcolax Supp) 10 mg DAILY PRN RECTAL 12/31/16 13:30 (Lactulose Liq) 30 ml DAILY PRN PO 12/31/16 13:30 (NS Flush) 2 ml BID IV FLUSH 12/31/16 21:00 01/01/17 20:01 (NS Flush) 2 ml UNSCH PRN IV FLUSH 12/31/16 15:45 Papaverine HCl 60 mg/Nitroglycerin 100 mcg/Diltiazem HCl 100 mg/Sodium Chloride 100 ml @ 0 mls/hr SILK FINISHER IRRIGATION 12/31/16 15:45 01/07/17 15:44 Cefazolin Sodium 500 mg/Sodium Chloride 505 ml @ 0 mls/hr SILK FINISHER IRRIGATION 12/31/16 15:45 01/07/17 15:44 Cefazolin Sodium/ Dextrose 50 ml @ 150 mls/hr SILK FINISHER IV 12/31/16 15:45 01/07/17 15:44 (Lopressor) 12.5 mg SILK FINISHER PO 12/31/16 15:45 01/07/17 15:44 01/02/17 05:57 (Hibiclens 4% Top Soln) 1 applic SILK FINISHER TOPICAL 12/31/16 15:45 01/07/17 15:44 01/02/17 03:53 (Lipitor) 40 mg HS PO 01/01/17 21:00 01/02/17 21:42 Lactated Ringer's 1,000 ml @ 30 mls/hr Q24H PRN IV 01/02/17 04:00 01/05/17 03:59 Sodium Chloride 500 ml @ 30 mls/hr [id number] PRN IV 01/02/17 04:00 01/05/17 03:59 (Betadine 5% Antisepsis Kit) 1 applic SILK FINISHER PRN EACH NARE 01/02/17 04:00 01/05/17 03:59 (Chlorhexidine 2% Cloth) 3 pack SILK FINISHER PRN TOPICAL 01/02/17 04:00 01/05/17 03:59 (NovoLIN R INJ) See Protocol Table ... SILK FINISHER PRN SQ 01/02/17 04:00 01/05/17 03:59 Dexmedetomidine HCl 200 mcg/ Sodium Chloride 52 ml @ 4.55 mls/hr TITRATE PRN IV 01/02/17 17:30 01/02/17 15:43 Dopamine HCl/ Dextrose 500 ml @ 16.406 mls/ hr UNSCH PRN IV 01/02/17 14:45 01/02/17 16:31 Phenylephrine HCl 40 mg/Dextrose 500 ml @ 30 mls/hr TITRATE PRN IV 01/02/17 18:00 01/02/17 18:47 Clevidipine 50 ml @ 2 mls/hr TITRATE PRN IV 01/02/17 16:00 Albumin Human 250 ml @ 250 mls/hr UNSCH PRN IV 01/02/17 14:45 Lactated Ringer's 500 ml @ 500 mls/hr Q1H PRN IV 01/02/17 14:38 01/02/17 17:37 Cefazolin Sodium 1000 mg/Sodium Chloride 100 ml @ 200 mls/hr Q8H IV 01/02/17 22:00 01/04/17 06:29 01/03/17 06:15 (Cordarone) 200 mg Q12HR PO 01/02/17 21:00 01/03/17 08:48 (Tylenol) 650 mg Q4H PRN PO 01/02/17 14:45 (Tylenol Supp) 650 mg Q4H PRN RECTAL 01/02/17 14:45 (Toradol Inj) 15 mg Q6H PRN IV PUSH 01/02/17 14:45 01/04/17 14:44 01/03/17 03:33 (fentaNYL INJ) 25 mcg Q1H PRN IV PUSH 01/02/17 14:45 01/03/17 06:12 (Zofran Inj) 4 mg Q6H PRN IV PUSH 01/02/17 14:45 (Apresoline Inj) 10 mg Q4H PRN IV PUSH 01/02/17 14:45 (Lopressor Inj) 2.5 mg Q1H PRN IV PUSH 01/02/17 14:45 Potassium Chloride 100 ml @ 50 mls/hr UNSCH PRN IV 01/02/17 14:45 Potassium Chloride 100 ml @ 50 mls/hr UNSCH PRN IV 01/02/17 14:45 (KCl) 20 meq UNSCH PRN PO 01/02/17 14:45 (KCl) 40 meq UNSCH PRN PO 01/02/17 14:45 Magnesium Sulfate 2 gm/Sodium Chloride 104 ml @ 100 mls/hr UNSCH PRN IV 01/02/17 14:45 Magnesium Sulfate 2 gm/Sodium Chloride 104 ml @ 50 mls/hr UNSCH PRN IV 01/02/17 14:45 Calcium Chloride 1 gm/Sodium Chloride 110 ml @ 100 mls/hr UNSCH PRN IV 01/02/17 14:45 (Calcium Chloride Inj) 0.5 gm UNSCH PRN IV PUSH 01/02/17 14:45 (D50w (Vial) Inj) 50 ml UNSCH PRN IV PUSH 01/02/17 14:45 (Sodium Bicarbonate 8.4% Inj) 50 meq UNSCH PRN IV PUSH 01/02/17 14:45 (Sodium Bicarbonate 8.4% Inj) 100 meq UNSCH PRN IV PUSH 01/02/17 14:45 (Duoneb Neb) 1 ampule Q6HR NEB NEB 01/02/17 16:00 01/03/17 03:02 (Duoneb Neb) 1 ampule Q2HR NEB PRN NEB 01/02/17 14:45 (Racepinephrine 2.25% Neb) 0.5 ml UNSCH X1 PRN NEB 01/02/17 14:45 01/03/17 14:44 (NovoLOG SUPPLEMENTAL SCALE) 1 Q4H SQ 01/03/17 14:00 Vital Signs / I&O Vital Signs Date Time Temp Pulse Resp B/P (MAP) Pulse Ox O2 Delivery O2 Flow Rate FiO2 01/03/17 11:00 92 01/03/17 11:00 94 Nasal Cannula 4.00 01/03/17 11:00 98.0 96 16 105/62 (76) 94 Arterial Line 01/03/17 07:00 97.6 91 16 84/54 (64) 98 94/54 (67) 01/03/17 07:00 96 01/03/17 07:00 98 Nasal Cannula 4.00 01/03/17 03:31 86/44 01/03/17 03:18 99 01/03/17 03:12 94 Mechanical Ventilator 5.00 Nasal Cannula 01/03/17 03:12 97.3 98 16 103/63 (76) 94 101/54 (70) 01/02/17 23:10 94 Mechanical Ventilator 5.00 Nasal Cannula 01/02/17 23:10 96.9 90 18 105/68 (80) 94 108/60 (76) 01/02/17 23:00 90 01/02/17 21:21 97 Nasal Cannula 5.00 01/02/17 20:05 92 Nasal Cannula 5.00 01/02/17 19:30 98.6 69 13 89/63 (72) 96 102/55 (71) 01/02/17 19:30 40 01/02/17 19:30 96 Mechanical Ventilator 40 01/02/17 19:00 74 01/02/17 18:47 72 96/53 01/02/17 18:00 72 01/02/17 17:00 74 01/02/17 16:31 82 80/33 01/02/17 16:00 100 01/02/17 16:00 79 01/02/17 15:43 96.7 82 10 75/45 (55) 86 97/39 (58) 01/02/17 15:43 82 97/39 I/O 01/02/17 01/02/17 01/02/17 01/03/17 01/03/17 01/03/17 07:00 15:00 23:00 07:00 15:00 23:00 Intake Total 240 ml 4624 ml 290 ml Output Total 200 ml 2940 ml 1715 ml Balance 40 ml 1684 ml -1425 ml Intake Oral 240 ml 200 ml IV Total 674 ml 90 ml Autotransfusion 750 ml Other 3200 ml Output Urine Total 200 ml 1280 ml 1375 ml Gastric Drainage Total 0 ml Chest Tube Drainage Total 160 ml 340 ml Estimated Blood Loss 1500 ml # Voids 2 # Bowel Movements 0 0 0 Physical Exam GENERAL: NAD, AAOx3 SKIN: Warm and dry. HEAD: Atraumatic. Normocephalic. EYES: Pupils equal and round. No scleral icterus. No injection or drainage. ENT: No nasal bleeding or discharge. Mucous membranes pink and moist. NECK: Trachea midline. No JVD. CARDIOVASCULAR: Regular rate and rhythm. Sternotomy with wound vac RESPIRATORY: No accessory muscle use. Clear to auscultation. Breath sounds equal bilaterally. GASTROINTESTINAL: Abdomen soft, non-tender, nondistended. Hepatic and splenic margins not palpable. MUSCULOSKELETAL: Extremities without clubbing, cyanosis, or edema. No obvious deformities. NEUROLOGICAL: Awake and alert. No obvious cranial nerve deficits. Motor grossly within normal limits. Five out of 5 muscle strength in the arms and legs. Normal speech. PSYCHIATRIC: Appropriate mood and affect; insight and judgment normal. Laboratory Laboratory Tests Test 01/03/17 03:40 White Blood Count 12.4 TH/MM3 Red Blood Count 4.09 MIL/MM3 Hemoglobin 11.8 GM/DL Hematocrit 35.3 % Mean Corpuscular Volume 86.4 FL Mean Corpuscular Hemoglobin 28.9 PG Mean Corpuscular Hemoglobin Concent 33.4 % Red Cell Distribution Width 14.3 % Platelet Count 177 TH/MM3 Mean Platelet Volume 7.7 FL Blood Urea Nitrogen 26 MG/DL Creatinine 0.79 MG/DL Random Glucose 119 MG/DL Calcium Level 7.7 MG/DL Magnesium Level 2.3 MG/DL Sodium Level 137 MEQ/L Potassium Level 3.9 MEQ/L Chloride Level 105 MEQ/L Carbon Dioxide Level 22.8 MEQ/L Anion Gap 9 MEQ/L Estimat Glomerular Filtration Rate 100 ML/MIN Imaging Last 24 hours Impressions Chest X-Ray 01/03/17 0500 Signed Impressions: Service Date/Time: Tuesday, January 03, 2017 04:49 - CONCLUSION: Remaining tubes and lines are in good position. Mirza Knight MD Assessment and Plan Problem List: (1) Aortic stenosis, severe ICD Codes: I35.0 - Nonrheumatic aortic (valve) stenosis (2) CAD (coronary artery disease) ICD Codes: I25.10 - Atherosclerotic heart disease of [place] coronary artery without angina pectoris (3) Pulmonary edema ICD Codes: J81.1 - Chronic pulmonary edema Status: Acute (4) AVR/ CABG x 2 Assessment and Plan 1) /CAD s/p AVR with CABGx2 POD #1 25mm Intuity tissue valve SAENZ to LAD SVG to RCA 2) EF 25-30% pre-operatively In the procedure, appeared to be greater 3) ASA/Lipitor/Amio 4) BB on hold with on pressors 5) Wean pressors as possible Al Payne DO Jan 03, 2017 12:02
--- NOTE | 2017-01-03 12:06 | EKG ---
Date Performed: 01/03/2017 Time Performed: 05:32:30 PTAGE: 61 years EKG: Sinus tachycardia Possible left atrial abnormality Nonspecific T wave changes Compared to p rior electrocardiogram,Nonspecific T wave changes are now present Abnormal ECG PREVIOUS TRACING : 12/29/2016 05.23 DOCTOR: Terry Jean Interpretating Date/Time 01/03/2017 12:05:15
[2017-01-03] MEDS: INDIVIDUALIZED INSULIN NOVOLOG SUPPLEMENTAL SCALE SQ SCH ×3 (13:49→22:08)
[2017-01-03] MEDS: ATORVASTATIN 40 MG TAB PO SCH (20:19)
[2017-01-03] MEDS: ZOLPIDEM TARTRATE 5 MG TAB PO PRN (21:55)
[2017-01-04] VITALS (19 sets, daily range): BP systolic 101–123; BP diastolic 61–71; PULSE 94–108; RESP 18–20; TEMP 97.9–98.4; O2SAT 93–98
[2017-01-04] MEDS: INDIVIDUALIZED INSULIN NOVOLOG SUPPLEMENTAL SCALE SQ SCH ×6 (02:00→22:00)
[2017-01-04] MEDS: RESP: ALBUTEROL 2.5 MG/IPRATROPIUM 0.5 MG NEB (SCH) NEB ×3 (03:46→19:22)
[2017-01-04 04:31] LABS: AUTOMATED NEUTROPHIL # 7.7 TH/MM3 (1.8-7.7); BASOPHIL % 0.2 % (0.0-2.0); EOSINOPHIL % 0.2 % (0.0-4.0); HEMATOCRIT 31.2 % (39.0-51.0); HEMO FLAGS DIFF FINAL; LYMPH % 13.3 % (9.0-44.0); LYMPHOCYTE # 1.3 TH/MM3 (1.0-4.8); MEAN CELL VOLUME 87.3 FL (80.0-100.0); MEAN CORPUSCULAR HEMOGLOBIN 29.7 PG (27.0-34.0); MONO % 9.8 % (0.0-8.0); NEUT % 76.5 % (16.0-70.0); PLATELET COUNT 121 TH/MM3 (150-450); RED BLOOD COUNT 3.57 MIL/MM3 (4.50-5.90); RED CELL DISTRIBUTION WIDTH 14.8 % (11.6-17.2)
[2017-01-04 05:43] LABS: BICARBONATE 25.3 MEQ/L (21.0-32.0); POTASSIUM 4.5 MEQ/L (3.5-5.1)
[2017-01-04] MEDS: oxyCODONE/ACETAMINOPHEN 10 MG/325 MG TAB PO PRN ×2 (06:03→14:26)
[2017-01-04 06:14] LABS: CALCIUM-PROTEIN CORRECTED 8.3 MG/DL (8.5-10.1)
--- NOTE | 2017-01-04 07:56 | HHI.PR ---
Subjective Remarks Patient in nad. Has some chest pain. He did sweet in the morning. No lightheadedness or sob. No n/v/d/c. Objective Vitals Vital Signs Date Time Temp Pulse Resp B/P (MAP) Pulse Ox O2 Delivery O2 Flow Rate FiO2 01/04/17 03:35 18 01/04/17 03:00 98 01/04/17 03:00 93 Nasal Cannula 4.00 01/04/17 03:00 98.3 98 20 113/71 (85) 94 01/03/17 23:00 104 01/03/17 23:00 93 Nasal Cannula 4.00 01/03/17 23:00 20 01/03/17 23:00 97.9 104 18 107/65 (79) 93 01/03/17 20:56 95 Nasal Cannula 4.00 01/03/17 19:00 100 01/03/17 19:00 98.3 100 20 99/60 (73) 94 01/03/17 19:00 94 Nasal Cannula 4.00 01/03/17 15:00 92 01/03/17 15:00 92 Nasal Cannula 4.00 01/03/17 15:00 98.1 86 16 98/64 (75) 92 01/03/17 12:03 95 Nasal Cannula 4.00 01/03/17 11:00 92 01/03/17 11:00 94 Nasal Cannula 4.00 01/03/17 11:00 98.0 96 16 105/62 (76) 94 Arterial Line I/O 01/03/17 01/03/17 01/03/17 01/04/17 01/04/17 01/04/17 07:00 15:00 23:00 07:00 15:00 23:00 Intake Total 290 ml 630 ml 700 ml 480 ml Output Total 1715 ml 770 ml 1020 ml Balance -1425 ml 630 ml -70 ml -540 ml Intake Oral 200 ml 600 ml 480 ml IV Total 90 ml 630 ml 100 ml Output Urine Total 1375 ml 600 ml 900 ml Chest Tube Drainage Total 340 ml 170 ml 120 ml # Bowel Movements 0 0 0 Result Diagram: 01/04/17 04101/04/17412 Imaging Last Impressions Chest X-Ray 01/03/17 0500 Signed Impressions: Service Date/Time: Tuesday, January 03, 2017 04:49 - CONCLUSION: Remaining tubes and lines are in good position. Mirza Knight MD Lower Extremity Ultrasound 12/31/16 0000 Signed Impressions: Service Date/Time: Saturday, December 31, 2016 17:14 - CONCLUSION: Venous mapping as described above. Silvio Bernstein MD FACR Carotid Artery Ultrasound 12/31/16 0000 Signed Impressions: Service Date/Time: Saturday, December 31, 2016 16:28 - CONCLUSION: Negative for hemodynamically significant stenosis. Silvio Bernstein MD FACR CT Angiography 12/29/16 0559 Signed Impressions: Service Date/Time: Thursday, December 29, 2016 06:24 - CONCLUSION: Bilateral pleural effusions. Mild basilar atelectasis. No evidence of pulmonary embolism. Mirza Russ MD Objective Remarks GENERAL: Awake alert and oriented talkative and cooperative SKIN: Warm and dry. Multiple tattoos CARDIOVASCULAR: Regular rate and rhythm. S1 and S2 no S3. Sternotomy with wound vac in place RESPIRATORY: No accessory muscle use. Clear to auscultation. Breath sounds equal bilaterally. GASTROINTESTINAL: Abdomen soft, non-tender, nondistended. Hepatic and splenic margins not palpable. MUSCULOSKELETAL: Extremities without clubbing, cyanosis, or edema. No obvious deformities. NEUROLOGICAL: Awake and alert. No obvious cranial nerve deficits. Motor grossly within normal limits. Five out of 5 muscle strength in the arms and legs. Normal speech. PSYCHIATRIC: Appropriate mood and affect; insight and judgment normal. Procedures Cardiac catheterization December [address] Higgins A/P Assessment and Plan Severe aortic stenosis with congestive heart failure SOB 2/2 above- improved. Echo results reviewed, consulted cardiology for severe aortic stenosis/chf, transfer patient to [facility] for poss aortic valve replacement surgery. Troponin and TSH wnl. Mildly elevated troponin- likely 2/2 demand ischemia, trops normalized Mild hypocalcemia- normalized S/p cardiac catheterization with Dr. Higgins noted to have aortic valve issues and couple vessel coronary artery disease Seen by Dr Glez, CTS s/p aortic valve replacement and CABG x2 on 01/02/17. 01/03/17 noted hypotension BP 84/44. Received bolus NS 500. Was on drips dobutamine and catrachito per CTS. Monitor VS closely. Off drips catrachito and [id number]/15. VS are stable. Discussed with patient, ICU nurse Discharge Planning S/p aortic valve replacement and CABG x2 on Thursday01/02/17 Pending improvement and clearance form consultants Off drips. Might downgrade today Elidia Cheng MD Jan 04, 2017 07:56
[2017-01-04] MEDS: AMIODARONE 200 MG TAB PO SCH ×2 (08:35→21:27)
[2017-01-04] MEDS: PANTOPRAZOLE SOD 40 MG DELAYED RELEASE TAB PO SCH (08:36)
[2017-01-04] MEDS: DOCUSATE SODIUM 50 MG/SENNA 8.6 MG TAB PO SCH (08:36)
[2017-01-04] MEDS: ASPIRIN 81 MG CHEW TAB CHEW SCH (08:36)
[2017-01-04] MEDS: SODIUM CHLORIDE 0.9% FLUSH 10 ML FLUSH IV FLUSH SCH ×2 (09:00→21:00)
--- NOTE | 2017-01-04 10:07 | PD.CAR.PN ---
CVT Progress Note Subjective/Hospital Course: 61-year-old male, presented to the emergency room for several day history of dyspnea on exertion, and shortness of breath per the son who is a delinquency prevention social worker. He says his father has been short of breath for a few months. Apparently two months ago he was at a local store and had a questionable seizure episode. A bystander said it was more like a generalized tonic clonic, fell on his head, had a laceration on the back of his head, had 21 rosalba. They also said he bit his tongue but he did not have any urinary or bowel incontinence. There was no focal weakness or numbness of the extremities. No prior history of illicit drug use. They did a CT at that time in September which showed some maxillary sinus air fluid levels. No evidence of skull fracture. No midline shift, mass lesions, hemorrhage or acute infarct. Pt underwent underwent cardiac catheterization which showed left main disease at 20%, mid distal LAD 80 %, the RCA was 80%. echocardiogram showed an EF of 25 to 30%, some mildly dilated left ventricle, global left ventricular dysfunction, some mild mitral regurgitation, possible bicuspid aortic valve with severe aortic valve stenosis, peak gradient of 71, mean gradient of 45 with aortic valve area 0.5, some trace aortic insufficiency. were consulted to evaluate for aortic valve replacement and coronary artery bypass grafting x2. PMH: no MD follow up in many years, disabled 2/2 prior work accident with back injury and surgery C spine and lower back 01/01 pt denies having any chest pain pt on ASA, statin no BB 2/2 labile BP plan is fvery AVR tissue valve and CABG x 2 in am 01/03/17 No complaints. Remains on dopamine and LISA which are being weaned. 01/04 Nauseated. Otherwise doing well Maintain CT to drainage Transfer [facility] Objective: Vital Signs Date Time Temp Pulse Resp B/P (MAP) Pulse Ox O2 Delivery O2 Flow Rate FiO2 01/04/17 08:07 98 01/04/17 07:00 93 Nasal Cannula 4.00 01/04/17 07:00 98.1 98 18 101/68 (79) 93 01/04/17 03:35 18 01/04/17 03:00 98 01/04/17 03:00 93 Nasal Cannula 4.00 01/04/17 03:00 98.3 98 20 113/71 (85) 94 01/03/17 23:00 104 10/14/17 23:00 93 Nasal Cannula 4.00 01/03/17 23:00 20 01/03/17 23:00 97.9 104 18 107/65 (79) 93 01/03/17 20:56 95 Nasal Cannula 4.00 01/03/17 19:00 100 01/03/17 19:00 98.3 100 20 99/60 (73) 94 01/03/17 19:00 94 Nasal Cannula 4.00 01/03/17 15:00 92 01/03/17 15:00 92 Nasal Cannula 4.00 01/03/17 15:00 98.1 86 16 98/64 (75) 92 01/03/17 12:03 95 Nasal Cannula 4.00 01/03/17 11:00 92 01/03/17 11:00 94 Nasal Cannula 4.00 01/03/17 11:00 98.0 96 16 105/62 (76) 94 Arterial Line Labs: Laboratory Tests Test 01/04/17 04:13 White Blood Count 10.0 TH/MM3 (4.0-11.0) Red Blood Count 3.57 MIL/MM3 (4.50-5.90) Hemoglobin 10.6 GM/DL (13.0-17.0) Hematocrit 31.2 % (39.0-51.0) Mean Corpuscular Volume 87.3 FL (80.0-100.0) Mean Corpuscular Hemoglobin 29.7 PG (27.0-34.0) Mean Corpuscular Hemoglobin Concent 34.0 % (32.0-36.0) Red Cell Distribution Width 14.8 % (11.6-17.2) Platelet Count 121 TH/MM3 (150-450) Mean Platelet Volume 7.7 FL (7.0-11.0) Neutrophils (%) (Auto) 76.5 % (16.0-70.0) Lymphocytes (%) (Auto) 13.3 % (9.0-44.0) Monocytes (%) (Auto) 9.8 % (0.0-8.0) Eosinophils (%) (Auto) 0.2 % (0.0-4.0) Basophils (%) (Auto) 0.2 % (0.0-2.0) Neutrophils # (Auto) 7.7 TH/MM3 (1.8-7.7) Lymphocytes # (Auto) 1.3 TH/MM3 (1.0-4.8) Monocytes # (Auto) 1.0 TH/MM3 (0-0.9) Eosinophils # (Auto) 0.0 TH/MM3 (0-0.4) Basophils # (Auto) 0.0 TH/MM3 (0-0.2) CBC Comment DIFF FINAL Differential Comment Blood Urea Nitrogen 23 MG/DL (7-18) Creatinine 0.89 MG/DL (0.60-1.30) Random Glucose 103 MG/DL (74-106) Total Protein 5.4 GM/DL (6.4-8.2) Calcium Level 7.4 MG/DL (8.5-10.1) Sodium Level 134 MEQ/L (136-145) Potassium Level 4.5 MEQ/L (3.5-5.1) Chloride Level 104 MEQ/L (98-107) Carbon Dioxide Level 25.3 MEQ/L (21.0-32.0) Anion Gap 5 MEQ/L (5-15) Estimat Glomerular Filtration Rate 87 ML/MIN (>89) Protein Corrected Calcium 8.3 MG/DL (8.5-10.1) Result Diagram: 01/04/17 0413 01/04/17 0413 (1) Aortic stenosis, severe (2) CAD (coronary artery disease) (3) Pulmonary edema (4) AVR/ CABG x 2 Maximus Glasgow MD Jan 04, 2017 10:07
[2017-01-04] MEDS ORDERED: BISACODYL 10 MG SUPP RECTAL PRN (10:15)
[2017-01-04] MEDS ORDERED: GLUCAGON 1 MG/ML VIAL OTHER PRN (10:15)
[2017-01-04] MEDS ORDERED: SOD PHOSPHATE/SOD BIPHOSPHATE (ADULT) ENEMA 133ML RECTAL PRN (10:15)
[2017-01-04] MEDS ORDERED: DEXTROSE 50% IN WATER 50 ML VIAL(D50) IV PUSH PRN (10:15)
--- NOTE | 2017-01-04 10:49 | PD.CARD.PN ---
Subjective Subjective Remarks No complaints today Up to the chair Appropriate chest pain along sternotomy Objective Medications Current Medications Medications (Trade) Dose Ordered Sig/Elsa Route Start Time Stop Time Status Last Admin (Protonix) 40 mg DAILY PO 12/29/16 11:30 01/04/17 08:36 (Benadryl) 50 mg HS PRN PO 12/29/16 17:30 (Atropine Inj) 0.5 mg UNSCH PRN IV PUSH 12/31/16 09:45 (Aspirin Chew) 81 mg DAILY CHEW 01/01/17 09:00 01/04/17 08:36 (Ambien) 5 mg HS PRN PO 12/31/16 13:30 01/03/17 21:55 (Tylenol) 650 mg Q6H PRN PO 12/31/16 13:30 (Percocet 5-325 Mg) 1 tab Q6H PRN PO 12/31/16 13:30 (Percocet 10-325 Mg) 1 tab Q6H PRN PO 12/31/16 13:30 01/04/17 06:03 (Narcan Inj) 0.4 mg UNSCH PRN IV PUSH 12/31/16 13:30 (Milk Of Magnesia Liq) 30 ml Q12H PRN PO 12/31/16 13:30 (Senokot) 17.2 mg Q12H PRN PO 12/31/16 13:30 (Lactulose Liq) 30 ml DAILY PRN PO 12/31/16 13:30 (NS Flush) 2 ml BID IV FLUSH 12/31/16 21:00 01/04/17 09:00 (NS Flush) 2 ml UNSCH PRN IV FLUSH 12/31/16 15:45 Papaverine HCl 60 mg/Nitroglycerin 100 mcg/Diltiazem HCl 100 mg/Sodium Chloride 100 ml @ 0 mls/hr ADMISSIONS SPECIALIST IRRIGATION 12/31/16 15:45 01/07/17 15:44 Cefazolin Sodium 500 mg/Sodium Chloride 505 ml @ 0 mls/hr ADMISSIONS SPECIALIST IRRIGATION 12/31/16 15:45 01/07/17 15:44 Cefazolin Sodium/ Dextrose 50 ml @ 150 mls/hr ADMISSIONS SPECIALIST IV 12/31/16 15:45 01/07/17 15:44 (Lopressor) 12.5 mg ADMISSIONS SPECIALIST PO 12/31/16 15:45 01/07/17 15:44 01/02/17 05:57 (Hibiclens 4% Top Soln) 1 applic ADMISSIONS SPECIALIST TOPICAL 12/31/16 15:45 01/07/17 15:44 01/02/17 03:53 (Lipitor) 40 mg HS PO 01/01/17 21:00 01/03/17 20:19 Lactated Ringer's 1,000 ml @ 30 mls/hr Q24H PRN IV 01/02/17 04:00 01/05/17 03:59 Sodium Chloride 500 ml @ 30 mls/hr [id number] PRN IV 01/02/17 04:00 01/05/17 03:59 (Betadine 5% Antisepsis Kit) 1 applic ADMISSIONS SPECIALIST PRN EACH NARE 01/02/17 04:00 01/05/17 03:59 (Chlorhexidine 2% Cloth) 3 pack ADMISSIONS SPECIALIST PRN TOPICAL 01/02/17 04:00 01/05/17 03:59 (NovoLIN R INJ) See Protocol Table ... ADMISSIONS SPECIALIST PRN SQ 01/02/17 04:00 01/05/17 03:59 Dexmedetomidine HCl 200 mcg/ Sodium Chloride 52 ml @ 4.55 mls/hr TITRATE PRN IV 01/02/17 17:30 01/02/17 15:43 Dopamine HCl/ Dextrose 500 ml @ 16.406 mls/ hr UNSCH PRN IV 01/02/17 14:45 01/02/17 16:31 Phenylephrine HCl 40 mg/Dextrose 500 ml @ 30 mls/hr TITRATE PRN IV 01/02/17 18:00 01/02/17 18:47 Clevidipine 50 ml @ 2 mls/hr TITRATE PRN IV 01/02/17 16:00 Albumin Human 250 ml @ 250 mls/hr UNSCH PRN IV 01/02/17 14:45 Lactated Ringer's 500 ml @ 500 mls/hr Q1H PRN IV 01/02/17 14:38 01/02/17 17:37 (Cordarone) 200 mg Q12HR PO 01/02/17 21:00 01/04/17 08:35 (Tylenol) 650 mg Q4H PRN PO 01/02/17 14:45 (Tylenol Supp) 650 mg Q4H PRN RECTAL 01/02/17 14:45 (Toradol Inj) 15 mg Q6H PRN IV PUSH 01/02/17 14:45 01/04/17 14:44 01/03/17 03:33 (fentaNYL INJ) 25 mcg Q1H PRN IV PUSH 01/02/17 14:45 01/04/17 09:43 (Zofran Inj) 4 mg Q6H PRN IV PUSH 01/02/17 14:45 (Apresoline Inj) 10 mg Q4H PRN IV PUSH 01/02/17 14:45 (Lopressor Inj) 2.5 mg Q1H PRN IV PUSH 01/02/17 14:45 Potassium Chloride 100 ml @ 50 mls/hr UNSCH PRN IV 01/02/17 14:45 Potassium Chloride 100 ml @ 50 mls/hr UNSCH PRN IV 01/02/17 14:45 (KCl) 20 meq UNSCH PRN PO 01/02/17 14:45 (KCl) 40 meq UNSCH PRN PO 01/02/17 14:45 Magnesium Sulfate 2 gm/Sodium Chloride 104 ml @ 100 mls/hr UNSCH PRN IV 01/02/17 14:45 Magnesium Sulfate 2 gm/Sodium Chloride 104 ml @ 50 mls/hr UNSCH PRN IV 01/02/17 14:45 Calcium Chloride 1 gm/Sodium Chloride 110 ml @ 100 mls/hr UNSCH PRN IV 01/02/17 14:45 (Calcium Chloride Inj) 0.5 gm UNSCH PRN IV PUSH 01/02/17 14:45 (D50w (Vial) Inj) 50 ml UNSCH PRN IV PUSH 01/02/17 14:45 (Sodium Bicarbonate 8.4% Inj) 50 meq UNSCH PRN IV PUSH 01/02/17 14:45 (Sodium Bicarbonate 8.4% Inj) 100 meq UNSCH PRN IV PUSH 01/02/17 14:45 (Duoneb Neb) 1 ampule Q2HR NEB PRN NEB 01/02/17 14:45 (NovoLOG SUPPLEMENTAL SCALE) 1 Q4H SQ 01/03/17 14:00 01/03/17 22:08 (Duoneb Neb) 1 ampule Q6HR WHILE AWAKE NEB NEB 01/04/17 14:00 01/06/17 13:59 (Colace) 100 mg BID PO 01/04/17 21:00 (Theragran M Tab) 1 tab DAILY PO 01/05/17 09:00 (Milk Of Magnesia Liq) 30 ml DAILY PO 01/05/17 09:00 (Dulcolax Supp) 10 mg UNSCH PRN RECTAL 01/04/17 10:15 (Miralax) 17 gm DAILY PO 01/05/17 09:00 (Senokot) 8.6 mg HS PO 01/04/17 21:00 (Fleets Enema (Adult)) 133 ml UNSCH PRN RECTAL 01/04/17 10:15 (D50w (Vial) Inj) 50 ml UNSCH PRN IV PUSH 01/04/17 10:15 (Glucagon Inj) 1 mg UNSCH PRN OTHER 01/04/17 10:15 Vital Signs / I&O Vital Signs Date Time Temp Pulse Resp B/P (MAP) Pulse Ox O2 Delivery O2 Flow Rate FiO2 01/04/17 08:07 98 01/04/17 07:00 93 Nasal Cannula 4.00 01/04/17 07:00 98.1 98 18 101/68 (79) 93 01/04/17 03:35 18 01/04/17 03:00 98 01/04/17 03:00 93 Nasal Cannula 4.00 01/04/17 03:00 98.3 98 20 113/71 (85) 94 01/03/17 23:00 104 01/03/17 23:00 93 Nasal Cannula 4.00 01/03/17 23:00 20 01/03/17 23:00 97.9 104 18 107/65 (79) 93 01/03/17 20:56 95 Nasal Cannula 4.00 01/03/17 19:00 100 01/03/17 19:00 98.3 100 20 99/60 (73) 94 01/03/17 19:00 94 Nasal Cannula 4.00 01/03/17 15:00 92 01/03/17 15:00 92 Nasal Cannula 4.00 01/03/17 15:00 98.1 86 16 98/64 (75) 92 01/03/17 12:03 95 Nasal Cannula 4.00 01/03/17 11:00 92 01/03/17 11:00 94 Nasal Cannula 4.00 01/03/17 11:00 98.0 96 16 105/62 (76) 94 Arterial Line I/O 01/03/17 01/03/17 01/03/17 01/04/17 01/04/17 01/04/17 07:00 15:00 23:00 07:00 15:00 23:00 Intake Total 290 ml 630 ml 700 ml 480 ml Output Total 1715 ml 770 ml 1020 ml Balance -1425 ml 630 ml -70 ml -540 ml Intake Oral 200 ml 600 ml 480 ml IV Total 90 ml 630 ml 100 ml Output Urine Total 1375 ml 600 ml 900 ml Chest Tube Drainage Total 340 ml 170 ml 120 ml # Bowel Movements 0 0 0 Physical Exam GENERAL: NAD, AAOx3 SKIN: Warm and dry. HEAD: Atraumatic. Normocephalic. EYES: Pupils equal and round. No scleral icterus. No injection or drainage. ENT: No nasal bleeding or discharge. Mucous membranes pink and moist. NECK: Trachea midline. No JVD. CARDIOVASCULAR: Regular rate and rhythm. Sternotomy with wound vac RESPIRATORY: No accessory muscle use. Clear to auscultation. Breath sounds equal bilaterally. GASTROINTESTINAL: Abdomen soft, non-tender, nondistended. Hepatic and splenic margins not palpable. MUSCULOSKELETAL: Extremities without clubbing, cyanosis, or edema. No obvious deformities. NEUROLOGICAL: Awake and alert. No obvious cranial nerve deficits. Motor grossly within normal limits. Five out of 5 muscle strength in the arms and legs. Normal speech. PSYCHIATRIC: Appropriate mood and affect; insight and judgment normal. Laboratory Laboratory Tests Test 01/04/17 04:13 White Blood Count 10.0 TH/MM3 Red Blood Count 3.57 MIL/MM3 Hemoglobin 10.6 GM/DL Hematocrit 31.2 % Mean Corpuscular Volume 87.3 FL Mean Corpuscular Hemoglobin 29.7 PG Mean Corpuscular Hemoglobin Concent 34.0 % Red Cell Distribution Width 14.8 % Platelet Count 121 TH/MM3 Mean Platelet Volume 7.7 FL Neutrophils (%) (Auto) 76.5 % Lymphocytes (%) (Auto) 13.3 % Monocytes (%) (Auto) 9.8 % Eosinophils (%) (Auto) 0.2 % Basophils (%) (Auto) 0.2 % Neutrophils # (Auto) 7.7 TH/MM3 Lymphocytes # (Auto) 1.3 TH/MM3 Monocytes # (Auto) 1.0 TH/MM3 Eosinophils # (Auto) 0.0 TH/MM3 Basophils # (Auto) 0.0 TH/MM3 CBC Comment DIFF FINAL Differential Comment Blood Urea Nitrogen 23 MG/DL Creatinine 0.89 MG/DL Random Glucose 103 MG/DL Total Protein 5.4 GM/DL Calcium Level 7.4 MG/DL Sodium Level 134 MEQ/L Potassium Level 4.5 MEQ/L Chloride Level 104 MEQ/L Carbon Dioxide Level 25.3 MEQ/L Anion Gap 5 MEQ/L Estimat Glomerular Filtration Rate 87 ML/MIN Protein Corrected Calcium 8.3 MG/DL Assessment and Plan Problem List: (1) Aortic stenosis, severe ICD Codes: I35.0 - Nonrheumatic aortic (valve) stenosis (2) CAD (coronary artery disease) ICD Codes: I25.10 - Atherosclerotic heart disease of [place] coronary artery without angina pectoris (3) Pulmonary edema ICD Codes: J81.1 - Chronic pulmonary edema Status: Acute (4) AVR/ CABG x 2 Assessment and Plan 1) /CAD s/p AVR with CABGx2 POD #2 25mm Intuity tissue valve SAENZ to LAD SVG to RCA 2) EF 25-30% pre-operatively In the procedure, appeared to be greater 3) ASA/Lipitor/Amio 4) Will plan to add BB tomorrow if stable Al Payne DO Jan 04, 2017 10:49
[2017-01-04] MEDS: ZOLPIDEM TARTRATE 5 MG TAB PO PRN (21:26)
[2017-01-04] MEDS: SENNOSIDES 8.6 MG TAB PO SCH (21:26)
[2017-01-04] MEDS: oxyCODONE/ACETAMINOPHEN 5 MG/325 MG TAB PO PRN (21:26)
[2017-01-04] MEDS: DOCUSATE SODIUM 100 MG CAP PO SCH (21:26)
[2017-01-04] MEDS: ATORVASTATIN 40 MG TAB PO SCH (21:27)
[2017-01-05] VITALS (27 sets, daily range): BP systolic 96–125; BP diastolic 64–72; PULSE 72–104; RESP 20; TEMP 97.9–98.6; O2SAT 94–98
[2017-01-05] MEDS: INDIVIDUALIZED INSULIN NOVOLOG SUPPLEMENTAL SCALE SQ SCH ×5 (02:00→21:36)
[2017-01-05] MEDS: oxyCODONE/ACETAMINOPHEN 5 MG/325 MG TAB PO PRN ×2 (03:34→14:24)
[2017-01-05 07:17] LABS: AUTOMATED NEUTROPHIL # 6.2 TH/MM3 (1.8-7.7); BASOPHIL % 0.4 % (0.0-2.0); EOSINOPHIL # 0.1 TH/MM3 (0-0.4); EOSINOPHIL % 0.7 % (0.0-4.0); HEMATOCRIT 30.9 % (39.0-51.0); HEMO FLAGS DIFF FINAL; LYMPH % 12.5 % (9.0-44.0); MEAN CELL VOLUME 86.8 FL (80.0-100.0); MEAN CORPUSCULAR HEMOGLOBIN 29.1 PG (27.0-34.0); MEAN CORPUSCULAR HGB CONC 33.5 % (32.0-36.0); MONO % 8.3 % (0.0-8.0); NEUT % 78.1 % (16.0-70.0); PLATELET COUNT 113 TH/MM3 (150-450); RED BLOOD COUNT 3.56 MIL/MM3 (4.50-5.90); RED CELL DISTRIBUTION WIDTH 14.8 % (11.6-17.2); WHITE BLOOD COUNT 7.9 TH/MM3 (4.0-11.0)
[2017-01-05] MEDS: RESP: ALBUTEROL 2.5 MG/IPRATROPIUM 0.5 MG NEB (SCH) NEB ×3 (07:34→20:43)
[2017-01-05 07:49] LABS: BICARBONATE 27.5 MEQ/L (21.0-32.0); POTASSIUM 4.3 MEQ/L (3.5-5.1)
[2017-01-05] MEDS: POLYETHYLENE GLYCOL 17 GM PKG PO SCH (08:19)
[2017-01-05] MEDS: ASPIRIN 81 MG CHEW TAB CHEW SCH (08:20)
[2017-01-05] MEDS: AMIODARONE 200 MG TAB PO SCH ×2 (08:20→20:31)
[2017-01-05] MEDS: PANTOPRAZOLE SOD 40 MG DELAYED RELEASE TAB PO SCH (08:20)
[2017-01-05] MEDS: MULTIVITAMINS/MINERALS THERAPEUTIC TAB PO SCH (08:20)
[2017-01-05] MEDS: oxyCODONE/ACETAMINOPHEN 10 MG/325 MG TAB PO PRN ×2 (08:21→23:04)
[2017-01-05] MEDS: DOCUSATE SODIUM 100 MG CAP PO SCH ×2 (08:21→20:30)
[2017-01-05] MEDS: MAGNESIUM HYDROXIDE SUSP 30 ML CUP PO SCH (08:21)
[2017-01-05] MEDS: SODIUM CHLORIDE 0.9% FLUSH 10 ML FLUSH IV FLUSH SCH ×2 (08:22→20:31)
--- NOTE | 2017-01-05 12:31 | HHI.PR ---
Subjective Remarks Follow-up severe aortic stenosis/CAD/status post CABG 01/05/17-patient seen and examined, pain currently controlled. Denies any significant shortness of breath and currently afebrile Objective Vitals Vital Signs Date Time Temp Pulse Resp B/P (MAP) Pulse Ox O2 Delivery O2 Flow Rate FiO2 01/05/17 12:00 98 01/05/17 11:15 98.6 99 20 103/64 (77) 95 01/05/17 11:15 Room Air 01/05/17 11:00 97 01/05/17 10:00 100 01/05/17 09:40 18 01/05/17 09:00 104 01/05/17 08:00 98 01/05/17 07:35 94 Nasal Cannula 3.00 01/05/17 07:00 94 01/05/17 07:00 98.6 98 20 111/68 (82) 96 01/05/17 07:00 96 Room Air 01/05/17 06:00 92 01/05/17 05:00 92 01/05/17 04:45 16 01/05/17 04:00 96 01/05/17 03:00 96 01/05/17 03:00 97.9 100 20 125/71 (89) 98 01/05/17 03:00 98 2.00 01/05/17 02:00 102 01/05/17 01:00 96 01/05/17 00:00 98 01/04/17 23:15 95 2.00 01/04/17 23:00 98.4 99 20 123/61 (81) 98 01/04/17 23:00 98 01/04/17 22:00 102 01/04/17 21:00 102 01/04/17 20:00 105 18 113/65 (81) 98 01/04/17 20:00 95 2.00 01/04/17 20:00 108 01/04/17 19:24 95 Nasal Cannula 2.00 01/04/17 19:00 102 01/04/17 18:11 104 01/04/17 17:09 101 01/04/17 16:04 100 01/04/17 15:05 104 01/04/17 15:00 97 Nasal Cannula 2.00 01/04/17 15:00 98.3 101 18 123/71 (88) 97 01/04/17 14:11 104 01/04/17 13:00 94 I/O 01/04/17 01/04/17 01/04/17 01/05/17 01/05/17 01/05/17 07:00 15:00 23:00 07:00 15:00 23:00 Intake Total 480 ml 240 ml 480 ml 720 ml Output Total 1020 ml 80 ml 610 ml 1350 ml Balance -540 ml 160 ml -130 ml -630 ml Intake Oral 480 ml 240 ml 480 ml 720 ml Output Urine Total 900 ml 500 ml 1300 ml Chest Tube Drainage Total 120 ml 80 ml 110 ml 50 ml # Bowel Movements 0 0 0 Result Diagram: 01/05/17 0630 01/05/17 0630 Imaging Last Impressions Chest X-Ray 01/03/17 0500 Signed Impressions: Service Date/Time: Tuesday, January 03, 2017 04:49 - CONCLUSION: Remaining tubes and lines are in good position. Mirza Knight MD Lower Extremity Ultrasound 12/31/16 0000 Signed Impressions: Service Date/Time: Saturday, December 31, 2016 17:14 - CONCLUSION: Venous mapping as described above. Silvio Bernstein MD FACR Carotid Artery Ultrasound 12/31/16 0000 Signed Impressions: Service Date/Time: Saturday, December 31, 2016 16:28 - CONCLUSION: Negative for hemodynamically significant stenosis. Silvio Bernstein MD FACR CT Angiography 12/29/16 0559 Signed Impressions: Service Date/Time: Thursday, December 29, 2016 06:24 - CONCLUSION: Bilateral pleural effusions. Mild basilar atelectasis. No evidence of pulmonary embolism. Mirza Russ MD Objective Remarks GENERAL: NAD SKIN: Warm and dry. HEAD: Normocephalic. EYES: No scleral icterus. No injection or drainage. NECK: Supple, trachea midline. No JVD or lymphadenopathy. CARDIOVASCULAR: Regular rate and rhythm without murmurs, gallops, or rubs. CABG Incision covered. Chest tube in place RESPIRATORY: Breath sounds equal bilaterally. No accessory muscle use. GASTROINTESTINAL: Abdomen soft, non-tender, nondistended. MUSCULOSKELETAL: No cyanosis, or edema. BACK: Nontender without obvious deformity. No CVA tenderness. Procedures Cardiac catheterization December [address] Higgins A/P Problem List: (1) Aortic stenosis, severe ICD Code: I35.0 - Nonrheumatic aortic (valve) stenosis (2) AVR/ CABG x 2 (3) Pulmonary edema ICD Code: J81.1 - Chronic pulmonary edema Status: Acute (4) CAD (coronary artery disease) ICD Code: I25.10 - Atherosclerotic heart disease of [place] coronary artery without angina pectoris Assessment and Plan 61-year-old man with Coronary artery disease Aortic stenosis Started post AVR with CABG 2 Management per cardio thoracic surgery, cardiology And to remove chest tube likely today 01/05/17 Continue aspirin/Lipitor/amiodarone likely beta sunni to be added by cardiology if BP allows Ischemic cardiomyopathy EF 25-30% Management as in above Ander Norton MD Jan 05, 2017 12:31
--- NOTE | 2017-01-05 13:34 | PD.CARD.PN ---
Subjective Subjective Remarks No complaints today Up to the chair Appropriate chest pain along sternotomy Chest tubes removed Objective Medications Current Medications Medications (Trade) Dose Ordered Sig/Elsa Route Start Time Stop Time Status Last Admin (Protonix) 40 mg DAILY PO 12/29/16 11:30 01/05/17 08:20 (Benadryl) 50 mg HS PRN PO 12/29/16 17:30 (Atropine Inj) 0.5 mg UNSCH PRN IV PUSH 12/31/16 09:45 (Aspirin Chew) 81 mg DAILY CHEW 01/01/17 09:00 01/05/17 08:20 (Ambien) 5 mg HS PRN PO 12/31/16 13:30 01/04/17 21:26 (Tylenol) 650 mg Q6H PRN PO 12/31/16 13:30 (Percocet 5-325 Mg) 1 tab Q6H PRN PO 12/31/16 13:30 01/05/17 03:34 (Percocet 10-325 Mg) 1 tab Q6H PRN PO 12/31/16 13:30 01/05/17 08:21 (Narcan Inj) 0.4 mg UNSCH PRN IV PUSH 12/31/16 13:30 (Milk Of Magnesia Liq) 30 ml Q12H PRN PO 12/31/16 13:30 (Senokot) 17.2 mg Q12H PRN PO 12/31/16 13:30 (Lactulose Liq) 30 ml DAILY PRN PO 12/31/16 13:30 (NS Flush) 2 ml BID IV FLUSH 12/31/16 21:00 01/05/17 08:22 (NS Flush) 2 ml UNSCH PRN IV FLUSH 12/31/16 15:45 Papaverine HCl 60 mg/Nitroglycerin 100 mcg/Diltiazem HCl 100 mg/Sodium Chloride 100 ml @ 0 mls/hr UTILITY BILL COMPLAINTS INVESTIGATOR IRRIGATION 12/31/16 15:45 01/07/17 15:44 Cefazolin Sodium 500 mg/Sodium Chloride 505 ml @ 0 mls/hr UTILITY BILL COMPLAINTS INVESTIGATOR IRRIGATION 12/31/16 15:45 01/07/17 15:44 Cefazolin Sodium/ Dextrose 50 ml @ 150 mls/hr UTILITY BILL COMPLAINTS INVESTIGATOR IV 12/31/16 15:45 01/07/17 15:44 (Lopressor) 12.5 mg UTILITY BILL COMPLAINTS INVESTIGATOR PO 12/31/16 15:45 01/07/17 15:44 01/02/17 05:57 (Hibiclens 4% Top Soln) 1 applic UTILITY BILL COMPLAINTS INVESTIGATOR TOPICAL 12/31/16 15:45 01/07/17 15:44 01/02/17 03:53 (Lipitor) 40 mg HS PO 01/01/17 21:00 01/04/17 21:27 Dexmedetomidine HCl 200 mcg/ Sodium Chloride 52 ml @ 4.55 mls/hr TITRATE PRN IV 01/02/17 17:30 01/02/17 15:43 Dopamine HCl/ Dextrose 500 ml @ 16.406 mls/ hr UNSCH PRN IV 01/02/17 14:45 01/02/17 16:31 Phenylephrine HCl 40 mg/Dextrose 500 ml @ 30 mls/hr TITRATE PRN IV 01/02/17 18:00 01/02/17 18:47 Clevidipine 50 ml @ 2 mls/hr TITRATE PRN IV 01/02/17 16:00 Albumin Human 250 ml @ 250 mls/hr UNSCH PRN IV 01/02/17 14:45 Lactated Ringer's 500 ml @ 500 mls/hr Q1H PRN IV 01/02/17 14:38 01/02/17 17:37 (Cordarone) 200 mg Q12HR PO 01/02/17 21:00 01/05/17 08:20 (Tylenol) 650 mg Q4H PRN PO 01/02/17 14:45 (Tylenol Supp) 650 mg Q4H PRN RECTAL 01/02/17 14:45 (fentaNYL INJ) 25 mcg Q1H PRN IV PUSH 01/02/17 14:45 01/04/17 11:04 (Zofran Inj) 4 mg Q6H PRN IV PUSH 01/02/17 14:45 (Apresoline Inj) 10 mg Q4H PRN IV PUSH 01/02/17 14:45 (Lopressor Inj) 2.5 mg Q1H PRN IV PUSH 01/02/17 14:45 Potassium Chloride 100 ml @ 50 mls/hr UNSCH PRN IV 01/02/17 14:45 Potassium Chloride 100 ml @ 50 mls/hr UNSCH PRN IV 01/02/17 14:45 (KCl) 20 meq UNSCH PRN PO 01/02/17 14:45 (KCl) 40 meq UNSCH PRN PO 01/02/17 14:45 Magnesium Sulfate 2 gm/Sodium Chloride 104 ml @ 100 mls/hr UNSCH PRN IV 01/02/17 14:45 Magnesium Sulfate 2 gm/Sodium Chloride 104 ml @ 50 mls/hr UNSCH PRN IV 01/02/17 14:45 Calcium Chloride 1 gm/Sodium Chloride 110 ml @ 100 mls/hr UNSCH PRN IV 01/02/17 14:45 (Calcium Chloride Inj) 0.5 gm UNSCH PRN IV PUSH 01/02/17 14:45 (D50w (Vial) Inj) 50 ml UNSCH PRN IV PUSH 01/02/17 14:45 (Sodium Bicarbonate 8.4% Inj) 50 meq UNSCH PRN IV PUSH 01/02/17 14:45 (Sodium Bicarbonate 8.4% Inj) 100 meq UNSCH PRN IV PUSH 01/02/17 14:45 (Duoneb Neb) 1 ampule Q2HR NEB PRN NEB 01/02/17 14:45 (NovoLOG SUPPLEMENTAL SCALE) 1 Q4H SQ 01/03/17 14:00 01/03/17 22:08 (Duoneb Neb) 1 ampule Q6HR WHILE AWAKE NEB NEB 01/04/17 14:00 01/06/17 13:59 01/05/17 11:21 (Colace) 100 mg BID PO 01/04/17 21:00 01/05/17 08:21 (Theragran M Tab) 1 tab DAILY PO 01/05/17 09:00 01/05/17 08:20 (Milk Of Magnesia Liq) 30 ml DAILY PO 01/05/17 09:00 01/05/17 08:21 (Dulcolax Supp) 10 mg UNSCH PRN RECTAL 01/04/17 10:15 (Miralax) 17 gm DAILY PO 01/05/17 09:00 01/05/17 08:19 (Senokot) 8.6 mg HS PO 01/04/17 21:00 01/04/17 21:26 (Fleets Enema (Adult)) 133 ml UNSCH PRN RECTAL 01/04/17 10:15 (D50w (Vial) Inj) 50 ml UNSCH PRN IV PUSH 01/04/17 10:15 (Glucagon Inj) 1 mg UNSCH PRN OTHER 01/04/17 10:15 Vital Signs / I&O Vital Signs Date Time Temp Pulse Resp B/P (MAP) Pulse Ox O2 Delivery O2 Flow Rate FiO2 01/05/17 12:00 98 01/05/17 11:15 98.6 99 20 103/64 (77) 95 01/05/17 11:15 Room Air 01/05/17 11:00 97 01/05/17 10:00 100 01/05/17 09:40 18 01/05/17 09:00 104 01/05/17 08:00 98 01/05/17 07:35 94 Nasal Cannula 3.00 01/05/17 07:00 94 01/05/17 07:00 98.6 98 20 111/68 (82) 96 01/05/17 07:00 96 Room Air 01/05/17 06:00 92 01/05/17 05:00 92 01/05/17 04:45 16 01/05/17 04:00 96 01/05/17 03:00 96 01/05/17 03:00 97.9 100 20 125/71 (89) 98 01/05/17 03:00 98 2.00 01/05/17 02:00 102 01/05/17 01:00 96 01/05/17 00:00 98 01/04/17 23:15 95 2.00 01/04/17 23:00 98.4 99 20 123/61 (81) 98 01/04/17 23:00 98 01/04/17 22:00 102 01/04/17 21:00 102 01/04/17 20:00 105 18 113/65 (81) 98 01/04/17 20:00 95 2.00 01/04/17 20:00 108 01/04/17 19:24 95 Nasal Cannula 2.00 01/04/17 19:00 102 01/04/17 18:11 104 01/04/17 17:09 101 01/04/17 16:04 100 01/04/17 15:05 104 01/04/17 15:00 97 Nasal Cannula 2.00 01/04/17 15:00 98.3 101 18 123/71 (88) 97 01/04/17 14:11 104 I/O 01/04/17 01/04/17 01/04/17 01/05/17 01/05/17 01/05/17 07:00 15:00 23:00 07:00 15:00 23:00 Intake Total 480 ml 240 ml 480 ml 720 ml Output Total 1020 ml 80 ml 610 ml 1350 ml Balance -540 ml 160 ml -130 ml -630 ml Intake Oral 480 ml 240 ml 480 ml 720 ml Output Urine Total 900 ml 500 ml 1300 ml Chest Tube Drainage Total 120 ml 80 ml 110 ml 50 ml # Bowel Movements 0 0 0 Physical Exam GENERAL: NAD, AAOx3 SKIN: Warm and dry. HEAD: Atraumatic. Normocephalic. EYES: Pupils equal and round. No scleral icterus. No injection or drainage. ENT: No nasal bleeding or discharge. Mucous membranes pink and moist. NECK: Trachea midline. No JVD. CARDIOVASCULAR: Regular rate and rhythm. Sternotomy with wound vac RESPIRATORY: No accessory muscle use. Clear to auscultation. Breath sounds equal bilaterally. GASTROINTESTINAL: Abdomen soft, non-tender, nondistended. Hepatic and splenic margins not palpable. MUSCULOSKELETAL: Extremities without clubbing, cyanosis, or edema. No obvious deformities. NEUROLOGICAL: Awake and alert. No obvious cranial nerve deficits. Motor grossly within normal limits. Five out of 5 muscle strength in the arms and legs. Normal speech. PSYCHIATRIC: Appropriate mood and affect; insight and judgment normal. Laboratory Laboratory Tests Test 01/05/17 06:30 White Blood Count 7.9 TH/MM3 Red Blood Count 3.56 MIL/MM3 Hemoglobin 10.4 GM/DL Hematocrit 30.9 % Mean Corpuscular Volume 86.8 FL Mean Corpuscular Hemoglobin 29.1 PG Mean Corpuscular Hemoglobin Concent 33.5 % Red Cell Distribution Width 14.8 % Platelet Count 113 TH/MM3 Mean Platelet Volume 8.0 FL Neutrophils (%) (Auto) 78.1 % Lymphocytes (%) (Auto) 12.5 % Monocytes (%) (Auto) 8.3 % Eosinophils (%) (Auto) 0.7 % Basophils (%) (Auto) 0.4 % Neutrophils # (Auto) 6.2 TH/MM3 Lymphocytes # (Auto) 1.0 TH/MM3 Monocytes # (Auto) 0.7 TH/MM3 Eosinophils # (Auto) 0.1 TH/MM3 Basophils # (Auto) 0.0 TH/MM3 CBC Comment DIFF FINAL Differential Comment Blood Urea Nitrogen 13 MG/DL Creatinine 0.77 MG/DL Random Glucose 104 MG/DL Calcium Level 8.4 MG/DL Magnesium Level 2.0 MG/DL Sodium Level 137 MEQ/L Potassium Level 4.3 MEQ/L Chloride Level 104 MEQ/L Carbon Dioxide Level 27.5 MEQ/L Anion Gap 6 MEQ/L Estimat Glomerular Filtration Rate 103 ML/MIN Assessment and Plan Problem List: (1) Aortic stenosis, severe ICD Codes: I35.0 - Nonrheumatic aortic (valve) stenosis (2) CAD (coronary artery disease) ICD Codes: I25.10 - Atherosclerotic heart disease of [place] coronary artery without angina pectoris (3) Pulmonary edema ICD Codes: J81.1 - Chronic pulmonary edema Status: Acute (4) AVR/ CABG x 2 Assessment and Plan 1) /CAD s/p AVR with CABGx2 POD #3 25mm Intuity tissue valve SAENZ to LAD SVG to RCA 2) EF 25-30% pre-operatively In the procedure, appeared to be greater 3) ASA/Lipitor/Amio 4) Will start low dose BB with holds for BP Al Payne DO Jan 05, 2017 13:34
--- NOTE | 2017-01-05 18:19 | PD.CAR.PN ---
CVT Progress Note Subjective/Hospital Course: 61-year-old male, presented to the emergency room for several day history of dyspnea on exertion, and shortness of breath per the son who is a retread mold operator. He says his father has been short of breath for a few months. Apparently two months ago he was at a local store and had a questionable seizure episode. A bystander said it was more like a generalized tonic clonic, fell on his head, had a laceration on the back of his head, had 21 rosalba. They also said he bit his tongue but he did not have any urinary or bowel incontinence. There was no focal weakness or numbness of the extremities. No prior history of illicit drug use. They did a CT at that time in September which showed some maxillary sinus air fluid levels. No evidence of skull fracture. No midline shift, mass lesions, hemorrhage or acute infarct. Pt underwent underwent cardiac catheterization which showed left main disease at 20%, mid distal LAD 80 %, the RCA was 80%. echocardiogram showed an EF of 25 to 30%, some mildly dilated left ventricle, global left ventricular dysfunction, some mild mitral regurgitation, possible bicuspid aortic valve with severe aortic valve stenosis, peak gradient of 71, mean gradient of 45 with aortic valve area 0.5, some trace aortic insufficiency. were consulted to evaluate for aortic valve replacement and coronary artery bypass grafting x2. PMH: no MD follow up in many years, disabled 2/2 prior work accident with back injury and surgery C spine and lower back 01/01 pt denies having any chest pain pt on ASA, statin no BB 2/2 labile BP plan is fvery AVR tissue valve and CABG x 2 in am 01/03/17 No complaints. Remains on dopamine and LISA which are being weaned. 01/04 Nauseated. Otherwise doing well Maintain CT to drainage Transfer [facility] 01/05 BP stable, started on low dose BB chest tube dc without difficulty on room air eval for dc in am Objective: GENERAL: SKIN: Warm and dry. prevena dressing to chest HEAD: Normocephalic. EYES: No scleral icterus. No injection or drainage. NECK: Supple, trachea midline. No JVD or lymphadenopathy. CARDIOVASCULAR: Regular rate and rhythm without murmurs, gallops, or rubs. RESPIRATORY: Breath sounds equal bilaterally. No accessory muscle use. GASTROINTESTINAL: Abdomen soft, non-tender, nondistended. MUSCULOSKELETAL: No cyanosis, or edema. BACK: Nontender without obvious deformity. No CVA tenderness. Vital Signs Date Time Temp Pulse Resp B/P (MAP) Pulse Ox O2 Delivery O2 Flow Rate FiO2 01/05/17 17:00 74 01/05/17 16:00 72 01/05/17 16:00 20 01/05/17 15:10 96 01/05/17 15:10 98.6 96 20 112/69 (83) 98 01/05/17 15:10 Room Air 01/05/17 14:00 96 01/05/17 13:00 102 01/05/17 12:00 98 01/05/17 11:15 98.6 99 20 103/64 (77) 95 01/05/17 11:15 Room Air 01/05/17 11:00 97 01/05/17 10:00 100 01/05/17 09:40 18 01/05/17 09:00 104 01/05/17 08:00 98 01/05/17 07:35 94 Nasal Cannula 3.00 01/05/17 07:00 94 01/05/17 07:00 98.6 98 20 111/68 (82) 96 01/05/17 07:00 96 Room Air 01/05/17 06:00 92 01/05/17 05:00 92 01/05/17 04:00 96 01/05/17 03:00 96 01/05/17 03:00 97.9 100 20 125/71 (89) 98 01/05/17 03:00 98 2.00 01/05/17 02:00 102 01/05/17 01:00 96 01/05/17 00:00 98 01/04/17 23:15 95 2.00 01/04/17 23:00 98.4 99 20 123/61 (81) 98 01/04/17 23:00 98 01/04/17 22:00 102 01/04/17 21:00 102 01/04/17 20:00 105 18 113/65 (81) 98 01/04/17 20:00 95 2.00 01/04/17 20:00 108 01/04/17 19:24 95 Nasal Cannula 2.00 01/04/17 19:00 102 Labs: Laboratory Tests Test 01/05/17 06:30 White Blood Count 7.9 TH/MM3 (4.0-11.0) Red Blood Count 3.56 MIL/MM3 (4.50-5.90) Hemoglobin 10.4 GM/DL (13.0-17.0) Hematocrit 30.9 % (39.0-51.0) Mean Corpuscular Volume 86.8 FL (80.0-100.0) Mean Corpuscular Hemoglobin 29.1 PG (27.0-34.0) Mean Corpuscular Hemoglobin Concent 33.5 % (32.0-36.0) Red Cell Distribution Width 14.8 % (11.6-17.2) Platelet Count 113 TH/MM3 (150-450) Mean Platelet Volume 8.0 FL (7.0-11.0) Neutrophils (%) (Auto) 78.1 % (16.0-70.0) Lymphocytes (%) (Auto) 12.5 % (9.0-44.0) Monocytes (%) (Auto) 8.3 % (0.0-8.0) Eosinophils (%) (Auto) 0.7 % (0.0-4.0) Basophils (%) (Auto) 0.4 % (0.0-2.0) Neutrophils # (Auto) 6.2 TH/MM3 (1.8-7.7) Lymphocytes # (Auto) 1.0 TH/MM3 (1.0-4.8) Monocytes # (Auto) 0.7 TH/MM3 (0-0.9) Eosinophils # (Auto) 0.1 TH/MM3 (0-0.4) Basophils # (Auto) 0.0 TH/MM3 (0-0.2) CBC Comment DIFF FINAL Differential Comment Blood Urea Nitrogen 13 MG/DL (7-18) Creatinine 0.77 MG/DL (0.60-1.30) Random Glucose 104 MG/DL (74-106) Calcium Level 8.4 MG/DL (8.5-10.1) Magnesium Level 2.0 MG/DL (1.5-2.5) Sodium Level 137 MEQ/L (136-145) Potassium Level 4.3 MEQ/L (3.5-5.1) Chloride Level 104 MEQ/L (98-107) Carbon Dioxide Level 27.5 MEQ/L (21.0-32.0) Anion Gap 6 MEQ/L (5-15) Estimat Glomerular Filtration Rate 103 ML/MIN (>89) Result Diagram: 01/05/1762901/05/17629 (1) Aortic stenosis, severe (2) CAD (coronary artery disease) (3) AVR/ CABG x 2 Plan: ASA, statin , BB OOB, ambulate pulm toileting eval for dc in am Lilia Vega Jan 05, 2017 18:19
[2017-01-05] MEDS ORDERED: MAGNESIUM SULFATE 1 GM PREMIX 100 ML IV ONE (18:30)
[2017-01-05] MEDS: METOPROLOL TARTRATE 25 MG TAB PO SCH (20:30)
[2017-01-05] MEDS: ZOLPIDEM TARTRATE 5 MG TAB PO PRN (20:31)
[2017-01-05] MEDS: SENNOSIDES 8.6 MG TAB PO SCH (20:31)
[2017-01-05] MEDS: ATORVASTATIN 40 MG TAB PO SCH (20:31)
[2017-01-06] VITALS (21 sets, daily range): BP systolic 104–118; BP diastolic 60–78; PULSE 84–97; RESP 18–20; TEMP 97.5–98.6; O2SAT 95–96
[2017-01-06] MEDS: INDIVIDUALIZED INSULIN NOVOLOG SUPPLEMENTAL SCALE SQ SCH ×2 (02:00→05:15)
--- NOTE | 2017-01-06 06:14 | RADRPT ---
EXAM DATE/TIME: 01/06/2017 04:52 [facility] COMPARISON: CHEST SINGLE AP, January 03, 2017, 4:49. INDICATIONS : Short of breath. MEDICAL HISTORY : None. SURGICAL HISTORY : Tonsillectomy. Discectomy, cervical. CABG. ENCOUNTER: Subsequent ACUITY: 1 week PAIN SCORE: 0/10 LOCATION: Bilateral chest FINDINGS: The cardiac silhouette is normal in transverse diameter. Median sternotomy wires are present. The jael st tube has been removed. There is no evidence of pneumothorax. There is subsegmental atelectasis in the left base. CONCLUSION: 1. There is no evidence of pneumothorax. Subsegmental atelectasis left base.8 Ashutosh Moe MD on January 06, 2017 at 6:11 Board Certified Radiologist. This report was verified electronically.
[2017-01-06] MEDS: RESP: ALBUTEROL 2.5 MG/IPRATROPIUM 0.5 MG NEB (SCH) NEB (08:14)
[2017-01-06] MEDS: DOCUSATE SODIUM 100 MG CAP PO SCH (08:34)
[2017-01-06] MEDS: MULTIVITAMINS/MINERALS THERAPEUTIC TAB PO SCH (08:34)
[2017-01-06] MEDS: MAGNESIUM HYDROXIDE SUSP 30 ML CUP PO SCH (08:34)
[2017-01-06] MEDS: AMIODARONE 200 MG TAB PO SCH (08:35)
[2017-01-06] MEDS: METOPROLOL TARTRATE 25 MG TAB PO SCH (08:35)
[2017-01-06] MEDS: PANTOPRAZOLE SOD 40 MG DELAYED RELEASE TAB PO SCH (08:35)
[2017-01-06] MEDS: ASPIRIN 81 MG CHEW TAB CHEW SCH (08:54)
[2017-01-06] MEDS: SODIUM CHLORIDE 0.9% FLUSH 10 ML FLUSH IV FLUSH SCH (08:54)
[2017-01-06] MEDS: POLYETHYLENE GLYCOL 17 GM PKG PO SCH (08:54)
--- NOTE | 2017-01-06 09:17 | HHI.PR ---
Subjective Remarks Follow-up severe aortic stenosis/CAD/status post CABG 01/05/17-patient seen and examined, pain currently controlled. Denies any significant shortness of breath and currently afebrile 01/06/17-patient seen and examined; his chest tube was discontinued this morning. No acute event overnight. Objective Vitals Vital Signs Date Time Temp Pulse Resp B/P (MAP) Pulse Ox O2 Delivery O2 Flow Rate FiO2 01/06/17 08:17 96 01/06/17 07:20 98.3 97 18 108/60 (76) 95 01/06/17 07:06 88 01/06/17 07:06 Room Air 21 01/06/17 06:02 92 01/06/17 05:17 93 01/06/17 04:04 89 01/06/17 03:44 97.5 92 104/66 (79) 96 01/06/17 03:44 Room Air 01/06/17 03:00 91 01/06/17 02:00 92 01/06/17 01:05 95 01/06/17 00:00 97 01/05/17 23:34 97 01/05/17 23:23 Room Air 01/05/17 23:23 98.3 97 96/64 (75) 95 01/05/17 22:00 98 01/05/17 21:00 98 01/05/17 20:45 97 21 01/05/17 20:00 101 01/05/17 20:00 98 01/05/17 20:00 Room Air 01/05/17 20:00 98.5 97 116/72 (87) 95 01/05/17 18:00 102 01/05/17 17:00 74 01/05/17 16:00 72 01/05/17 16:00 20 01/05/17 15:10 96 01/05/17 15:10 98.6 96 20 112/69 (83) 98 01/05/17 15:10 Room Air 01/05/17 14:00 96 01/05/17 13:00 102 01/05/17 12:00 98 01/05/17 11:15 98.6 99 20 103/64 (77) 95 01/05/17 11:15 Room Air 01/05/17 11:00 97 01/05/17 10:00 100 01/05/17 09:40 18 I/O 01/05/17 01/05/17 01/05/17 01/06/17 01/06/17 01/06/17 07:00 15:00 23:00 07:00 15:00 23:00 Intake Total 720 ml 900 ml 240 ml Output Total 1350 ml 500 ml 875 ml Balance -630 ml 400 ml -635 ml Intake Oral 720 ml 800 ml 240 ml IV Total 100 ml Output Urine Total 1300 ml 500 ml 875 ml Stool Total 0 ml Chest Tube Drainage Total 50 ml # Voids 1 Result Diagram: 01/05/17 0630 01/05/17 0630 Imaging Last Impressions Chest X-Ray 01/06/17 06 Signed Impressions: Service Date/Time: Friday, January 06, 2017 04:52 - CONCLUSION: 1. There is no evidence of pneumothorax. Subsegmental atelectasis left base.8 Ashutosh Moe MD Lower Extremity Ultrasound 12/31/16 0000 Signed Impressions: Service Date/Time: Saturday, December 31, 2016 17:14 - CONCLUSION: Venous mapping as described above. Silvio Bernstein MD FACR Carotid Artery Ultrasound 12/31/16 0000 Signed Impressions: Service Date/Time: Saturday, December 31, 2016 16:28 - CONCLUSION: Negative for hemodynamically significant stenosis. Silvio Bernstein MD FACR CT Angiography 12/29/16 0559 Signed Impressions: Service Date/Time: Thursday, December 29, 2016 06:24 - CONCLUSION: Bilateral pleural effusions. Mild basilar atelectasis. No evidence of pulmonary embolism. Mirza Russ MD Objective Remarks GENERAL: NAD SKIN: Warm and dry. HEAD: Normocephalic. EYES: No scleral icterus. No injection or drainage. NECK: Supple, trachea midline. No JVD or lymphadenopathy. CARDIOVASCULAR: Regular rate and rhythm without murmurs, gallops, or rubs. CABG Incision covered. RESPIRATORY: Breath sounds equal bilaterally. No accessory muscle use. GASTROINTESTINAL: Abdomen soft, non-tender, nondistended. MUSCULOSKELETAL: No cyanosis, or edema. BACK: Nontender without obvious deformity. No CVA tenderness. Procedures Cardiac catheterization December [address] Higgins Procedure 01/02/17 AVR with a 25 Intuity tissue valve CABG x 2 A/P Problem List: (1) Aortic stenosis, severe ICD Code: I35.0 - Nonrheumatic aortic (valve) stenosis (2) AVR/ CABG x 2 (3) Pulmonary edema ICD Code: J81.1 - Chronic pulmonary edema Status: Acute (4) CAD (coronary artery disease) ICD Code: I25.10 - Atherosclerotic heart disease of [place] coronary artery without angina pectoris Assessment and Plan 61-year-old man with Coronary artery disease Aortic stenosis Status post AVR with CABG 2 Management per cardio thoracic surgery, cardiology chest tube removed today 01/06/17 Continue aspirin/Lipitor/amiodarone . Add beta sunni if blood pressure allows Ischemic cardiomyopathy EF 25-30% Management as in above DVT prophylaxis: Bilateral SCDs Ander Norton MD Jan 06, 2017 09:17
[2017-01-06] MEDS: oxyCODONE/ACETAMINOPHEN 5 MG/325 MG TAB PO PRN (10:19)
--- NOTE | 2017-01-06 16:09 | PD.CARD.PN ---
Subjective Subjective Remarks No complaints today Up to the chair, ambulating Appropriate chest pain along sternotomy Chest tubes removed Objective Medications Current Medications Medications (Trade) Dose Ordered Sig/Elsa Route Start Time Stop Time Status Last Admin (Protonix) 40 mg DAILY PO 12/29/16 11:30 01/06/17 08:35 (Benadryl) 50 mg HS PRN PO 12/29/16 17:30 (Atropine Inj) 0.5 mg UNSCH PRN IV PUSH 12/31/16 09:45 (Aspirin Chew) 81 mg DAILY CHEW 01/01/17 09:00 01/06/17 08:54 (Ambien) 5 mg HS PRN PO 12/31/16 13:30 01/05/17 20:31 (Tylenol) 650 mg Q6H PRN PO 12/31/16 13:30 (Percocet 5-325 Mg) 1 tab Q6H PRN PO 12/31/16 13:30 01/06/17 10:19 (Percocet 10-325 Mg) 1 tab Q6H PRN PO 12/31/16 13:30 01/05/17 23:04 (Narcan Inj) 0.4 mg UNSCH PRN IV PUSH 12/31/16 13:30 (Milk Of Magnesia Liq) 30 ml Q12H PRN PO 12/31/16 13:30 (Senokot) 17.2 mg Q12H PRN PO 12/31/16 13:30 (Lactulose Liq) 30 ml DAILY PRN PO 12/31/16 13:30 (NS Flush) 2 ml BID IV FLUSH 12/31/16 21:00 01/06/17 08:54 (NS Flush) 2 ml UNSCH PRN IV FLUSH 12/31/16 15:45 Papaverine HCl 60 mg/Nitroglycerin 100 mcg/Diltiazem HCl 100 mg/Sodium Chloride 100 ml @ 0 mls/hr [employer]IST IRRIGATION 12/31/16 15:45 01/07/17 15:44 Cefazolin Sodium 500 mg/Sodium Chloride 505 ml @ 0 mls/hr [employer]IST IRRIGATION 12/31/16 15:45 01/07/17 15:44 Cefazolin Sodium/ Dextrose 50 ml @ 150 mls/hr [employer]IST IV 12/31/16 15:45 01/07/17 15:44 (Lopressor) 12.5 mg [employer]IST PO 12/31/16 15:45 01/07/17 15:44 01/02/17 05:57 (Hibiclens 4% Top Soln) 1 applic [employer]IST TOPICAL 12/31/16 15:45 01/07/17 15:44 01/02/17 03:53 (Lipitor) 40 mg HS PO 01/01/17 21:00 01/05/17 20:31 Dexmedetomidine HCl 200 mcg/ Sodium Chloride 52 ml @ 4.55 mls/hr TITRATE PRN IV 01/02/17 17:30 01/02/17 15:43 Dopamine HCl/ Dextrose 500 ml @ 16.406 mls/ hr UNSCH PRN IV 01/02/17 14:45 01/02/17 16:31 Phenylephrine HCl 40 mg/Dextrose 500 ml @ 30 mls/hr TITRATE PRN IV 01/02/17 18:00 01/02/17 18:47 Clevidipine 50 ml @ 2 mls/hr TITRATE PRN IV 01/02/17 16:00 Albumin Human 250 ml @ 250 mls/hr UNSCH PRN IV 01/02/17 14:45 Lactated Ringer's 500 ml @ 500 mls/hr Q1H PRN IV 01/02/17 14:38 01/02/17 17:37 (Cordarone) 200 mg Q12HR PO 01/02/17 21:00 01/06/17 08:35 (Tylenol) 650 mg Q4H PRN PO 01/02/17 14:45 (Tylenol Supp) 650 mg Q4H PRN RECTAL 01/02/17 14:45 (fentaNYL INJ) 25 mcg Q1H PRN IV PUSH 01/02/17 14:45 01/04/17 11:04 (Zofran Inj) 4 mg Q6H PRN IV PUSH 01/02/17 14:45 (Apresoline Inj) 10 mg Q4H PRN IV PUSH 01/02/17 14:45 (Lopressor Inj) 2.5 mg Q1H PRN IV PUSH 01/02/17 14:45 Potassium Chloride 100 ml @ 50 mls/hr UNSCH PRN IV 01/02/17 14:45 Potassium Chloride 100 ml @ 50 mls/hr UNSCH PRN IV 01/02/17 14:45 (KCl) 20 meq UNSCH PRN PO 01/02/17 14:45 (KCl) 40 meq UNSCH PRN PO 01/02/17 14:45 Magnesium Sulfate 2 gm/Sodium Chloride 104 ml @ 100 mls/hr UNSCH PRN IV 01/02/17 14:45 Magnesium Sulfate 2 gm/Sodium Chloride 104 ml @ 50 mls/hr UNSCH PRN IV 01/02/17 14:45 Calcium Chloride 1 gm/Sodium Chloride 110 ml @ 100 mls/hr UNSCH PRN IV 01/02/17 14:45 (Calcium Chloride Inj) 0.5 gm UNSCH PRN IV PUSH 01/02/17 14:45 (D50w (Vial) Inj) 50 ml UNSCH PRN IV PUSH 01/02/17 14:45 (Sodium Bicarbonate 8.4% Inj) 50 meq UNSCH PRN IV PUSH 01/02/17 14:45 (Sodium Bicarbonate 8.4% Inj) 100 meq UNSCH PRN IV PUSH 01/02/17 14:45 (Duoneb Neb) 1 ampule Q2HR NEB PRN NEB 01/02/17 14:45 (Colace) 100 mg BID PO 01/04/17 21:00 01/06/17 08:34 (Theragran M Tab) 1 tab DAILY PO 01/05/17 09:00 01/06/17 08:34 (Milk Of Magnesia Liq) 30 ml DAILY PO 01/05/17 09:00 01/06/17 08:34 (Miralax) 17 gm DAILY PO 01/05/17 09:00 01/06/17 08:54 (Senokot) 8.6 mg HS PO 01/04/17 21:00 01/05/17 20:31 (Fleets Enema (Adult)) 133 ml UNSCH PRN RECTAL 01/04/17 10:15 (D50w (Vial) Inj) 50 ml UNSCH PRN IV PUSH 01/04/17 10:15 (Glucagon Inj) 1 mg UNSCH PRN OTHER 01/04/17 10:15 (Lopressor) 12.5 mg Q12HR PO 01/05/17 21:00 01/06/17 08:35 Vital Signs / I&O Vital Signs Date Time Temp Pulse Resp B/P (MAP) Pulse Ox O2 Delivery O2 Flow Rate FiO2 01/06/17 15:00 98.6 89 20 118/78 (91) 96 01/06/17 15:00 Room Air 01/06/17 15:00 84 01/06/17 14:00 86 01/06/17 13:00 90 01/06/17 12:00 88 01/06/17 11:25 20 01/06/17 11:10 98.5 89 18 109/72 (84) 96 01/06/17 11:10 Room Air 01/06/17 11:00 86 01/06/17 10:00 92 01/06/17 09:00 92 01/06/17 08:17 96 01/06/17 08:00 92 01/06/17 07:20 98.3 97 18 108/60 (76) 95 01/06/17 07:06 88 01/06/17 07:06 Room Air 21 01/06/17 06:02 92 01/06/17 05:17 93 01/06/17 04:04 89 01/06/17 03:44 97.5 92 104/66 (79) 96 01/06/17 03:44 Room Air 01/06/17 03:00 91 01/06/17 02:00 92 01/06/17 01:05 95 01/06/17 00:00 97 01/05/17 23:34 97 01/05/17 23:23 Room Air 01/05/17 23:23 98.3 97 96/64 (75) 95 01/05/17 22:00 98 01/05/17 21:00 98 01/05/17 20:45 97 21 01/05/17 20:00 101 01/05/17 20:00 98 01/05/17 20:00 Room Air 01/05/17 20:00 98.5 97 116/72 (87) 95 01/05/17 18:00 102 01/05/17 17:00 74 I/O 01/05/17 01/05/17 01/05/17 01/06/17 01/06/17 01/06/17 07:00 15:00 23:00 07:00 15:00 23:00 Intake Total 720 ml 900 ml 240 ml Output Total 1350 ml 500 ml 875 ml Balance -630 ml 400 ml -635 ml Intake Oral 720 ml 800 ml 240 ml IV Total 100 ml Output Urine Total 1300 ml 500 ml 875 ml Stool Total 0 ml Chest Tube Drainage Total 50 ml # Voids 1 Physical Exam GENERAL: NAD, AAOx3 SKIN: Warm and dry. HEAD: Atraumatic. Normocephalic. EYES: Pupils equal and round. No scleral icterus. No injection or drainage. ENT: No nasal bleeding or discharge. Mucous membranes pink and moist. NECK: Trachea midline. No JVD. CARDIOVASCULAR: Regular rate and rhythm. Sternotomy with wound vac RESPIRATORY: No accessory muscle use. Clear to auscultation. Breath sounds equal bilaterally. GASTROINTESTINAL: Abdomen soft, non-tender, nondistended. Hepatic and splenic margins not palpable. MUSCULOSKELETAL: Extremities without clubbing, cyanosis, or edema. No obvious deformities. NEUROLOGICAL: Awake and alert. No obvious cranial nerve deficits. Motor grossly within normal limits. Five out of 5 muscle strength in the arms and legs. Normal speech. PSYCHIATRIC: Appropriate mood and affect; insight and judgment normal. Imaging Last 24 hours Impressions Chest X-Ray 01/06/17 0600 Signed Impressions: Service Date/Time: Friday, January 06, 2017 04:52 - CONCLUSION: 1. There is no evidence of pneumothorax. Subsegmental atelectasis left base.8 Ashutosh Moe MD Assessment and Plan Problem List: (1) Aortic stenosis, severe ICD Codes: I35.0 - Nonrheumatic aortic (valve) stenosis (2) CAD (coronary artery disease) ICD Codes: I25.10 - Atherosclerotic heart disease of [place] coronary artery without angina pectoris (3) AVR/ CABG x 2 Assessment and Plan 1) /CAD s/p AVR with CABGx2 POD #4 25mm Intuity tissue valve SAENZ to LAD SVG to RCA 2) EF 25-30% pre-operatively In the procedure, appeared to be greater 3) ASA/Lipitor/Amio/BB 4) Possible discharge today 5) Will follow up in the office with me in 2-3 weeks Al Payne DO Jan 06, 2017 16:09
[2017-01-06] MEDS ORDERED: ATOR40TA16 PO (16:48)
[2017-01-06] MEDS ORDERED: POLY17S PO (16:48)
[2017-01-06] MEDS ORDERED: METO25TA3 PO (16:48)
[2017-01-06] MEDS ORDERED: THERM PO (16:48)
[2017-01-06] MEDS ORDERED: OXYC1TAB63 PO (16:48)
[2017-01-06] MEDS ORDERED: ASPI81CH25 CHEW (16:48)
[2017-01-06] MEDS ORDERED: AMIO200T PO (16:48)
[2017-01-06] MEDS ORDERED: DOCU1CAP39 PO (16:48)
--- NOTE | 2017-01-06 16:54 | HHI.DS ---
Discharge Summary Admission Date Dec 30, 2016 at 11:54 Discharge Date: Jan 06, 2017 Admitting Diagnosis CHF new-onset/elevated troponin (1) Aortic stenosis, severe Diagnosis: Principal ICD Codes: I35.0 - Nonrheumatic aortic (valve) stenosis Status: Chronic (2) AVR/ CABG x 2 Diagnosis: Secondary Status: Acute (3) Pulmonary edema Diagnosis: Principal ICD Codes: J81.1 - Chronic pulmonary edema Status: Resolved (4) CAD (coronary artery disease) Diagnosis: Principal ICD Codes: I25.10 - Atherosclerotic heart disease of [place] coronary artery without angina pectoris Status: Acute Procedures AVR with a 25 Intuity tissue valve CABG x 2 SAENZ to LAD - good SVG to RCA - good EV 01/02 Brief History 61-year-old male, presented to the emergency room for several day history of dyspnea on exertion, and shortness of breath per the son who is a flower shop manager. He says his father has been short of breath for a few months. Apparently two months ago he was at a local store and had a questionable seizure episode. A bystander said it was more like a generalized tonic clonic, fell on his head, had a laceration on the back of his head, had 21 rosalba. They also said he bit his tongue but he did not have any urinary or bowel incontinence. There was no focal weakness or numbness of the extremities. No prior history of illicit drug use. They did a CT at that time in September which showed some maxillary sinus air fluid levels. No evidence of skull fracture. No midline shift, mass lesions, hemorrhage or acute infarct. Pt underwent underwent cardiac catheterization which showed left main disease at 20%, mid distal LAD 80 %, the RCA was 80%. echocardiogram showed an EF of 25 to 30%, some mildly dilated left ventricle, global left ventricular dysfunction, some mild mitral regurgitation, possible bicuspid aortic valve with severe aortic valve stenosis, peak gradient of 71, mean gradient of 45 with aortic valve area 0.5, some trace aortic insufficiency. were consulted to evaluate for aortic valve replacement and coronary artery bypass grafting x2. PMH: no MD follow up in many years, disabled 2/2 prior work accident with back injury and surgery C spine and lower back CBC/BMP: 01/05/17 0630 01/05/17 0630 Significant Findings Laboratory Tests Test 01/04/17 04:13 01/05/17 06:30 Red Blood Count 3.57 MIL/MM3 (4.50-5.90) 3.56 MIL/MM3 (4.50-5.90) Hemoglobin 10.6 GM/DL (13.0-17.0) 10.4 GM/DL (13.0-17.0) Hematocrit 31.2 % (39.0-51.0) 30.9 % (39.0-51.0) Platelet Count 121 TH/MM3 (150-450) 113 TH/MM3 (150-450) Neutrophils (%) (Auto) 76.5 % (16.0-70.0) 78.1 % (16.0-70.0) Monocytes (%) (Auto) 9.8 % (0.0-8.0) 8.3 % (0.0-8.0) Monocytes # (Auto) 1.0 TH/MM3 (0-0.9) Blood Urea Nitrogen 23 MG/DL (7-18) Total Protein 5.4 GM/DL (6.4-8.2) Calcium Level 7.4 MG/DL (8.5-10.1) 8.4 MG/DL (8.5-10.1) Sodium Level 134 MEQ/L (136-145) Estimat Glomerular Filtration Rate 87 ML/MIN (>89) Protein Corrected Calcium 8.3 MG/DL (8.5-10.1) Imaging Last Impressions Chest X-Ray 01/06/17 0600 Signed Impressions: Service Date/Time: Friday, January 06, 2017 04:52 - CONCLUSION: 1. There is no evidence of pneumothorax. Subsegmental atelectasis left base.8 Ashutosh Moe MD Lower Extremity Ultrasound 12/31/16 0000 Signed Impressions: Service Date/Time: Saturday, December 31, 2016 17:14 - CONCLUSION: Venous mapping as described above. Silvio Bernstein MD FACR Carotid Artery Ultrasound 12/31/16 0000 Signed Impressions: Service Date/Time: Saturday, December 31, 2016 16:28 - CONCLUSION: Negative for hemodynamically significant stenosis. Silvio Bernstein MD FACR CT Angiography 12/29/16 0559 Signed Impressions: Service Date/Time: Thursday, December 29, 2016 06:24 - CONCLUSION: Bilateral pleural effusions. Mild basilar atelectasis. No evidence of pulmonary embolism. Mirza Russ MD PE at Discharge GENERAL: SKIN: Warm and dry. prevena dressing to chest, incision intact to leg HEAD: Normocephalic. EYES: No scleral icterus. No injection or drainage. NECK: Supple, trachea midline. No JVD or lymphadenopathy. CARDIOVASCULAR: Regular rate and rhythm without murmurs, gallops, or rubs. RESPIRATORY: Breath sounds equal bilaterally. No accessory muscle use. GASTROINTESTINAL: Abdomen soft, non-tender, nondistended. MUSCULOSKELETAL: No cyanosis, or edema. BACK: Nontender without obvious deformity. No CVA tenderness. Hospital Course 01/01 pt denies having any chest pain pt on ASA, statin no BB 2/2 labile BP plan is fvery AVR tissue valve and CABG x 2 in am 01/03/17 No complaints. Remains on dopamine and LISA which are being weaned. 01/04 Nauseated. Otherwise doing well Maintain CT to drainage Transfer [facility] 01/05 BP stable, started on low dose BB chest tube dc without difficulty on room air eval for dc in am 01/06 no JAMES inhibitor 2/2 labile BP on BB statin , ASA , amiodarone stable for dc home today + BM on room air Pt Condition on Discharge: Good Discharge Disposition: Disch w/ Home Health Serv Discharge Instructions DIET: Follow Instructions for: Heart Healthy Diet, Low Sodium Diet Activities you can perform: Full Weight Bearing, Shower Only-No Bath Activities to avoid: Driving Additional Activity Instructio: no lifting > 8 lbs or gallon of milk Follow up Referrals: Appointment for Follow Up Appointment for Follow Up New Orders: 2D ECHO - 2 Weeks BASIC METABOLIC PROF - 2 Weeks CBC NO DIFF - 2 Weeks X-RAY CHEST PA & LAT - 2 Weeks New Medications: Amiodarone (Amiodarone) 200 Mg Tab 200 MG PO Q12HR for heart rhythm, #28 TAB 0 Refills Aspirin (Aspirin Low Strength) 81 Mg Chew 81 MG CHEW DAILY for Blood Clot Prevention, #30 EA 2 Refills Atorvastatin (Atorvastatin) 40 Mg Tab 40 MG PO HS for Cholesterol Management, #30 TAB 2 Refills Docusate Sodium (Dok) 100 Mg Cap 100 MG PO BID for Constipation, #60 CAP 0 Refills Metoprolol Tartrate (Metoprolol Tartrate) 25 Mg Tab 12.5 MG PO Q12HR for Blood Pressure Management, #60 TAB 2 Refills Multiple Vitamins W/ Minerals (Thera M Plus) 1 Tab 1 TAB PO DAILY for multi vitamin, #30 TAB 2 Refills Oxycodone-Acetaminophen (Oxycodone-Acetaminophen) 5-325 mg Tab 1 TAB PO Q4H PRN for PAIN SCALE 3 TO 5, #40 TAB 0 Refills Polyethylene Glycol 3350 Powder (Polyethylene Glycol 3350 Powder) 17 Gram Pow 17 GM PO DAILY for Constipation, #30 PACKET Lilia Vega Jan 06, 2017 16:54
== END 2017-01-06 17:15 | disposition home health service (06) | DRG 216 ==
LOC: PHED 04:52 → PHEDA 07:08 → PH3B 07:55 → OBSVTOIN 12-30 11:54 → HCPC 12-30 20:41 → HCIS 01-02 10:00 → HCVI 01-02 15:50 → HCPC 01-04 12:13
PROVIDERS: ADMIT Hospitalist; ATTEND Hospitalist
PROC: 021009W Bypass Coronary Artery, One Artery from Aorta with Autologous Venous Tissue, Open Approach (ICD-10-PCS; 2017-01-02)
PROC: 02100Z9 Bypass Coronary Artery, One Artery from Left Internal Mammary, Open Approach (ICD-10-PCS; 2017-01-02)
PROC: 06BP4ZZ Excision of Right Saphenous Vein, Percutaneous Endoscopic Approach (ICD-10-PCS; 2017-01-02)
PROC: 5A1221Z Performance of Cardiac Output, Continuous (ICD-10-PCS; 2017-01-02)
PROC: 04HY32Z Insertion of Monitoring Device into Lower Artery, Percutaneous Approach (ICD-10-PCS; 2017-01-02)
PROC: B246ZZ4 Ultrasonography of Right and Left Heart, Transesophageal (ICD-10-PCS; 2017-01-02)
PROC: 02RF08Z Replacement of Aortic Valve with Zooplastic Tissue, Open Approach (ICD-10-PCS; principal; 2017-01-02 10:03)
PROC: 4A023N6 Measurement of Cardiac Sampling and Pressure, Right Heart, Percutaneous Approach (ICD-10-PCS; 2017-01-02 10:03)
DX: I35.0 Nonrheumatic aortic (valve) stenosis (principal); I50.41 Acute combined systolic (congestive) and diastolic (congestive) heart failure; I24.8 Other forms of acute ischemic heart disease; I27.20 Pulmonary hypertension, unspecified; J98.11 Atelectasis; E83.51 Hypocalcemia; I25.10 Atherosclerotic heart disease of native coronary artery without angina pectoris; I25.5 Ischemic cardiomyopathy; Z80.6 Family history of leukemia; D72.829 Elevated white blood cell count, unspecified
CPT/HCPCS: 36430; 71010; 71020; 71275; 76937; 80048; 80053; 80061; 80307; 81001; 82550; 82810; 82948; 83036; 83735; 83880; 84100; 84155; 84439; 84443; 84484; 85002; 85025; 85027; 85347; 85379; 85610; 85730; 86850; 86900; 86901; 86920; 87641; 88305; 88311; 90686; 92978; 93005; 93306; 93318; 93456; 93880; 93970; 93998; 94002; 94010; 94150; 94640; 94664; 94667; 94668; C1753; C1769; C1887; C1893; G0378; J0131; J0171; J0690; J1265; J1644; J1815; J1817; J1885; J1940; J2150; J2250; J2370; J2720; J2930; J3010; J3370; J3475; J3480; J7030; J7040; J7050; J7060; J7120; P9016; P9047; Q2038; Q9967

== ENCOUNTER 2017-01-10 18:41 | Emergency (ER) | payer MEDICARE, OTHER ==
[~2017-01-10] VITALS: Ht 170.2 cm; Wt 83.0 kg
[~2017-01-10 18:41] MED LIST changes: +AMIO200T PO; +ASPI81CH25 CHEW; +ATOR40TA16 PO; -CYCL1TAB29 PO; +DOCU1CAP39 PO; +METO25TA3 PO; -NORC5TAB PO; +OXYC1TAB63 PO; +POLY17S PO; -PRED20 PO; +THERM PO
[2017-01-10 18:49] VITALS: BP 93/63; PULSE 90; RESP 16; TEMP 98.4; O2SAT 99
--- NOTE | 2017-01-10 20:12 | PD ---
HPI Chief Complaint: Altered Mental Status Time Seen by Provider: 19:39 Travel History International Travel<30 days: No Contact w/Intl Traveler<30days: No Traveled to known affect area: No History of Present Illness HPI 61-year-old male brought in by his son for mental confusion. Patient status post aortic valve replacement and double bypass surgery 8 days ago. Patient was given prescription for amiodarone, atorvastatin, metoprolol and oxycodone. Patient has been taking oral medication as directed except oxycodone occasionally or pain. Patient's son states that patient is more confused since this afternoon. Patient since check the medication and found out that 3 missing oxycodone from the bottle. Patient does not remember taking the oxycodone. Patient denies any headache. Patient denies any neck pain. Patient denies any chest pain or shortness of breath. Patient denies abdominal pain. Patient denies any focal weakness or numbness of extremity. Patient denies any alcohol or drug abuse. Patient has history of CHF, hyperlipidemia. PFSH Past Medical History Hx Anticoagulant Therapy: No Arthritis: No Asthma: No Heart Rhythm Problems: No Cancer: No Cardiac Catheterization: Yes Cardiovascular Problems: Yes High Cholesterol: Yes Chemotherapy: No Congestive Heart Failure: Yes COPD: No Cerebrovascular Accident: No Coronary Artery Disease: Yes Diabetes: No Diminished Hearing: No Endocrine: No Gastrointestinal Disorders: No GERD: No Glaucoma: No Genitourinary: No Headaches: No Hepatitis: No Hiatal Hernia: No Hypertension: No Immune Disorder: No Implanted Vascular Access Dvce: Yes Musculoskeletal: No Neurologic: No Psychiatric: No Reproductive: No Respiratory: Yes Immunizations Current: No Migraines: No Renal Failure: No Seizures: No Thyroid Disease: No Ulcer: No Tetanus Vaccination: < 5 Years Influenza Vaccination: Yes Past Surgical History Abdominal Surgery: No Body Medical Devices: CERVICAL HARDWARE Cardiac Surgery: Yes (AORTIC VALVE REPLACEMENT 01/02/17) Coronary Artery Bypass Graft: Yes (2 vessel 01/02/17) Ear Surgery: No Endocrine Surgery: No Eye Surgery: No Genitourinary Surgery: No Gynecologic Surgery: No Oral Surgery: No Pacemaker: No Thoracic Surgery: No Tonsillectomy: Yes Other Surgery: Yes Social History Alcohol Use: Yes (Rare) Tobacco Use: No Substance Use: No Allergies-Medications (Allergen,Severity, Reaction): Coded Allergies: No Known Allergies (Unverified , 01/10/17) patient denies allergies Reported Meds & Prescriptions Reported Meds & Active Scripts Active Thera M Plus (Multivitamins/Minerals Therapeutic) 1 Tab 1 Tab PO DAILY Polyethylene Glycol 3350 Powder (Polyethylene Glycol) 17 Gram Pow 17 Gm PO DAILY Oxycodone-Acetaminophen 5-325 mg Tab 1 Tab PO Q4H PRN Aspirin Low Strength (Aspirin) 81 Mg Chew 81 Mg CHEW DAILY Metoprolol Tartrate 25 Mg Tab 12.5 Mg PO Q12HR Atorvastatin (Atorvastatin Calcium) 40 Mg Tab 40 Mg PO HS Amiodarone (Amiodarone HCl) 200 Mg Tab 200 Mg PO Q12HR Review of Systems General / Constitutional: No: Fever Eyes: No: Visual changes HENT: No: Headaches Cardiovascular: No: Chest Pain or Discomfort Respiratory: No: Shortness of Breath Gastrointestinal: No: Abdominal Pain Genitourinary: No: Dysuria Musculoskeletal: No: Pain Skin: No Rash Neurologic: No: Weakness Psychiatric: No: Depression Endocrine: No: Polydipsia Hematologic/Lymphatic: No: Easy Bruising Physical Exam Narrative GENERAL: Well-nourished, well-developed patient. SKIN: Focused skin assessment warm/dry. HEAD: Normocephalic. EYES: No scleral icterus. No injection or drainage. NECK: Supple, trachea midline. No JVD or lymphadenopathy. CARDIOVASCULAR: Regular rate and rhythm without murmurs, gallops, or rubs. RESPIRATORY: Breath sounds equal bilaterally. No accessory muscle use. GASTROINTESTINAL: Abdomen soft, non-tender, nondistended. MUSCULOSKELETAL: No cyanosis, or edema. BACK: Nontender without obvious deformity. No CVA tenderness. Neurologic exam: Patient alert and awake and oriented to the place and person. Patient moves all extremity well. No obvious focal neurological deficit. Data Data Last Documented VS Vital Signs Date Time Temp Pulse Resp B/P (MAP) Pulse Ox O2 Delivery O2 Flow Rate FiO2 01/10/17 19:12 86 Room Air 01/10/17 18:49 98.4 16 93/63 (73) 99 Orders Orders Electrocardiogram (01/10/17 20:05) Complete Blood Count With Diff (01/10/17 20:05) Comprehensive Metabolic Panel (01/10/17 20:05) Creatine Kinase (Cpk) (01/10/17 20:05) Troponin I (01/10/17 20:05) Prothrombin Time / Inr (Pt) (01/10/17 20:05) Act Partial Throm Time (Ptt) (01/10/17 20:05) Urinalysis - C+S If Indicated (01/10/17 20:05) Thyroid Stimulating Hormone (01/10/17 20:05) Chest, Single Ap (01/10/17 20:05) Ct Brain W/O Iv Contrast(Rout) (01/10/17 20:05) Iv Access Insert/Monitor (01/10/17 20:05) Ecg Monitoring (01/10/17 20:05) Oximetry (01/10/17 20:05) Drug Screen, Random Urine (01/10/17 20:05) Salicylates (Aspirin) (01/10/17 20:05) Tylenol (Acetaminophen) (01/10/17 20:05) Sodium Chlor 0.9% 1000 Ml Inj (Ns 1000 M (01/10/17 20:15) Labs Laboratory Tests Test 01/10/17 20:20 White Blood Count 8.9 TH/MM3 Red Blood Count 3.95 MIL/MM3 Hemoglobin 11.0 GM/DL Hematocrit 33.2 % Mean Corpuscular Volume 84.1 FL Mean Corpuscular Hemoglobin 27.9 PG Mean Corpuscular Hemoglobin Concent 33.1 % Red Cell Distribution Width 13.0 % Platelet Count 79 TH/MM3 Mean Platelet Volume 6.8 FL Neutrophils (%) (Auto) 74.0 % Lymphocytes (%) (Auto) 15.6 % Monocytes (%) (Auto) 8.2 % Eosinophils (%) (Auto) 1.0 % Basophils (%) (Auto) 1.2 % Neutrophils # (Auto) 6.6 TH/MM3 Lymphocytes # (Auto) 1.4 TH/MM3 Monocytes # (Auto) 0.7 TH/MM3 Eosinophils # (Auto) 0.1 TH/MM3 Basophils # (Auto) 0.1 TH/MM3 CBC Comment AUTO DIFF Differential Comment AUTO DIFF CONFIRMED Platelet Estimate LOW Platelet Morphology Comment NORMAL Red Cell Morphology Comment NORMAL Prothrombin Time 11.7 SEC Prothromb Time International Ratio 1.1 RATIO Activated Partial Thromboplast Time 29.4 SEC Blood Urea Nitrogen 27 MG/DL Creatinine 1.60 MG/DL Random Glucose 96 MG/DL Total Protein 7.1 GM/DL Albumin 3.2 GM/DL Calcium Level 8.6 MG/DL Alkaline Phosphatase 76 U/L Aspartate Amino Transf (AST/SGOT) 31 U/L Alanine Aminotransferase (ALT/SGPT) 42 U/L Total Bilirubin 0.6 MG/DL Sodium Level 137 MEQ/L Potassium Level 4.3 MEQ/L Chloride Level 104 MEQ/L Carbon Dioxide Level 25.8 MEQ/L Anion Gap 7 MEQ/L Estimat Glomerular Filtration Rate 44 ML/MIN Total Creatine Kinase 70 U/L Troponin I 0.14 NG/ML Thyroid Stimulating Hormone 3rd Gen 3.580 uIU/ML Salicylates Level LESS THAN 1.7 MG/DL MDM Medical Decision Making Medical Screen Exam Complete: Yes Emergency Medical Condition: Yes Interpretation(s) Last Impressions Head CT 01/10/172004 Signed Impressions: Service Date/Time: Tuesday, January 10, 2017 20:26 - CONCLUSION: 1. No acute intracranial abnormalities. Kennedy Munoz MD Chest X-Ray 01/10/172004 Signed Impressions: Service Date/Time: Tuesday, January 10, 2017 20:14 - CONCLUSION: Cardiomegaly. Postop median sternotomy and aortic valve replacement. Mild basilar atelectasis and scarring. Kennedy Munoz MD 21:54 PM. CBC with WBC 8.9. Hemoglobin 11.0, hematocrit 33.2. Platelet 79. Normal differential. BUN 27. Creatinine 1.6. Troponin 0.14. Differential Diagnosis Differential diagnosis including side effect to medication, electrolyte abnormality, dehydration, TIA, CVA, sepsis. Narrative Course 61-year-old male with mental confusion. Patient is on new medication for the past 8 days after aortic valve replacement and bypass surgery. 21:56 PM. Patient does not want to wait for further test results. Patient wants to leave. Diagnosis Primary Impression: Altered mental status, unspecified Qualified Codes: R40.4 - Transient alteration of awareness Patient Instructions: General Instructions Additional Instructions: Advised patient to avoid oxycodone. Continue with all other medications. Follow-up with personal physician. Return if persistent problem or worse. Med/Other Pt SpecificInfo: Existing Med Changed Disposition: DISCHARGE HOME Condition: Stable Buck Mercedes MD Jan 10, 2017 20:12
[2017-01-10] MEDS ORDERED: SODIUM CHLOR 0.9% 1000 ML INJ 1,000 ML IV SCH (20:15)
[2017-01-10 20:33] LABS: AUTOMATED NEUTROPHIL # 6.6 TH/MM3 (1.8-7.7); BASOPHIL # 0.1 TH/MM3 (0-0.2); BASOPHIL % 1.2 % (0.0-2.0); EOSINOPHIL # 0.1 TH/MM3 (0-0.4); HEMATOCRIT 33.2 % (39.0-51.0); LYMPH % 15.6 % (9.0-44.0); LYMPHOCYTE # 1.4 TH/MM3 (1.0-4.8); MEAN CELL VOLUME 84.1 FL (80.0-100.0); MEAN CORPUSCULAR HEMOGLOBIN 27.9 PG (27.0-34.0); MEAN CORPUSCULAR HGB CONC 33.1 % (32.0-36.0); MEAN PLATELET VOLUME 6.8 FL (7.0-11.0); MONO % 8.2 % (0.0-8.0); MONOCYTE # 0.7 TH/MM3 (0-0.9); PLATELET COUNT 79 TH/MM3 (150-450); RED BLOOD COUNT 3.95 MIL/MM3 (4.50-5.90); WHITE BLOOD COUNT 8.9 TH/MM3 (4.0-11.0)
--- NOTE | 2017-01-10 20:38 | RADRPT ---
EXAM DATE/TIME: 01/10/2017 20:14 [facility] COMPARISON: CHEST SINGLE AP, January 06, 2017, 4:52. INDICATIONS : Shortness of breath, cough. MEDICAL HISTORY : None. SURGICAL HISTORY : Tonsillectomy. Discectomy, cervical. CABG. ENCOUNTER: Initial ACUITY: 1 day PAIN SCORE: 0/10 LOCATION: Bilateral chest FINDINGS: Postop median sternotomy. Cardiomegaly. Minimal basilar atelectasis or scarring. No effusion. No pneu mothorax. CONCLUSION: Cardiomegaly. Postop median sternotomy and aortic valve replacement. Mild basilar atelectasis and sca rring. Kennedy Munoz MD on January 10, 2017 at 20:36 Board Certified Radiologist. This report was verified electronically.
[2017-01-10 20:42] LABS: CHLORIDE 104 MEQ/L (98-107); SODIUM (NA) 137 MEQ/L (136-145)
[2017-01-10 20:46] LABS: ALBUMIN 3.2 GM/DL (3.4-5.0); BICARBONATE 25.8 MEQ/L (21.0-32.0); BLOOD UREA NITROGEN 27 MG/DL (7-18); CALCIUM 8.6 MG/DL (8.5-10.1); GLUCOSE,RANDOM 96 MG/DL (74-106)
[2017-01-10 20:49] LABS: ALT (GPT) 42 U/L (12-78); AST (GOT) 31 U/L (15-37)
[2017-01-10 20:50] LABS: GLOMERULAR FILTRATION RATE 44 ML/MIN (>89)
[2017-01-10 20:51] LABS: TOTAL BILIRUBIN ADULT 0.6 MG/DL (0.2-1.0); TOTAL PROTEIN 7.1 GM/DL (6.4-8.2)
[2017-01-10 20:52] LABS: ALKALINE PHOSPHATASE 76 U/L (45-117)
[2017-01-10 20:54] LABS: TROPONIN I 0.14 NG/ML (0.02-0.05)
[2017-01-10 20:57] LABS: INTERNATIONAL NORMALIZED RATIO 1.1 RATIO; PROTHROMBIN TIME - PATIENT 11.7 SEC (9.8-11.6)
--- NOTE | 2017-01-10 20:57 | RADRPT ---
EXAM DATE/TIME: 01/10/2017 20:26 [facility] COMPARISON: CT BRAIN W/O CONTRAST, September 20, 2016, 9:35. INDICATIONS : Confusion. Patient is status post CABG 01/02/2017 RADIATION DOSE: 62.31 CTDIvol (mGy) MEDICAL HISTORY : Congestive hearrt failure. SURGICAL HISTORY : Fusion, cervical. Tonsillectomy. ENCOUNTER: Initial ACUITY: 1 day PAIN SCALE: 0/10 LOCATION: cranial TECHNIQUE: Multiple contiguous axial images were obtained of the head. Using automated exposure control and adj ustment of the mA and/or kV according to patient size, radiation dose was kept as low as reasonably a chievable to obtain optimal diagnostic quality images. DICOM format image data is available electro nically for review and comparison. FINDINGS: CEREBRUM: The ventricles are normal for age. No evidence of midline shift, mass lesion, hemorrhage or acute in farction. No extra-axial fluid collections are seen. POSTERIOR FOSSA: The cerebellum and brainstem are intact. The 4th ventricle is midline. The cerebellopontine angle i s unremarkable. EXTRACRANIAL: The visualized portion of the orbits is intact. SKULL: The calvaria is intact. No evidence of skull fracture. CONCLUSION: 1. No acute intracranial abnormalities. Kennedy Munoz MD on January 10, 2017 at 20:54 Board Certified Radiologist. This report was verified electronically.
[2017-01-10 21:56] VITALS: BP 125/67; PULSE 86; RESP 16; O2SAT 97
[2017-01-10 21:57] LABS: BILIRUBIN, URINE NEG (NEG); BLOOD, URINE NEG (NEG); GLUCOSE,URINE NEG (NEG); KETONE, URINE TRACE mg/dL (NEG); NITRITE,URINE NEG (NEG); URINE LEUKOCYTE ESTERASE NEG (NEG)
[2017-01-10 22:02] LABS: ACETAMINOPHEN LESS THAN 2.0 MCG/ML (10.0-30.0)
[2017-01-10 22:19] LABS: MUCUS URINE FEW /lpf (OCC); URINE COLOR YELLOW (YELLW/STRAW)
[2017-01-10 22:20] LABS: SQUAMOUS EPITHELIAL CELL URINE 0-5 /hpf (0-5); WBC, URINE 0-2 /hpf (0-5)
--- NOTE | 2017-01-11 13:27 | EKG ---
Date Performed: 01/10/2017 Time Performed: 20:41:45 PTAGE: 61 years EKG: Sinus rhythm LEFT ATRIAL ENLARGEMENT POSSIBLE LEFT VENTRICULAR HYPERTROPHY NONSPECIFIC ST & T-WAVE ABNORMALITY AB NORMAL ECG PREVIOUS TRACING : 01/03/2017 05.32 DOCTOR: Woodrow Villeda Interpretating Date/Time 01/11/2017 13:27:15
== END 2017-01-10 22:07 | disposition home or self-care (01) ==
LOC: PHED 18:41
DX: R40.4 Transient alteration of awareness (principal); R41.0 Disorientation, unspecified; R94.31 Abnormal electrocardiogram [ECG] [EKG]; E78.5 Hyperlipidemia, unspecified; Z98.890 Other specified postprocedural states; Z79.899 Other long term (current) drug therapy; Z86.79 Personal history of other diseases of the circulatory system
CPT/HCPCS: 70450; 71010; 80053; 80307; 81001; 82550; 84443; 84484; 85025; 85610; 85730; 93005; 96360; 99285; J7030

== ENCOUNTER 2017-02-14 12:15 | Inpatient (IN) | payer MEDICARE, OTHER ==
[2017-02-14] VITALS (9 sets, daily range): BP systolic 104–119; BP diastolic 62–75; PULSE 61–76; RESP 16–18; TEMP 96.1–98.6; O2SAT 95–100
[~2017-02-14] VITALS: Ht 170.2 cm; Wt 75.8 kg
[~2017-02-14 12:15] MED LIST changes: -DOCU1CAP39 PO
[2017-02-14] MEDS ORDERED: SODIUM CHLOR 0.9% 1000 ML INJ 1,000 ML IV ONE (12:27)
--- NOTE | 2017-02-14 12:29 | PD ---
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 no aggravating/alelviating factors. no assoc factors of daigle/cp/ abdpain/backpain/n/v/d/ PER PT NO PCP ALL:[facility] PMHX: AORTIC STENOSIS ?REPAIR?, HTN , CHF, PFSH Past Medical History Hx Anticoagulant Therapy: No Arthritis: No Asthma: No Heart Rhythm Problems: No Cancer: No Cardiac Catheterization: Yes Cardiovascular Problems: Yes High Cholesterol: Yes Chemotherapy: No Congestive Heart Failure: Yes COPD: No Cerebrovascular Accident: No Coronary Artery Disease: Yes Diabetes: No Diminished Hearing: No Endocrine: No Gastrointestinal Disorders: No GERD: No Glaucoma: No Genitourinary: No Headaches: No Hepatitis: No Hiatal Hernia: No Hypertension: No Immune Disorder: No Implanted Vascular Access Dvce: Yes Musculoskeletal: No Neurologic: No Psychiatric: No Reproductive: No Respiratory: Yes Immunizations Current: No Migraines: No Renal Failure: No Seizures: No Thyroid Disease: No Ulcer: No Past Surgical History Abdominal Surgery: No Body Medical Devices: CERVICAL HARDWARE Cardiac Surgery: Yes (AORTIC VALVE REPLACEMENT 01/02/17) Coronary Artery Bypass Graft: Yes (2 vessel 01/02/17) Ear Surgery: No Endocrine Surgery: No Eye Surgery: No Genitourinary Surgery: No Gynecologic Surgery: No Oral Surgery: No Pacemaker: No Thoracic Surgery: No Tonsillectomy: Yes Other Surgery: Yes Social History Alcohol Use: Yes (Rare) Tobacco Use: No Substance Use: No Allergies-Medications (Allergen,Severity, Reaction): Coded Allergies: No Known Allergies (Unverified Allergy, Unknown, 02/14/17) patient denies allergies Reported Meds & Prescriptions Reported Meds & Active Scripts Active Thera M Plus (Multivitamins/Minerals Therapeutic) 1 Tab 1 Tab PO DAILY Polyethylene Glycol 3350 Powder (Polyethylene Glycol) 17 Gram Pow 17 Gm PO DAILY Aspirin Low Strength (Aspirin) 81 Mg Chew 81 Mg CHEW DAILY Metoprolol Tartrate 25 Mg Tab 12.5 Mg PO Q12HR Atorvastatin (Atorvastatin Calcium) 40 Mg Tab 40 Mg PO HS Amiodarone (Amiodarone HCl) 200 Mg Tab 200 Mg PO Q12HR Review of Systems Neurologic: Positive: Paresthesia, Other (slurred speech, see hpi) Physical Exam Narrative GENERAL: SKIN: Warm and dry. HEAD: Atraumatic. Normocephalic. EYES: Pupils equal and round. No scleral icterus. No injection or drainage. ENT: No nasal bleeding or discharge. Mucous membranes pink and moist. NECK: Trachea midline. No JVD. CARDIOVASCULAR: Regular rate and rhythm. RESPIRATORY: No accessory muscle use. Clear to auscultation. Breath sounds equal bilaterally. GASTROINTESTINAL: Abdomen soft, non-tender, nondistended. Hepatic and splenic margins not palpable. MUSCULOSKELETAL: Extremities without clubbing, cyanosis, or edema. No obvious deformities. NEUROLOGICAL: Awake and alert. No obvious cranial nerve deficits. Motor grossly within normal limits. Five out of 5 muscle strength in the arms and legs. Normal speech. PSYCHIATRIC: Appropriate mood and affect; insight and judgment normal. Data Data Last Documented VS Vital Signs Date Time Temp Pulse Resp B/P (MAP) Pulse Ox O2 Delivery O2 Flow Rate FiO2 02/14/17 12:46 69 16 105/71 (82) 96 Nasal Cannula 2.00 02/14/17 12:25 98.6 Orders Orders Cath For Specimen (02/14/17 12:27) Neuro Checks Q2HX12,Q4H (02/14/17 12:27) Nursing Bedside Swallow Assess .ONCE (02/14/17 12:27) Activity Bed Rest (02/14/17 12:27) Diet Npo (02/14/17 Lunch) Prothrombin Time / Inr (Pt) (02/14/17 12:27) Act Partial Throm Time (Ptt) (02/14/17 12:27) Complete Blood Count With Diff (02/14/17 12:27) Basic Metabolic Panel (Bmp) (02/14/17 12:27) Fibrinogen (02/14/17 12:27) Creatine Kinase (Cpk) (02/14/17 12:27) Troponin I (02/14/17 12:27) Ua Includes Microscopic (02/14/17 12:27) Drug Screen, Random Urine (02/14/17 12:27) Type And Screen (02/14/17 12:27) Ct Brain W/O Iv Contrast(Rout) (02/14/17 ) Chest, Single Ap (02/14/17 ) Electrocardiogram (02/14/17 ) Sodium Chlor 0.9% 1000 Ml Inj (Ns 1000 M (02/14/17 12:27) Blood Glucose (02/14/17 12:27) Ecg Monitoring (02/14/17 12:27) Iv Access Insert/Monitor (02/14/17 12:27) NPO (02/14/17 12:27) Oximetry (02/14/17 12:27) Oxygen Administration (02/14/17 12:27) Resp Oxygen Nate C Titrat 1-4 L (02/14/17 12:27) Labs Laboratory Tests Test 02/14/17 12:30 White Blood Count 10.6 TH/MM3 Red Blood Count 5.13 MIL/MM3 Hemoglobin 13.8 GM/DL Hematocrit 42.2 % Mean Corpuscular Volume 82.3 FL Mean Corpuscular Hemoglobin 26.9 PG Mean Corpuscular Hemoglobin Concent 32.7 % Red Cell Distribution Width 14.1 % Platelet Count 261 TH/MM3 Mean Platelet Volume 7.3 FL Neutrophils (%) (Auto) 74.2 % Lymphocytes (%) (Auto) 18.7 % Monocytes (%) (Auto) 6.2 % Eosinophils (%) (Auto) 0.4 % Basophils (%) (Auto) 0.5 % Neutrophils # (Auto) 7.8 TH/MM3 Lymphocytes # (Auto) 2.0 TH/MM3 Monocytes # (Auto) 0.7 TH/MM3 Eosinophils # (Auto) 0.0 TH/MM3 Basophils # (Auto) 0.1 TH/MM3 CBC Comment DIFF FINAL Differential Comment Prothrombin Time 11.1 SEC Prothromb Time International Ratio 1.0 RATIO Activated Partial Thromboplast Time 28.4 SEC Blood Urea Nitrogen 24 MG/DL Creatinine 1.60 MG/DL Random Glucose 87 MG/DL Calcium Level 9.0 MG/DL Sodium Level 135 MEQ/L Potassium Level 4.2 MEQ/L Chloride Level 102 MEQ/L Carbon Dioxide Level 24.8 MEQ/L Anion Gap 8 MEQ/L Estimat Glomerular Filtration Rate 44 ML/MIN Total Creatine Kinase 108 U/L Troponin I 0.04 NG/ML MDM Medical Decision Making Medical Screen Exam Complete: Yes Emergency Medical Condition: Yes Medical Record Reviewed: Yes Interpretation(s) nsr with 1st degree av block, 69, nonspec stt changes, no stemi pattern Differential Diagnosis cva v tia v atypical stemi v atypical nonstemi Narrative Course DUE TO FULL RESOLUTION OF SYMPTOMS IN SUCH A SHORT/BREVITY PATIENT DOES NOT QUALIFY FOR TPA, BUT WILL ADMIT FOR TIA. PATIENT MADE AWARE AND HE AGREES WELL. [facility] CALLED FOR ADMISSION Diagnosis Primary Impression: TIA Admitting Information Admitting Physician Requests: Observation Ray Gomez MD Feb 14, 2017 12:29
[2017-02-14 12:40] LABS: AUTOMATED NEUTROPHIL # 7.8 TH/MM3 (1.8-7.7); BASOPHIL # 0.1 TH/MM3 (0-0.2); BASOPHIL % 0.5 % (0.0-2.0); EOSINOPHIL % 0.4 % (0.0-4.0); HEMATOCRIT 42.2 % (39.0-51.0); HEMO FLAGS DIFF FINAL; LYMPH % 18.7 % (9.0-44.0); MEAN CELL VOLUME 82.3 FL (80.0-100.0); MEAN CORPUSCULAR HEMOGLOBIN 26.9 PG (27.0-34.0); MEAN CORPUSCULAR HGB CONC 32.7 % (32.0-36.0); MONO % 6.2 % (0.0-8.0); NEUT % 74.2 % (16.0-70.0); PLATELET COUNT 261 TH/MM3 (150-450); RED BLOOD COUNT 5.13 MIL/MM3 (4.50-5.90); RED CELL DISTRIBUTION WIDTH 14.1 % (11.6-17.2); WHITE BLOOD COUNT 10.6 TH/MM3 (4.0-11.0)
[2017-02-14 12:48] LABS: POTASSIUM 4.2 MEQ/L (3.5-5.1)
[2017-02-14 12:51] LABS: BICARBONATE 24.8 MEQ/L (21.0-32.0)
[2017-02-14 12:53] LABS: APTT (PATIENT) 28.4 SEC (24.3-30.1); PROTHROMBIN TIME - PATIENT 11.1 SEC (9.8-11.6)
--- NOTE | 2017-02-14 13:16 | RADRPT ---
EXAM DATE/TIME: 02/14/2017 12:36 [facility] COMPARISON: CT BRAIN W/O CONTRAST, January 10, 2017, 20:26. INDICATIONS : Right upper extremity numbness, slurred speech. RADIATION DOSE: 58.79 CTDIvol (mGy) MEDICAL HISTORY : Cardiovascular disease. Hypertension. SURGICAL HISTORY : Aortic valve replacement ENCOUNTER: Initial ACUITY: 1 day PAIN SCALE: 0/10 LOCATION: cranial TECHNIQUE: Multiple contiguous axial images were obtained of the head. Using automated exposure control and adj ustment of the mA and/or kV according to patient size, radiation dose was kept as low as reasonably a chievable to obtain optimal diagnostic quality images. DICOM format image data is available electro nically for review and comparison. FINDINGS: CEREBRUM: The ventricles are normal for age. No evidence of midline shift, mass lesion, hemorrhage or acute in farction. No extra-axial fluid collections are seen. POSTERIOR FOSSA: The cerebellum and brainstem are intact. The 4th ventricle is midline. The cerebellopontine angle i s unremarkable. EXTRACRANIAL: The visualized portion of the orbits is intact. SKULL: The calvaria is intact. No evidence of skull fracture. CONCLUSION: Normal examination for a patient of this age. No significant change has occurred. Kennedy Munoz MD on February 14, 2017 at 13:14 Board Certified Radiologist. This report was verified electronically.
--- NOTE | 2017-02-14 13:32 | HHI.HP ---
[facility] No Primary Care Physician Admission Diagnosis Diagnoses: (1) CVA (cerebral vascular accident) Diagnosis: Principal (2) Slurred speech Diagnosis: Principal (3) Facial droop Diagnosis: Principal (4) Right arm numbness Diagnosis: Principal Chief Complaint: Speech, right facial droop, right hand numbness Travel History International Travel<30 Days: No Contact w/Intl Traveler <30 Da: No Traveled to Known Affected Are: No History of Present Illness Written by Jasiel Palomino, acting as scribe for Dr. Norton on 02/14/17 at 13 :32. 61 year-old male with known history of hypertension, hyperlipidemia, coronary disease, recent aortic valve replacement secondary to aortic stenosis who presented to hospital because of neurological symptoms. Patient states that ever since he had his bypass surgery he is been having numbness to his right hand fifth and sixth digit. He states that it has been improving, and over the last 6 weeks he states that the feeling has almost returned to normal. Patient indicates that he has followed up with the cardiovascular surgeon who has cleared him for work and to have 6 month recheck. 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 The patient went and sat down in the back the truck and his friend noticed that he had difficulty in speaking and had obvious facial abnormality in which he believes that his jaw was contorted to the left. He developed weakness of his right hand where he could not open, close his hand or move it. He sat in the back of the truck for approximately 30 minutes and the symptoms improved to where he could talk again. At that time he asked his friends to bring him to the hospital for evaluation. A tiny got to the hospital his symptoms have almost completely resolved. Patient still having weakness with his right upper extremity. Patient has CT scan done which did not indicate any acute abnormality. Is recommended by ER physician the patient be observed for further workup and recommendations. Patient denies any visual disturbances, chest pain, shortness of breath, abdominal pain, nausea, vomiting, loss of bowel or bladder control Review of Systems Neurologic: COMPLAINS OF: Localized weakness, Speech Problems Except as stated in HPI: all other systems reviewed are Neg Past Family Social History Past Medical History Hypertension Hyperlipidemia Coronary artery disease History of aortic stenosis status post aortic valve replacement History of cervical and lumbar spine stenosis status post surgery Past Surgical History C5-C6, C6-C7 anterior cervical discectomy and interbody arthrodesis L4-L5, L5-S1 decompressive laminectomy, interbody arthrodesis with posterior lateral fusion using iliac crest bone graft Tonsillectomy Laparoscopic appendicectomy Aortic valve replacement with tissue valve Coronary bypass surgery 2 vessels Reported Medications Reported Meds & Active Scripts Active Thera M Plus (Multivitamins/Minerals Therapeutic) 1 Tab 1 Tab PO DAILY Polyethylene Glycol 3350 Powder (Polyethylene Glycol) 17 Gram Pow 17 Gm PO DAILY Aspirin Low Strength (Aspirin) 81 Mg Chew 81 Mg CHEW DAILY Metoprolol Tartrate 25 Mg Tab 12.5 Mg PO Q12HR Atorvastatin (Atorvastatin Calcium) 40 Mg Tab 40 Mg PO HS Amiodarone (Amiodarone HCl) 200 Mg Tab 200 Mg PO Q12HR Allergies: Coded Allergies: No Known Allergies (Unverified Allergy, Unknown, 02/14/17) patient denies allergies Family History Reviewed is significant for father with multiple sclerosis. Social History No indication of any tobacco, illicit drugs. Does use alcohol rarely Physical Exam Vital Signs Vital Signs Date Time Temp Pulse Resp B/P (MAP) Pulse Ox O2 Delivery O2 Flow Rate FiO2 02/14/17 13:18 96 Nasal Cannula 2.00 02/14/17 12:46 69 16 105/71 (82) 96 Nasal Cannula 2.00 02/14/17 12:35 95 Nasal Cannula 2.00 02/14/17 12:35 16 95 Nasal Cannula 2.00 02/14/17 12:29 16 95 Nasal Cannula 2.00 02/14/17 12:25 98.6 76 16 119/75 (90) 95 Physical Exam GENERAL: Well-developed, well-nourished, in no acute distress. alert and orientated HEENT: Head is normocephalic without any lesions or masses noted. Facial features are symmetric. Eyes: Pupils equal round reactive to light. Extraocular muscles are intact. Conjunctivae were clear. Oropharyngeal: Pharynx without any erythema edema. Tongue is midline without deviation. Buccal mucosa is moist without any masses or lesions NECK: Supple without any masses. Trachea midline no deviation. No JVD, no bruits are appreciated CARDIAC: Regular rhythm, regular rate. S1/S2 are heard. No murmurs gallops or rubs. LUNGS: Clear to auscultation bilaterally. No wheeze, rhonchi or rales. No use of accessory muscles on inspiration or expiration. ABDOMEN: Soft, nontender. Nondistended. Bowel sounds heard in all 4 quadrants. No organomegaly or masses. Negative rebound, negative guarding EXTREMITIES: No edema, pulses are equal bilaterally. No cyanosis or clubbing NEUROLOGY: Mood and affect appear appropriate. Cranial nerves II through XII grossly intact. 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 Muscle strength 5/5 in left upper and bilateral lower extremities. Deep tendon reflexes are 2+ in upper and lower extremities bilaterally. Laboratory Laboratory Tests Test 02/14/17 12:30 White Blood Count 10.6 Red Blood Count 5.13 Hemoglobin 13.8 Hematocrit 42.2 Mean Corpuscular Volume 82.3 Mean Corpuscular Hemoglobin 26.9 Mean Corpuscular Hemoglobin Concent 32.7 Red Cell Distribution Width 14.1 Platelet Count 261 Mean Platelet Volume 7.3 Neutrophils (%) (Auto) 74.2 Lymphocytes (%) (Auto) 18.7 Monocytes (%) (Auto) 6.2 Eosinophils (%) (Auto) 0.4 Basophils (%) (Auto) 0.5 Neutrophils # (Auto) 7.8 Lymphocytes # (Auto) 2.0 Monocytes # (Auto) 0.7 Eosinophils # (Auto) 0.0 Basophils # (Auto) 0.1 CBC Comment DIFF FINAL Differential Comment Prothrombin Time 11.1 Prothromb Time International Ratio 1.0 Activated Partial Thromboplast Time 28.4 Blood Urea Nitrogen 24 Creatinine 1.60 Random Glucose 87 Calcium Level 9.0 Sodium Level 135 Potassium Level 4.2 Chloride Level 102 Carbon Dioxide Level 24.8 Anion Gap 8 Estimat Glomerular Filtration Rate 44 Total Creatine Kinase 108 Troponin I 0.04 Result Diagram: 02/14/17 1230 02/14/17 1230 Imaging Last Impressions Head CT 02/14/17 0000 Signed Impressions: Service Date/Time: Tuesday, February 14, 2017 12:36 - CONCLUSION: Normal examination for a patient of this age. No significant change has occurred. MD Christelle Hitchcock VTE Risk Assessment Caprini VTE Risk Assessment: Mod/High Risk (score >= 2) Caprini Risk Assessment Model Point Value = 1 Point Value = 2 Point Value = 3 Point Value = 5 Age 41-60 Minor surgery BMI > 25 kg/m2 Swollen legs Varicose veins or History of unexplained or recurrent spontaneous Oral contraceptives or hormone replacement Sepsis (< 1 month) Serious lung disease, including pneumonia (< 1 month) Abnormal pulmonary function Acute myocardial infarction Congestive heart failure (< 1 month) History of inflammatory bowel disease Medical patient at bed rest Age 61-74 Arthroscopic surgery Major open surgery (> 45 min) Laparoscopic surgery (> 45 min) Malignancy Confined to bed (> 72 hours) Immobilizing plaster cast Central venous access Age >= 75 History of VTE Family history of VTE Factor V Leiden Prothrombin [id number] Lupus anticoagulant Anticardiolipin antibodies Elevated serum homocysteine Heparin-induced thrombocytopenia Other congenital or acquired thrombophilia Stroke (< 1 month) Elective arthroplasty Hip, pelvis, or leg fracture Acute spinal cord injury (< 1 month) Prophylaxis Regimen Total Risk Factor Score Risk Level Prophylaxis Regimen 0-1 Low Early ambulation 2 Moderate Order ONE of the following: *Sequential Compression Device (SCD) *Heparin 5000 units SQ BID 3-4 Higher Order ONE of the following medications: *Heparin 5000 units SQ TID *Enoxaparin/Lovenox 40 mg SQ daily (WT < 150 kg, CrCl > 30 mL/min) *Enoxaparin/Lovenox 30 mg SQ daily (WT < 150 kg, CrCl > 10-29 mL/min) *Enoxaparin/Lovenox 30 mg SQ BID (WT < 150 kg, CrCl > 30 mL/min) AND/OR *Sequential Compression Device (SCD) 5 or more Highest Order ONE of the following medications: *Heparin 5000 units SQ TID (Preferred with Epidurals) *Enoxaparin/Lovenox 40 mg SQ daily (WT < 150 kg, CrCl > 30 mL/min) *Enoxaparin/Lovenox 30 mg SQ daily (WT < 150 kg, CrCl > 10-29 mL/min) *Enoxaparin/Lovenox 30 mg SQ BID (WT < 150 kg, CrCl > 30 mL/min) AND *Sequential Compression Device (SCD) Assessment and Plan Problem List: (1) CVA (cerebral vascular accident) ICD Code: I63.9 - Cerebral infarction, unspecified Status: Acute (2) Right arm numbness ICD Code: R20.2 - Paresthesia of skin Status: Acute (3) Facial droop ICD Code: R29.810 - Facial weakness Status: Acute (4) Slurred speech ICD Code: R47.81 - Slurred speech Status: Acute Assessment and Plan 61-year-old man with Acute neurological symptoms, slurred speech, right facial droop, right hand numbness rule out CVA CT scan of the brain does not show any acute abnormality We'll obtain MRI/MRA of the brain Obtain echocardiogram Increased to full dose aspirin 325 mg daily Head of bed flat Permissive hypertension Monitor telemetry PT/OT/ST evaluations Additional laboratory studies to include hemoglobin A1c, B12, folate, TSH, RPR, sedimentation rate consult neurology for recommendations Hypertension, hyperlipidemia, coronary disease, congestive heart failure, recent aortic valve replacement, coronary bypass surgery Permissive hypertension at this time check lipid panel Continue statin Renal sufficiency, possible chronic kidney disease stage III Review of records indicates that since open-heart surgery patient has had worsened renal function Continue monitor renal function next line avoid nephrotoxins DVT prevention Sequential compression devices This note was transcribed by sade Palomino. I, Dr. Ander Norton personally performed the history, physical exam, and medical decision making; and confirmed the accuracy of the information in the transcribed note. Authenticated by Dr. Ander Norton on 02/14/17 at 13:32. Code Status Full code Discussed Condition With Patient, ED physician Jasiel Palomino Feb 14, 2017 13:32 Ander Norton MD Feb 14, 2017 13:33
--- NOTE | 2017-02-14 13:37 | RADRPT ---
EXAM DATE/TIME: 02/15/2017 01:10 [facility] COMPARISON: CHEST SINGLE AP, January 10, 2017, 20:14. INDICATIONS : TIA. Weakness. MEDICAL HISTORY : Cardiovascular disease. SURGICAL HISTORY : CABG. ENCOUNTER: Initial ACUITY: 1 day PAIN SCORE: 5/10 LOCATION: Bilateral chest FINDINGS: A single view of the chest demonstrates the lungs to be symmetrically aerated without evidence of mas s, infiltrate or effusion. Postoperative median sternotomy and aortic valve replacement. Previous fus ion lower cervical spine. CONCLUSION: 1. Stable linear scarring left midlung. No acute infiltrate or effusion. Kennedy Munoz MD on February 14, 2017 at 13:35 Board Certified Radiologist. This report was verified electronically.
[2017-02-14] MEDS ORDERED: RESP: ALBUTEROL 2.5 MG/IPRATROPIUM 0.5 MG NEB (PRN) NEB (13:45)
[2017-02-14] MEDS ORDERED: SODIUM CHLORIDE 0.9% FLUSH 5 ML FLUSH IV FLUSH PRN ×2 (13:45→18:15)
[2017-02-14] MEDS ORDERED: ENALAPRILAT 2.5 MG/2 ML VIAL IV PUSH PRN (13:45)
--- NOTE | 2017-02-14 15:43 | RADRPT ---
EXAM DATE/TIME: 02/14/2017 15:23 [facility] COMPARISON: CT BRAIN W/O CONTRAST, February 14, 2017, 12:36. INDICATIONS : Right upper extremity numbness. MEDICAL HISTORY : Cardiovascular disease Congestive heart failure. SURGICAL HISTORY : CABG Fusion, cervical. Fusion, lumbar. Aortic valve replacement. ENCOUNTER: Initial ACUITY: 1 day PAIN SCORE: 0/10 LOCATION: cranial TECHNIQUE: Multiplanar, multisequence MRI of the brain was performed without contrast. FINDINGS: CEREBRUM: The ventricles are normal for age. No evidence of midline shift, mass lesion, hemorrhage or acute in farction. No extraaxial fluid collections are seen. The pituitary gland and suprasellar cistern are normal in configuration. WHITE MATTER: There are several tiny areas of T2 prolongation in the frontal and parietal region. There is solitar y rounded areas of T2 performed patient in the right and left mid occipital white matter measuring 7 mm and 6 mm respectively. These are nonspecific in appearance. POSTERIOR FOSSA: The cerebellum and brainstem are intact. The 4th ventricle is midline. The cerebellopontine angle is unremarkable. The cerebellar tonsils are normal in position. DIFFUSION IMAGING: There is a tiny solitary area of restricted diffusion measuring 6 mm located in the highest convexity left parietal cortex. No T2 prolongation or T1 shortening. EXTRACRANIAL: The visualized portions of the orbits and paranasal sinuses are unremarkable. CONCLUSION: 1. Tiny area of acute infarction involving the cortex of one gyrus of the highest left parietal regio n. 2. 2 focal rounded areas of T2 prolongation in the posterior occipital white matter are nonspecific i n appearance. These do not have the typical appearance for demyelinating plaques. Felix Ferguson MD on February 14, 2017 at 15:35 Board Certified Radiologist. This report was verified electronically.
--- NOTE | 2017-02-14 15:44 | RADRPT ---
EXAM DATE/TIME: 02/14/2017 15:23 [facility] COMPARISON: No previous studies available for comparison. INDICATIONS : Right upper extremity numbness. MEDICAL HISTORY : Cardiovascular disease Congestive heart failure. SURGICAL HISTORY : CABG Fusion, cervical. Fusion, lumbar. Aortic valve replacement. ENCOUNTER: Initial ACUITY: 1 day PAIN SCORE: 0/10 LOCATION: cranial Please note a normal MRA of the brain does not entirely exclude the possibility of a small aneurysm, nor the possibility of distal intracranial vessel disease. TECHNIQUE: 3D time of flight MRA was performed. Source images, multiplanar STS MIP, and 3D volume MIP reconstru ctions were reviewed. FINDINGS: There is excellent visualization of the major intracranial arteries out to the second-order branch ve ssels. There is no evidence for aneurysm, vessel truncation or stenosis, and no evidence for vascula r malformation. Flow is seen in the anterior communicating artery. No flow is seen in either PCOM. CONCLUSION: Negative MRA of the [place]. No central vessel truncation. Felix Ferguson MD on February 14, 2017 at 15:41 Board Certified Radiologist. This report was verified electronically.
[2017-02-14] MEDS: SODIUM CHLOR 0.9% 1000 ML INJ 1,000 ML IV SCH ×2 (18:02→19:00)
[2017-02-14] MEDS ORDERED: DEXTROSE 50% IN WATER 50 ML VIAL(D50) IV PUSH PRN (18:15)
[2017-02-14] MEDS ORDERED: GLUCAGON 1 MG/ML VIAL OTHER PRN (18:15)
--- NOTE | 2017-02-14 18:21 | MB ---
cc: SLY CROSS DATE OF CONSULTATION 02/14/17 REASON FOR CONSULTATION TIA. HISTORY OF PRESENT ILLNESS Mr. Ackerman is a very nice 61-year-old man, history of coronary artery bypass surgery and aortic valve replacement about 6 months ago. Since that time has had some mild numbness in the right hand involving the fifth and __ digit. Today while he was out working in the yard he suddenly developed slurred speech and weakness of the right arm and right facial droop, presented to the hospital and since them his symptoms have improved. PERSONAL HISTORY History of aortic stenosis status post valve replacement, coronary artery disease, hyperlipidemia, hypertension, cervical lumbar stenosis status post surgery, tonsillectomy, coronary artery bypass procedure. MEDICINES At home: 1. Aspirin 81 milligrams daily. 2. Polyethylene glycol. 3. Thera-M. 4. Metoprolol 25 milligrams half b.i.d. 5. Atorvastatin 40 milligrams daily 6. Amiodarone 200 milligrams b.i.d. ALLERGIES None known. SOCIAL HISTORY Denies tobacco use or alcohol use of any significance. NEUROLOGIC EXAMINATION VITAL SIGNS: Blood pressure is 119/75, pulse 65 regular, respirations 18, temperature is 96.1 degrees. NEURO: Higher cortical functions are normal including speech. Cranial nerves II-XII are normal. Motor exam at this time he has got normal strength of all major groups in the upper and lower extremities. There is no drift. Fine motor skills are slightly diminished in the right hand. Reflexes are symmetric. IMAGING STUDIES CT of the brain no acute change. MRI of the brain shows a very small acute stroke in the left parietal area high up. MRA brain normal. CARDIOLOGY STUDIES Echocardiogram is currently pending. LABORATORY DATA White count 10,600, hemoglobin 13.8, hematocrit 42%, platelets 261,000, sed rate 27, sodium is 135, potassium 4.2, chloride 102, CO2 24.8, BUN is 24, creatinine 1.6, GFR is 44, glucose is 87, B12 653. PT is 11.1, INR 1, APTT 28.4. RPR pending. EKG normal sinus rhythm, first-degree AV block. IMPRESSION Very small left parietal stroke. His symptoms are improving. RECOMMENDATIONS Will start Plavix 75 milligrams daily. Will obtain an echocardiogram as well as a carotid ultrasound. Also, check lipid panel. Would recommend bedrest with head of bed flat overnight. MD DEMETRIO Chapin/YASMINE /6:05 PM /6:15 PM
[2017-02-14] MEDS ORDERED: TEMAZEPAM 15 MG CAP PO PRN (19:00)
[2017-02-14] MEDS ORDERED: ACETAMINOPHEN 325 MG TAB PO PRN (19:00)
[2017-02-14] MEDS ORDERED: ONDANSETRON HCL 4 MG/2 ML VIAL IV PUSH PRN (19:00)
[2017-02-14] MEDS ORDERED: DOCUSATE SODIUM 50 MG/SENNA 8.6 MG TAB PO PRN (19:00)
[2017-02-14 20:25] LABS: BLOOD, URINE NEG (NEG); GLUCOSE,URINE NEG (NEG); KETONE, URINE NEG (NEG); NITRITE,URINE NEG (NEG)
[2017-02-14 20:31] LABS: RBC, URINE 0-2 /hpf (0-3); SQUAMOUS EPITHELIAL CELL URINE 0-5 /hpf (0-5); URINE COLOR YELLOW (YELLW/STRAW); WBC, URINE 0-2 /hpf (0-5)
[2017-02-14] MEDS: SODIUM CHLORIDE 0.9% FLUSH 5 ML FLUSH IV FLUSH SCH (21:00)
[2017-02-14] MEDS: INSULIN ASPART SUPPLEMENTAL SCALE SQ SCH (21:00)
[2017-02-14] MEDS ORDERED: SODIUM CHLORIDE 0.9% FLUSH 5 ML FLUSH IV FLUSH SCH (21:00)
[2017-02-14] MEDS: ATORVASTATIN 40 MG TAB PO SCH (21:07)
--- NOTE | 2017-02-14 23:48 | EKG ---
Date Performed: 02/14/2017 Time Performed: 12:20:34 PTAGE: 61 years EKG: Sinus rhythm WITH FIRST DEGREE AV BLOCK LEFT ATRIAL ENLARGEMENT NONSPECIFIC T-WAVE ABNORMALITY ABNORMAL ECG INTER PRETATION BASED ON A DEFAULT AGE OF 40 YEARS PREVIOUS TRACING : 01/10/2017 20.41 Compared to prior tracing no significant change DOCTOR: Al Payne Interpretating Date/Time 02/14/2017 23:46:49
[2017-02-15] VITALS (8 sets, daily range): BP systolic 99–127; BP diastolic 61–73; PULSE 60–76; RESP 16–20; TEMP 96.9–98.9; O2SAT 94–99
[2017-02-15] MEDS: SODIUM CHLOR 0.9% 1000 ML INJ 1,000 ML IV SCH ×3 (04:09→22:38)
[2017-02-15] MEDS: INSULIN ASPART SUPPLEMENTAL SCALE SQ SCH ×4 (08:00→20:00)
[2017-02-15] MEDS: SODIUM CHLORIDE 0.9% FLUSH 5 ML FLUSH IV FLUSH SCH ×2 (09:00→19:49)
--- NOTE | 2017-02-15 09:38 | HHI.PR ---
Subjective Remarks Follow-up CVA 02/15/17-patient seen and examined still with some numbness in the right 4and 5th digits; no other focal deficits. Slurred speech resolved. Brain MRI positive for small area of acute infarction involving the cortex in the left parietal region Objective Vitals Vital Signs Date Time Temp Pulse Resp B/P (MAP) Pulse Ox O2 Delivery O2 Flow Rate FiO2 02/15/17 08:00 96.9 64 20 126/69 (88) 94 02/15/17 05:17 97.0 60 18 127/73 (91) 97 02/15/17 00:37 97.3 63 16 99/61 (74) 99 02/14/17 20:29 97.0 61 18 117/68 (84) 100 02/14/17 20:10 62 02/14/17 19:28 95 Nasal Cannula 2.00 02/14/17 16:00 96.1 65 18 115/62 (79) 99 02/14/17 14:39 69 16 104/72 (83) 98 Nasal Cannula 2.00 02/14/17 13:18 96 Nasal Cannula 2.00 02/14/17 12:46 69 16 105/71 (82) 96 Nasal Cannula 2.00 02/14/17 12:35 95 Nasal Cannula 2.00 02/14/17 12:35 16 95 Nasal Cannula 2.00 02/14/17 12:29 16 95 Nasal Cannula 2.00 02/14/17 12:25 98.6 76 16 119/75 (90) 95 I/O 02/14/17 02/14/17 02/14/17 02/15/17 02/15/17 02/15/17 07:00 15:00 23:00 07:00 15:00 23:00 Intake Total 100 ml 1075 ml Output Total 900 ml Balance 100 ml 175 ml Intake IV Total 100 ml 1075 ml Output Urine Total 900 ml # Voids 5 # Bowel Movements 0 Result Diagram: 02/14/17 1230 02/14/17 1230 Imaging Last Impressions Head Magnetic Resonance Angiography 02/14/171329 Signed Impressions: Service Date/Time: Tuesday, February 14, 2017 15:23 - CONCLUSION: Negative MRA of the [place]. No central vessel truncation. Felix Ferguson MD Brain MRI 11/25/17 1330 Signed Impressions: Service Date/Time: Tuesday, February 14, 2017 15:23 - CONCLUSION: 1. Tiny area of acute infarction involving the cortex of one gyrus of the highest left parietal region. 2. 2 focal rounded areas of T2 prolongation in the posterior occipital white matter are nonspecific in appearance. These do not have the typical appearance for demyelinating plaques. Felix Ferguson MD Head CT 02/14/17 0000 Signed Impressions: Service Date/Time: Tuesday, February 14, 2017 12:36 - CONCLUSION: Normal examination for a patient of this age. No significant change has occurred. Kennedy Munoz MD Chest X-Ray 02/14/17 0000 Signed Impressions: Service Date/Time: Wednesday, February 15, 2017 01:10 - CONCLUSION: 1. Stable linear scarring left midlung. No acute infiltrate or effusion. Kennedy Munoz MD Objective Remarks GENERAL: NAD SKIN: Warm and dry. HEAD: Normocephalic. EYES: No scleral icterus. No injection or drainage. NECK: Supple, trachea midline. No JVD or lymphadenopathy. CARDIOVASCULAR: Regular rate and rhythm without murmurs, gallops, or rubs. RESPIRATORY: Breath sounds equal bilaterally. No accessory muscle use. GASTROINTESTINAL: Abdomen soft, non-tender, nondistended. MUSCULOSKELETAL: No cyanosis, or edema. Neuro: numbness to right 4th and 5th digits finger. BACK: Nontender without obvious deformity. No CVA tenderness. A/P Problem List: (1) CVA (cerebral vascular accident) ICD Code: I63.9 - Cerebral infarction, unspecified Status: Acute (2) Right arm numbness ICD Code: R20.2 - Paresthesia of skin Status: Acute (3) Facial droop ICD Code: R29.810 - Facial weakness Status: Acute (4) Slurred speech ICD Code: R47.81 - Slurred speech Status: Acute Assessment and Plan 61-year-old man with Acute neurological symptoms, slurred speech, right facial droop, right hand numbness rule out CVA CT scan of the brain does not show any acute abnormality MRI Brain positive for small area of acute infarction involving the cortex in the left parietal region 2D echocardiogram Continue Aspirin 325 mg daily and Plavix Head of bed flat Permissive hypertension Monitor telemetry PT/OT/ST evaluations Appreciate input from neurology Hypertension, hyperlipidemia, coronary disease, congestive heart failure, recent aortic valve replacement, coronary bypass surgery Permissive hypertension at this time lipid panel pending Continue statin Renal sufficiency, possible chronic kidney disease stage III Review of records indicates that since open-heart surgery patient has had worsened renal function Continue monitor renal function next line avoid nephrotoxins DVT prevention Sequential compression devices Ander Norton MD Feb 15, 2017 09:38
[2017-02-15] MEDS: CLOPIDOGREL 75 MG TAB PO SCH (09:47)
[2017-02-15] MEDS: ASPIRIN 325 MG TAB PO SCH (09:47)
[2017-02-15] MEDS ORDERED: INFLUENZA VIRUS VACCINE (QUADRIVALENT) 0.5 ML SYR IM ONE (10:00)
[2017-02-15 11:17] LABS: HEMOGLOBIN A1a 1.1 %; HEMOGLOBIN A1b 0.8 %; HEMOGLOBIN Ao 86.5 %; HEMOGLOBIN F 0.8 %; HEMOGLOBIN LA1C 1.5 %; HEMOGLOBIN P3 3.7 %
[2017-02-15 11:55] LABS: HDL CHOLESTEROL 49.9 MG/DL (40.0-60.0)
--- NOTE | 2017-02-15 11:58 | RADRPT ---
EXAM DATE/TIME: 02/15/2017 10:57 [facility] COMPARISON: US CAROTID ARTERIES, December 31, 2016, 16:28. INDICATIONS : Cerebrovascular accident. MEDICAL HISTORY : Congestive heart failure. Dyspnea. SURGICAL HISTORY : Tonsillectomy. Orthopedic surgery, neck and back. Cardiac catheterization. ENCOUNTER: Subsequent ACUITY: 1 day PAIN SCORE: 0/10 LOCATION: Bilateral neck PEAK SYSTOLIC VELOCITIES (cm/sec): ICA/CCA RATIO: Right: 1.2 Left: 0.8 ICA: Right: 75 Left: 56 CCA: Right: 62 Left: 69 ECA: Right: 54 Left: 76 VERTEBRAL: Right: 43 antegrade Left: 29 antegrade Elevated flow velocities and ICA/CCA ratios have been found to correlate with increased degrees of vessel stenosis, calculated as percentage of diameter relative to a normal segment of distal ICA/CCA FINDINGS: RIGHT CAROTID: Mild shadowing calcified plaque in the carotid bulb. No significant stenosis is visualized. The wav eforms are within normal limits. LEFT CAROTID: No significant stenosis is visualized. The waveforms are within normal limits. VERTEBRAL ARTERIES: Antegrade flow is seen in both vertebral arteries. CONCLUSION: Hemodynamic profile is characteristic of less than 50% stenosis bilaterally. Felix Ferguson MD on February 15, 2017 at 11:55 Board Certified Radiologist. This report was verified electronically.
--- NOTE | 2017-02-15 12:51 | OTSOAPIP ---
TIME SESSION COMPLETED: SPOKE WITH MARY Vasquez PT 11:16 AM PHYSICAL THERAPY COMPLETED ASSESSMENT AND REPORTS NO FUNCTIONAL DEFICITS REQUIRING OCCUPATIONAL THERAPY. MARY Vasquez SPOKE WITH DR. HUBBARD TO CLEAR FOR DISCHARGE. Therapist: Jody Best OTR/L Signature on file
--- NOTE | 2017-02-15 17:58 | ECHRPT ---
Indication: cva/tia CONCLUSIONS The left ventricular systolic function is severely reduced with an estimated ejection fraction in th e range of 25-30%. Normal left ventricular size. [id number] mitral valve regurgitation. Mild aortic valve regurgitation. P1/2 530 Aortic valve mean gradient is 10 mmHg. Aortic valve area is 1.5 cm. The estimated pulmonary arterial pressure is 28.7 mmHg. BP: / HR: Rhythm: MEASUREMENTS (Male / Female) Normal Values Technical Quality:Good 2D ECHO LV Diastolic Diameter PLAX 4.6 cm 4.2 - 5.9 / 3.9 - 5.3 cm LV Systolic Diameter PLAX 4.1 cm IVS Diastolic Thickness 1.7 cm 0.6 - 1.0 / 0.6 - 0.9 cm LVPW Diastolic Thickness 1.6 cm 0.6 - 1.0 / 0.6 - 0.9 cm LV Relative Wall Thickness 0.7 RV Internal Dim ED PLAX 2.8 cm LVOT Diameter 2.6 cm M-MODE Aortic Root Diameter MM 2.7 cm LA Systolic Diameter MM 3.4 cm LA Ao Ratio MM 1.3 DOPPLER AV Peak Velocity 210.0 cm/s AV Peak Gradient 17.6 mmHg AV Mean Gradient 10.0 mmHg AV Velocity Time Integral 44.1 cm AI Peak Velocity 195.0 cm/s AI Peak Gradient 15.2 mmHg AI Pressure Half Time 537.0 ms LVOT Peak Velocity 57.1 cm/s LVOT Peak Gradient 1.3 mmHg LVOT Velocity Time Integral 12.1 cm AV Area Cont Eq vti 1.5 cm AV Area Cont Eq pk 1.4 cm Mitral E Point Velocity 67.6 cm/s Mitral A Point Velocity 81.9 cm/s Mitral E to A Ratio 0.8 LV E' Lateral Velocity 6.4 cm/s Mitral E to LV E' Lateral Ratio 10.5 LV E' Septal Velocity 7.2 cm/s Mitral E to LV E' Septal Ratio 9.4 TR Peak Velocity 216.0 cm/s TR Peak Gradient 18.7 mmHg Right Atrial Pressure 10.0 mmHg Pulmonary Artery Systolic Pressu 28.7 mmHg Right Ventricular Systolic Press 28.7 mmHg FINDINGS LEFT VENTRICLE The left ventricular systolic function is severely reduced with an estimated ejection fraction in th e range of 25-30%. Normal left ventricular size. RIGHT VENTRICLE Normal right ventricular size and systolic function. LEFT ATRIUM The left atrial size is normal. RIGHT ATRIUM The right atrial size is normal. ATRIAL SEPTUM Normal atrial septal thickness without atrial level shunting by limited color doppler interrogation. AORTA The aortic root and proximal ascending aorta are normal in size on limited imaging. MITRAL VALVE Structurally normal mitral valve. [id number] mitral valve regurgitation. AORTIC VALVE Mild aortic valve regurgitation. P1/2 530 Aortic valve mean gradient is 10 mmHg. Aortic valve area is 1.5 cm. TRICUSPID VALVE Structurally normal tricuspid valve. The estimated pulmonary arterial pressure is 28.7 mmHg. PULMONARY VALVE No pulmonary valve regurgitation or stenosis. VESSELS The inferior vena cava is normal in size. PERICARDIUM No pericardial effusion. Christian Smith MD, FACC, FSCAI (Electronically Signed) Final Date:15 February 2017 17:58
--- NOTE | 2017-02-15 19:19 | HHI.PR ---
Review/Management Diagnosis left parietal cva Plan recommend continue asa and plavix ok to discharge from neuro standpoint tomorrow if stable follow up with me in office in 2 weeks Recommend outpatient consult with handstitching machine armhole feller to consider intermission coordinator instrument tester to r/o intermittent afib Diagnosis/Plan: Subjective Subjective Comments No acute events reported Active Medications Current Medications Medications (Trade) Dose Ordered Sig/Elsa Route Start Time Stop Time Status Last Admin (Aspirin) 325 mg DAILY PO 02/15/17 09:00 02/15/17 09:47 (Duoneb Neb) 1 ampule Q2HR NEB PRN NEB 02/14/17 13:45 (Vasotec Inj) 2.5 mg Q6H PRN IV PUSH 02/14/17 13:45 (Lipitor) 40 mg HS PO 02/14/17 21:00 02/14/17 21:07 (NS Flush) 2 ml BID IV FLUSH 02/14/17 21:00 (NS Flush) 2 ml UNSCH PRN IV FLUSH 02/14/17 18:15 Sodium Chloride 1,000 ml @ 70 mls/hr [id number] IV 02/14/17 18:02 02/15/17 04:09 (Plavix) 75 mg DAILY PO 02/15/17 09:00 02/15/17 09:47 (NovoLOG SUPPLEMENTAL SCALE) 1 ACHS SQ 02/14/17 21:00 (D50w (Vial) Inj) 50 ml UNSCH PRN IV PUSH 02/14/17 18:15 (Glucagon Inj) 1 mg UNSCH PRN OTHER 02/14/17 18:15 (Tylenol) 650 mg Q4H PRN PO 02/14/17 19:00 (Zofran Inj) 4 mg Q6H PRN IV PUSH 02/14/17 19:00 (Gaviota-Colace) 1 tab BID PRN PO 02/14/17 19:00 (Restoril) 15 mg HS PRN PO 02/14/17 19:00 02/14/17 22:34 Allergies Allergies Coded Allergies No Known Allergies (Unverified Allergy, Unknown, 02/14/17) Exam I&O / VS 02/15/17 02/15/17 02/16/17 15:00 23:00 07:00 Intake Total 725 ml Balance 725 ml Intake Oral 725 ml # Voids 3 Vital Signs Date Time Temp Pulse Resp B/P (MAP) Pulse Ox O2 Delivery O2 Flow Rate FiO2 02/15/17 14:16 96 21 02/15/17 12:00 98.9 74 18 122/69 (86) 98 02/15/17 08:00 96.9 64 20 126/69 (88) 94 02/15/17 05:17 97.0 60 18 127/73 (91) 97 02/15/17 00:37 97.3 63 16 99/61 (74) 99 02/14/17 20:29 97.0 61 18 117/68 (84) 100 02/14/17 20:10 62 02/14/17 19:28 95 Nasal Cannula 2.00 Exam Comments alert, speech normal CN intact MOTOR 5/5 BUE and BLE Objective Micro and Labs Laboratory Tests Test 02/14/17 20:15 02/15/17 06:30 Urine Color YELLOW Urine Turbidity CLEAR Urine pH 6.0 Urine Specific [place] 1.028 Urine Protein TRACE Urine Glucose (UA) NEG Urine Ketones NEG Urine Occult Blood NEG Urine Nitrite NEG Urine Bilirubin NEG Urine Leukocyte Esterase NEG Urine RBC 0-2 Urine WBC 0-2 Urine Squamous Epithelial Cells 0-5 Urine Bacteria NONE Urine Opiates Screen NEG Urine Barbiturates Screen NEG Urine Amphetamines Screen POS Urine Benzodiazepines Screen NEG Urine Cocaine Screen NEG Urine Cannabinoids Screen NEG Triglycerides Level 142 Cholesterol Level 192 LDL Cholesterol 114 HDL Cholesterol 49.9 Cholesterol/HDL Ratio 3.84 Diagnostic Tests Carotid US--no significant stenosis ECHO--diminished EF Tmi King PhD Feb 15, 2017 19:19
[2017-02-15] MEDS: ATORVASTATIN 40 MG TAB PO SCH (19:53)
[2017-02-16 04:00] VITALS: BP 132/73; PULSE 86; RESP 18; TEMP 96; O2SAT 97
[2017-02-16 08:00] VITALS: BP 127/76; PULSE 70; RESP 16; TEMP 96.8; O2SAT 98
[2017-02-16] MEDS: INSULIN ASPART SUPPLEMENTAL SCALE SQ SCH (08:00)
[2017-02-16] MEDS ORDERED: PLAV75TA29 PO (08:34)
[2017-02-16] MEDS: SODIUM CHLORIDE 0.9% FLUSH 5 ML FLUSH IV FLUSH SCH (08:46)
[2017-02-16] MEDS: CLOPIDOGREL 75 MG TAB PO SCH (08:47)
[2017-02-16] MEDS: ASPIRIN 325 MG TAB PO SCH (08:47)
[2017-02-16] MEDS ORDERED: AMIODARONE 200 MG TAB PO SCH (09:00)
[2017-02-16] MEDS ORDERED: PILL SPLITTER OTHER PRN (09:00)
[2017-02-16] MEDS ORDERED: METOPROLOL TARTRATE 25 MG TAB PO SCH (09:00)
--- NOTE | 2017-02-16 09:02 | HHI.PR ---
Subjective Remarks Follow-up CVA 02/15/17-patient seen and examined still with some numbness in the right 4and 5th digits; no other focal deficits. Slurred speech resolved. Brain MRI positive for small area of acute infarction involving the cortex in the left parietal region 02/16/17-patient seen and examined, reports significant improvement of numbness in the right fourth and fifth digits fingers. Stable and ready for discharge home Objective Vitals Vital Signs Date Time Temp Pulse Resp B/P (MAP) Pulse Ox O2 Delivery O2 Flow Rate FiO2 02/16/17 08:00 96.8 70 16 127/76 (93) 98 02/16/17 04:00 96.0 86 18 132/73 (92) 97 02/15/17 21:45 98.9 74 16 124/68 (86) 98 02/15/17 21:42 94 21 02/15/17 19:55 76 02/15/17 14:16 96 21 02/15/17 12:00 98.9 74 18 122/69 (86) 98 I/O 02/15/17 02/15/17 02/15/17 02/16/17 02/16/17 02/16/17 07:00 15:00 23:00 07:00 15:00 23:00 Intake Total 1075 ml 725 ml 690 ml 723 ml Output Total 900 ml 600 ml Balance 175 ml 725 ml 690 ml 123 ml Intake Oral 725 ml IV Total 1075 ml 690 ml 723 ml Output Urine Total 900 ml 600 ml # Voids 5 3 # Bowel Movements 0 0 Result Diagram: 02/14/17 1230 02/14/17 1230 Imaging Last Impressions Carotid Artery Ultrasound 02/15/17 0000 Signed Impressions: Service Date/Time: Wednesday, February 15, 2017 10:57 - CONCLUSION: Hemodynamic profile is characteristic of less than 50%% stenosis bilaterally. Felix Ferguson MD Head Magnetic Resonance Angiography 02/14/17 975 Signed Impressions: Service Date/Time: Tuesday, February 14, 2017 15:23 - CONCLUSION: Negative MRA of the [place]. No central vessel truncation. Felix Ferguson MD Brain MRI 02/14/171329 Signed Impressions: Service Date/Time: Tuesday, February 14, 2017 15:23 - CONCLUSION: 1. Tiny area of acute infarction involving the cortex of one gyrus of the highest left parietal region. 2. 2 focal rounded areas of T2 prolongation in the posterior occipital white matter are nonspecific in appearance. These do not have the typical appearance for demyelinating plaques. Felix Ferguson MD Head CT 02/14/17 0000 Signed Impressions: Service Date/Time: Tuesday, February 14, 2017 12:36 - CONCLUSION: Normal examination for a patient of this age. No significant change has occurred. Kennedy Munoz MD Chest X-Ray 02/14/17 0000 Signed Impressions: Service Date/Time: Wednesday, February 15, 2017 01:10 - CONCLUSION: 1. Stable linear scarring left midlung. No acute infiltrate or effusion. Kennedy Munoz MD Objective Remarks GENERAL: NAD SKIN: Warm and dry. HEAD: Normocephalic. EYES: No scleral icterus. No injection or drainage. NECK: Supple, trachea midline. No JVD or lymphadenopathy. CARDIOVASCULAR: Regular rate and rhythm without murmurs, gallops, or rubs. RESPIRATORY: Breath sounds equal bilaterally. No accessory muscle use. GASTROINTESTINAL: Abdomen soft, non-tender, nondistended. MUSCULOSKELETAL: No cyanosis, or edema. Neuro:CN II-XII BACK: Nontender without obvious deformity. No CVA tenderness. Procedures none A/P Problem List: (1) CVA (cerebral vascular accident) ICD Code: I63.9 - Cerebral infarction, unspecified Status: Acute (2) Right arm numbness ICD Code: R20.2 - Paresthesia of skin Status: Resolved (3) Facial droop ICD Code: R29.810 - Facial weakness Status: Resolved (4) Slurred speech ICD Code: R47.81 - Slurred speech Status: Resolved Assessment and Plan 61-year-old man with Acute neurological symptoms, slurred speech, right facial droop, right hand numbness rule out CVA CT scan of the brain does not show any acute abnormality MRI Brain positive for small area of acute infarction involving the cortex in the left parietal region 2D echocardiogram with EF 25-30% Continue Aspirin 325 mg daily and Plavix d/c Head of bed flat d/c Permissive hypertension Monitor telemetry PT/OT/ST evaluations Appreciate input from neurology Hypertension, hyperlipidemia, coronary disease, congestive heart failure, recent aortic valve replacement, coronary bypass surgery d/c Permissive hypertension and resume Home medications lipid panel pending Continue statin Renal sufficiency, possible chronic kidney disease stage III Review of records indicates that since open-heart surgery patient has had worsened renal function Continue monitor renal function next line avoid nephrotoxins DVT prevention Sequential compression devices Ander Norton MD Feb 16, 2017 09:02
--- NOTE | 2017-02-16 09:06 | HHI.DS ---
Discharge Summary Admission Date Feb 14, 2017 at 18:55 Discharge Date: Feb 16, 2017 Admitting Diagnosis (1) CVA (cerebral vascular accident) ICD Code: I63.9 - Cerebral infarction, unspecified Status: Acute (2) Right arm numbness ICD Code: R20.2 - Paresthesia of skin Status: Resolved (3) Facial droop ICD Code: R29.810 - Facial weakness Status: Resolved (4) Slurred speech ICD Code: R47.81 - Slurred speech Status: Resolved Procedures none Brief History - From Admission Written by Jasiel Palomino, acting as scribe for Dr. Norton on 02/14/17 at 13 :32. 61 year-old male with known history of hypertension, hyperlipidemia, coronary disease, recent aortic valve replacement secondary to aortic stenosis who presented to hospital because of neurological symptoms. Patient states that ever since he had his bypass surgery he is been having numbness to his right hand fifth and sixth digit. He states that it has been improving, and over the last 6 weeks he states that the feeling has almost returned to normal. Patient indicates that he has followed up with the cardiovascular surgeon who has cleared him for work and to have 6 month recheck. 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 The patient went and sat down in the back the truck and his friend noticed that he had difficulty in speaking and had obvious facial abnormality in which he believes that his jaw was contorted to the left. He developed weakness of his right hand where he could not open, close his hand or move it. He sat in the back of the truck for approximately 30 minutes and the symptoms improved to where he could talk again. At that time he asked his friends to bring him to the hospital for evaluation. A tiny got to the hospital his symptoms have almost completely resolved. Patient still having weakness with his right upper extremity. Patient has CT scan done which did not indicate any acute abnormality. Is recommended by ER physician the patient be observed for further workup and recommendations. Patient denies any visual disturbances, chest pain, shortness of breath, abdominal pain, nausea, vomiting, loss of bowel or bladder control CBC/BMP: 02/14/17 1230 02/14/17 1230 Significant Findings Laboratory Tests Test 02/14/17 12:30 02/14/17 14:20 02/14/17 20:15 02/15/17 06:30 Mean Corpuscular Hemoglobin 26.9 PG (27.0-34.0) Neutrophils (%) (Auto) 74.2 % (16.0-70.0) Neutrophils # (Auto) 7.8 TH/MM3 (1.8-7.7) Erythrocyte Sedimentation Rate 27 mm/hr (0-20) Fibrinogen 442 mg/dL (227-377) Blood Urea Nitrogen 24 MG/DL (7-18) Creatinine 1.60 MG/DL (0.60-1.30) Sodium Level 135 MEQ/L (136-145) Estimat Glomerular Filtration Rate 44 ML/MIN (>89) Folate GREATER THAN 20.0 NG/ML Urine Amphetamines Screen POS (NEG) LDL Cholesterol 114 MG/DL (0-99) Imaging Last Impressions Carotid Artery Ultrasound 02/15/17 0000 Signed Impressions: Service Date/Time: Wednesday, February 15, 2017 10:57 - CONCLUSION: Hemodynamic profile is characteristic of less than 50%% stenosis bilaterally. Felix Ferguson MD Head Magnetic Resonance Angiography 02/14/171329 Signed Impressions: Service Date/Time: Tuesday, February 14, 2017 15:23 - CONCLUSION: Negative MRA of the [place]. No central vessel truncation. Felix Ferguson MD Brain MRI 02/14/171329 Signed Impressions: Service Date/Time: Tuesday, February 14, 2017 15:23 - CONCLUSION: 1. Tiny area of acute infarction involving the cortex of one gyrus of the highest left parietal region. 2. 2 focal rounded areas of T2 prolongation in the posterior occipital white matter are nonspecific in appearance. These do not have the typical appearance for demyelinating plaques. Felix Ferguson MD Head CT 02/14/17 0000 Signed Impressions: Service Date/Time: Tuesday, February 14, 2017 12:36 - CONCLUSION: Normal examination for a patient of this age. No significant change has occurred. Kennedy Munoz MD Chest X-Ray 02/14/17 0000 Signed Impressions: Service Date/Time: Wednesday, February 15, 2017 01:10 - CONCLUSION: 1. Stable linear scarring left midlung. No acute infiltrate or effusion. Kennedy Munoz MD PE at Discharge GENERAL: NAD SKIN: Warm and dry. HEAD: Normocephalic. EYES: No scleral icterus. No injection or drainage. NECK: Supple, trachea midline. No JVD or lymphadenopathy. CARDIOVASCULAR: Regular rate and rhythm without murmurs, gallops, or rubs. RESPIRATORY: Breath sounds equal bilaterally. No accessory muscle use. GASTROINTESTINAL: Abdomen soft, non-tender, nondistended. MUSCULOSKELETAL: No cyanosis, or edema. Neuro:CN II-XII BACK: Nontender without obvious deformity. No CVA tenderness. Hospital Course Patient was admitted with Acute neurological symptoms, slurred speech, right facial droop, right hand numbness and diagnosed with CVA with finding of small area of acute infarction involving the cortex in the left parietal region on brain MRI. He was started on treatment per stroke protocol with consultation to neurology. Aspirin was started along with Plavix as well as permissive hypertension. PT/OT/speech therapy consulted . Subsequently permissive hypertension will discontinued and patient's home antihypertensive medications were resumed. DVT and GI prophylaxis were provided. Patient's condition improved and vitals remained stable prior to discharge. Pt Condition on Discharge: Good Discharge Disposition: Discharge Home Discharge Time: <= 30 minutes Discharge Instructions DIET: Follow Instructions for: Heart Healthy Diet Activities you can perform: Regular-No Restrictions Follow up Referrals: Neurology PCP Follow-up - 1 Week New Medications: Clopidogrel (Plavix) 75 Mg Tab 75 MG PO DAILY for Prevent Blood Clot, #30 TAB 11 Refills Continued Medications: Amiodarone (Amiodarone) 200 Mg Tab 200 MG PO Q12HR for heart rhythm, #28 TAB 0 Refills Aspirin (Aspirin Low Strength) 81 Mg Chew 81 MG CHEW DAILY for Blood Clot Prevention, #30 EA 2 Refills Atorvastatin (Atorvastatin) 40 Mg Tab 40 MG PO HS for Cholesterol Management, #30 TAB 2 Refills Metoprolol Tartrate (Metoprolol Tartrate) 25 Mg Tab 12.5 MG PO Q12HR for Blood Pressure Management, #60 TAB 2 Refills Multiple Vitamins W/ Minerals (Thera M Plus) 1 Tab 1 TAB PO DAILY for multi vitamin, #30 TAB 2 Refills Polyethylene Glycol 3350 Powder (Polyethylene Glycol 3350 Powder) 17 Gram Pow 17 GM PO DAILY for Constipation, #30 PACKET Ander Norton MD Feb 16, 2017 09:05
== END 2017-02-16 11:08 | disposition home or self-care (01) | DRG 65 ==
LOC: PHED 12:15 → PHEDA 13:33 → PH3B 14:26 → OBSVTOIN 18:55
PROVIDERS: ADMIT Hospitalist; ATTEND Hospitalist
PROC: 3E0F7GC Introduction of Other Therapeutic Substance into Respiratory Tract, Via Natural or Artificial Opening (ICD-10-PCS; principal; 2017-02-14)
DX: I63.9 Cerebral infarction, unspecified (principal); R29.810 Facial weakness; R47.81 Slurred speech; I13.0 Hypertensive heart and chronic kidney disease with heart failure and stage 1 through stage 4 chronic kidney disease, or unspecified chronic kidney disease; I50.9 Heart failure, unspecified; N18.3 Chronic kidney disease, stage 3 (moderate); I25.10 Atherosclerotic heart disease of native coronary artery without angina pectoris; Z86.73 Personal history of transient ischemic attack (TIA), and cerebral infarction without residual deficits; Z95.3 Presence of xenogenic heart valve; Z95.1 Presence of aortocoronary bypass graft; E78.5 Hyperlipidemia, unspecified; Z79.82 Long term (current) use of aspirin; M48.061 Spinal stenosis, lumbar region without neurogenic claudication; I44.0 Atrioventricular block, first degree
CPT/HCPCS: 70450; 70544; 70551; 71010; 80048; 80061; 80307; 81001; 82550; 82607; 82746; 82948; 83036; 84443; 84484; 85025; 85384; 85610; 85652; 85730; 86592; 86850; 86900; 86901; 93005; 93306; 93880; G8987-GP; G8988-GP; G8996-GN; G8997-GN; G8998-GN; J7030

== ENCOUNTER 2017-03-03 10:12 | Emergency (ER) | payer MEDICARE, OTHER ==
[~2017-03-03] VITALS: Ht 170.2 cm; Wt 86.0 kg
[~2017-03-03 10:12] MED LIST changes: -OXYC1TAB63 PO; +PLAV75TA29 PO
[2017-03-03 10:14] VITALS: BP 137/84; PULSE 98; RESP 20; TEMP 97.9; O2SAT 98
[2017-03-03] MEDS ORDERED: ORPHENADRINE INJ 60 MG/2 ML AMP IM ONE (10:45)
[2017-03-03] MEDS ORDERED: KETOROLAC TROMETHAMINE 60 MG/2 ML (IM) VIAL IM ONE (10:45)
[2017-03-03] MEDS ORDERED: ROBA750T PO (11:08)
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
== END 2017-03-03 11:19 | disposition home or self-care (01) ==
LOC: PHED 10:12
DX: S16.1XXA Strain of muscle, fascia and tendon at neck level, initial encounter (principal); X50.9XXA Other and unspecified overexertion or strenuous movements or postures, initial encounter; Y93.H2 Activity, gardening and landscaping; Y92.007 Garden or yard of unspecified non-institutional (private) residence as the place of occurrence of the external cause
CPT/HCPCS: 96372; 99284; J1885; J2360